=== PATIENT | female | born 1990 ===

== ENCOUNTER 2020-02-18 12:20 | Outpatient (REF) | payer MEDICAID, SELFPAY | END 2020-02-18 12:21 | disposition home or self-care (01) | LOC: HO.LAB 12:20 | PROVIDERS: Visit Provider Internal Medicine | DX: Z20.828 Contact with and (suspected) exposure to other viral communicable diseases (principal) | CPT/HCPCS: C9803; U0003 ==

== ENCOUNTER 2020-08-04 17:44 | Emergency (ER) | payer MEDICAID, SELFPAY ==
[2020-08-04 18:00] VITALS: BP 119/62; PULSE 88; RESP 18; TEMP 36; O2SAT 99; BMI 46.9
--- NOTE | 2020-08-04 19:52 | ED.SKABFB ---
HPI - Skin/Abscess/Foreign Bdy General Chief complaint: Skin/Abscess/Foreign Body Stated complaint: infection? rash Source: patient Mode of arrival: ambulatory Limitations: no limitations History of Present Illness HPI narrative: Patient presents to ED for erythematous rash around surgical wound that has been occurring for the past 2 days. Patient states she had laparoscopic cholecystectomy July 23 in [place] and the past 2 days the 3 holes of entry has surrounding erythema, but negative for discharge. Related Data Previous Rx's Medication Instructions Recorded cephalexin 500 mg PO QID #28 cap 08/04/20 doxycycline hyclate 100 mg PO BID #14 cap 08/04/20 naproxen 500 mg PO BID PRN #28 tab 08/04/20 Allergies Allergy/AdvReac Type Severity Reaction Status Date / Time No Known Allergies Allergy Verified 08/04/20 18:55 Pt states no food allergies Allergy Unknown Unknown Uncoded 08/04/20 18:55 Review of Systems Review of Systems: Yes all other systems are reviewed and are negative Constitutional: Constitutional: Reports as per HPI and Reports no additional constitutional complaints Eyes: Eyes: Reports as per HPI and Reports no additional eye complaints ENT: Reports system reviewed and no additional complaints, except as documented and Reports as per HPI Cardiovascular: Cardiovascular: Reports as per HPI and Reports no additional cardiovascular complaints Respiratory: Respiratory: Reports as per HPI and Reports no additional respiratory complaints Gastrointestinal: Gastrointestinal: Reports as per HPI and Reports no additional gastrointestinal complaints Genitourinary: Genitourinary: Reports no additional female genitourinary complaints and Reports as per HPI Musculoskeletal: Musculoskeletal: Reports no additional musculoskeletal complaints and Reports as per HPI Neurologic: Reports system reviewed and no additional complaints, except as documented and Reports as per HPI Psychiatric: Psychiatric: Reports no additional psychiatric complaints and Reports as per HPI PMFSH Past Medical History Surgical History (Updated 08/04/20 @ 18:07 by Samson Oliveira) Hx of section Hx of tonsillectomy S/P cholecystectomy Family History Family History (Updated 05/14/20 @ 13:48 by Leighann Velez MA) Father Hypertension Mother Diabetes Maternal Grandmother Diabetes Paternal Grandfather Diabetes Cancer Paternal Grandmother Diabetes Arthritis of knee Social History Social History Advance Directives: No Advance Directives Information Provided: Yes Physical Exam Vital Signs: Vital Signs: Last Vital Signs Temp 96.8 F 08/04/20 18:00 Pulse 88 08/04/20 18:00 Resp 18 08/04/20 18:00 BP 119/62 08/04/20 18:00 Pulse Ox 99 08/04/20 18:00 Body Mass Index 46.9 Const: General: cooperative, healthy appearing, comfortable, no acute distress, well developed, alert and awake Orientation/consciousness: patient oriented x3 HENMT: Head: Yes normal to inspection, Yes No palpable skull fracture present, Yes normocephalic and Yes atraumatic Eyes: General: appearance normal, both eyes and all related structures Neck: Neck: Yes normal visual inspection, Yes full ROM, Yes no lymphadenopathy, Yes trachea midline, Yes supple and No tender Chest: Chest palpation & inspection: normal inspection of the chest and normal palpation of entire chest wall Resp: Effort & Inspection: normal respiratory effort and able to speak in complete sentences Auscultation: clear to auscultation bilaterally Cardio: Jugular venous distension: no JVD Heart sounds: S1 normal heart sound present and S2 normal heart sound present GI: Other: Positive for warmth and erythema around wound above umbilicus, and laparoscopic holes in right upper quadrant. All wounds negative for any pus discharge. Negative for abdominal tenderness Inspection: Yes normal to inspection and No abdominal wall ecchymosis Palpation (GI): Soft to palpation, not firm, nontender, no guarding and not rigid : General: No CVA tenderness and Yes no CVA tenderness Back/Spine/Pelvis: Back: no CVA tenderness, No CVA tenderness and No back tenderness Skin: Other: cellulitis on surgical wounds on [facility] General skin exam: no rashes or lesions noted and elasticity normal Neuro: General: patient oriented x3, gait normal and CN's II-XI intact bilaterally Cranial nerves: Yes CN's II-XII intact bilaterally Extrem: General: Yes normal to inspection and Yes full ROM Psych: Appearance: grossly normal, well kempt and not disheveled Course Course Course Narrative: History physical exam indicate cellulitis Reevaluation(s) Reevaluation #1: No labs indicated and not suspecting any abdominal abscess. Will discharge with antibiotics. Patient informed to follow up without surgical team at [facility] MDM - Skin/Abscess/Foreign Bdy MDM Narrative Medical decision making narrative: Cellulitis Discharge Plan Discharge Clinical Impression: Cellulitis, Postoperative wound infection Patient Disposition: Home, Self-Care Instructions: Wound Infection (ED), Cellulitis (ED) Additional Instructions: Regrese al servicio de urgencias si tiene dolor abdominal, enrojecimiento que empeora, secreci?n de pus, mal olor, fiebre, escalofr?os o cualquier otro s?ntoma preocupante. Antonette un seguimiento con el cirujano al que lo hemos referido en [facility]. Prescriptions: New cephalexin 500 mg capsule 500 mg PO QID Qty: 28 RF: 0 doxycycline hyclate 100 mg capsule 100 mg PO BID Qty: 14 RF: 0 naproxen 500 mg tablet 500 mg PO BID PRN (Reason: pain) Qty: 28 RF: 0 Referrals: Zino Burgos MD [Physician] - 2 days (Status post cholecystectomy 07/23 in [place]. Now with wound infection/cellulitis) Stand Alone Forms: Work/School Release Interventions: ED Discharge Assessment Last Done: 08/04/20 20:18 Discharge Date/Time: 08/04/20 20:19 Print Language: Gabonese
== END 2020-08-04 20:19 | disposition home or self-care (01) ==
PROVIDERS: Emergency Provider Internal Medicine
DX: L03.311 Cellulitis of abdominal wall (principal); Z79.899 Other long term (current) drug therapy
CPT/HCPCS: 99283

== ENCOUNTER → 2020-09-06 08:05 | Outpatient (BNVA) | payer MEDICAID, SELFPAY | PROVIDERS: Visit Provider Internal Medicine ==

== ENCOUNTER 2020-10-24 22:04 | Emergency (ER) | payer MEDICAID, SELFPAY ==
[2020-10-24 22:07] VITALS: BP 120/59; PULSE 73; RESP 18; TEMP 36.9; O2SAT 98; BMI 45.1
--- NOTE | 2020-10-24 23:15 | PC.NURSE ---
at bedside for primary eval.
--- NOTE | 2020-10-24 23:17 | ED.HA ---
HPI - Headache General Chief Complaint: Headache Stated Complaint: Headache Time Seen by Provider: 10/24/20 22:26 Source: patient Mode of arrival: ambulatory Limitations: no limitations History of Present Illness MD elicited complaint: headache Onset (ago): hour(s) (several started upon waking today) Onset description: gradually Location: left and temporal Severity: moderate Quality & Timing: throbbing and progressively worsening Exacerbating factors: light and noise Relieving factors: nothing Context: occurred at rest Associated symptoms: none Treatments prior to arrival: acetaminophen Related Data Previous Rx's Medication Instructions Recorded cephalexin 500 mg capsule 500 mg PO QID #28 cap 08/04/20 doxycycline hyclate 100 mg capsule 100 mg PO BID #14 cap 08/04/20 rytcrehzyl-lajpdtvizrwii-vfjbpqsj 1 tab PO Q6H PRN #20 tab 10/24/20 50 mg-325 mg-40 mg tablet cyclobenzaprine 10 mg tablet 10 mg PO TID PRN #14 tab 10/24/20 ondansetron 4 mg disintegrating 4 mg PO Q8H PRN #20 tab 10/24/20 tablet Allergies Allergy/AdvReac Type Severity Reaction Status Date / Time No Known Allergies Allergy Verified 09/06/20 08:42 Pt states no food allergies Allergy Unknown Unknown Uncoded 09/06/20 08:42 Review of Systems Review of Systems: Constitutional : No Fever, No Chills, No Fatigue ENT/Mouth : No sore throat, No Rhinorrhea Eyes: No Eye Pain, No Swelling, No Redness Cardiovascular : No Chest Pain, No SOB, No Dyspnea on Exertion Respiratory : No Cough, No Sputum Gastrointestinal : No Nausea, No Vomiting, No Diarrhea, No abdominal Pain Genitourinary : No Dysuria, No Urinary Frequency, No Hematuria, Musculoskeletal : No joint pain, No Myalgias, No Joint Swelling Skin : No Skin Lesions, No rash Neuro : No Weakness, No Numbness, No Dizziness, positive Headache Psych : No Anxiety/Panic, No Depression Heme/Lymph: No Bruising, No Bleeding,No Lymphadenopathy Endocrine : No Polyuria, No Polydipsia All other systems reviewed and are negative [facility] Past Medical History Medical History PCOS (polycystic ovarian syndrome) Surgical History Hx of section Hx of tonsillectomy S/P cholecystectomy Family History Family History Father Hypertension Mother Diabetes Maternal Grandmother Diabetes Paternal Grandfather Diabetes Cancer Paternal Grandmother Diabetes Arthritis of knee Social History Social History Household Members: Children Patient Tobacco Use Status: Never used Tobacco Advance Directives: No Advance Directives Information Provided: Yes Patient : No Physical Exam Vital Signs: Vital Signs: Last Vital Signs Temp 98.5 F 10/24/20 22:07 Pulse 73 10/24/20 22:07 Resp 18 10/24/20 22:07 BP 120/59 L 10/24/20 22:07 Pulse Ox 98 10/24/20 22:07 Body Mass Index 45.1 Appearance: Alert. Oriented X3. No acute distress. Eyes: Pupils equal, round and reactive to light. ENT: Pharynx normal. Neck: Normal inspection. Neck supple. no meningeal signs CVS: Normal heart rate and rhythm. Pulses normal. Respiratory: No respiratory distress. Breath sounds normal. Abdomen: Soft and non-tender. Skin: Skin warm and dry. Normal skin color. Normal skin turgor. Extremities: No lower extremity edema. No calf ttp Neuro: Oriented X 3. No motor deficit. No sensory deficit. Course Course Course Narrative: feels better stable for DC MDM - Headache MDM Narrative Medical decision making narrative: 30 yo female no AC therapy here with gradual onset L sided throbbing pain - no fevers normal neuro exam no meningeal signs suspect migraine vs tension headache doubt [employer] infection/SAH - will provider supportive care IM toradol/fioricet/zofran. Dispo per results and findings. Lab Data Labs: Lab Results 10/24/20 10/24/20 10/24/20 Range/Units 23:24 23:24 23:24 Urine Color YELLOW Urine Appearance HAZY Urine pH 6.0 (5.0-8.0) Ur Specific [place] >= 1.030 H (1.005-1.025) Urine Protein NEG (NEG-TRACE) MG/DL Urine Glucose (UA) NEG (NEG) MG/DL Urine Ketones NEG (NEG) MG/DL Urine Blood NEG (NEG) Urine Nitrite NEG (NEG) Ur Leukocyte Esterase NEG (NEG) Urine Test NEGATIVE (NEGATIVE) COVID-19 (GEORGI) Negative (Negative) COVID-19 Clin Com See Note Discharge Plan Discharge Clinical Impression: Tension headache Instructions: Tension Headache (ED) Additional Instructions: return to ED for any worsening symptoms or concerns Prescriptions: New cyclobenzaprine 10 mg tablet 10 mg PO TID PRN (Reason: muscle spasm) Qty: 14 RF: 0 yhovzxgzms-epsqkphbveszw-ifcw 50-325-40 mg tablet 1 tab PO Q6H PRN (Reason: pain) Qty: 20 RF: 0 ondansetron 4 mg tablet,disintegrating 4 mg PO Q8H PRN (Reason: nausea and vomiting) Qty: 20 RF: 0 No Action cephalexin 500 mg capsule 500 mg PO QID Qty: 28 RF: 0 doxycycline hyclate 100 mg capsule 100 mg PO BID Qty: 14 RF: 0 [facility]: [facility] [Primary Care Provider[facility] - 2 days (as needed) Stand Alone Forms: Work/School Release
[2020-10-24] MEDS: Ketorolac Tromethamine 60 MG/2 ML VIAL IM (23:23)
[2020-10-24] MEDS: Ondansetron ODT 4 MG TAB.RAPDIS TRANSLINGU (23:23)
[2020-10-24] MEDS: Butalb/Acetamin/Caff 50/325/40 TABLET 1 TAB PO (23:23)
--- NOTE | 2020-10-24 23:28 | PC.NURSE ---
UA and Cindaid obtained and sent. Pt medicated per MAY.
[2020-10-24 23:33] LABS: Glucose Urine UA NEG (NEG); Leukocyte Esterase Urine NEG (NEG); Nitrite Urine NEG (NEG); Specific Gravity - Urine >= 1.030 (1.005-1.025); Urine Blood NEG (NEG); Urine Ketones NEG (NEG); Urine Protein NEG (NEG-TRACE)
[2020-10-24 23:41] LABS: Appearance Urine HAZY; Color Urine YELLOW; UPreg QC Valid YES; Urine Pregnancy NEGATIVE (NEGATIVE)
[2020-10-24 23:50] LABS: COVID-19 Test Negative (Negative)
== END 2020-10-25 00:05 | disposition home or self-care (01) ==
PROVIDERS: Student in an Organized Health Care Education/Training Program; Emergency Provider Emergency Medicine
DX: G44.209 Tension-type headache, unspecified, not intractable (principal); Z20.822 Contact with and (suspected) exposure to COVID-19; Z79.899 Other long term (current) drug therapy
CPT/HCPCS: 36415; 81003; 81025; 87635; 96372; 99283; 99284; J1885

== ENCOUNTER 2020-11-01 13:57 | Outpatient (REF) | payer MEDICAID, SELFPAY ==
[2020-11-02 04:57] LABS: CT PCR NOT DETECTED (Not Detect.); NG PCR NOT DETECTED (Not Detect.)
[2020-11-02 09:36] LABS: BV Int Neg Control Negative (Negative); BV Int Pos Control Positive (Positive)
[2020-11-04 15:12] LABS: HPV mRNA E6/E7 rflx Not Detected (Not Detected)
== END 2020-11-01 13:58 | disposition home or self-care (01) ==
LOC: HO.LAB 13:57
PROVIDERS: Visit Provider Obstetrics & Gynecology
DX: Z01.411 Encounter for gynecological examination (general) (routine) with abnormal findings (principal); Z11.3 Encounter for screening for infections with a predominantly sexual mode of transmission; Z11.51 Encounter for screening for human papillomavirus (HPV); R10.2 Pelvic and perineal pain; E28.2 Polycystic ovarian syndrome; N93.8 Other specified abnormal uterine and vaginal bleeding
CPT/HCPCS: 87480; 87491; 87510; 87591; 87624; 87660; 88142; 99212

== ENCOUNTER 2020-11-10 10:26 | Outpatient (REF) | payer MEDICAID, SELFPAY | END 2020-11-10 10:27 | disposition home or self-care (01) | LOC: HO.LAB 10:26 | PROVIDERS: Visit Provider Obstetrics & Gynecology | DX: N93.8 Other specified abnormal uterine and vaginal bleeding (principal) | CPT/HCPCS: 58100; 88305 ==

== ENCOUNTER → 2020-11-24 11:54 | Outpatient (BNVA) | payer MEDICAID, SELFPAY | PROVIDERS: Visit Provider Obstetrics & Gynecology ==

== ENCOUNTER 2020-12-23 13:35 | Outpatient (REF) | payer MEDICAID, SELFPAY ==
--- NOTE | ~2020-12-23 | US_ITS ---
EXAMINATION: US PELVIC AND TRANSVAGINAL CLINICAL INFORMATION: Perineal pain. LMP 12/07/2020. COMPARISON: Most recent pelvic ultrasound dated 04/09/2017. TECHNIQUE: Ultrasound of the pelvis is performed using both transabdominal and transvaginal transducers along with Doppler. Transvaginal imaging is performed due to inadequate visualization transabdominally. FINDINGS: Uterus: The uterus is retroflexed and measures 12.7 x 3.8 x 5.4 cm. The double wall endometrial thickness is 1.1 mm. The uterus is smooth in contour and has normal myometrial echogenicity. No visible fibroid. Adnexa: Both ovaries are visualized. There is normal color flow to the adnexa. There is no ovarian torsion. There is no pelvic ascites or fluid collection. Right ovary measures 2.5 x 2.4 x 2.1 cm. Right ovarian volume of 6.6 mL. Left ovary measures 2.1 x 1.4 x 1.5 cm. Left ovarian volume of 2.3 mL. US/US pelvic and transvaginal IMPRESSION: Unremarkable examination.
== END 2020-12-23 13:36 | disposition home or self-care (01) ==
LOC: HO.US 13:35
PROVIDERS: Visit Provider Obstetrics & Gynecology
DX: R10.2 Pelvic and perineal pain (principal)
CPT/HCPCS: 76830; 76856

== ENCOUNTER → 2021-01-06 13:37 | Outpatient (BNVA) | payer MEDICAID, SELFPAY | PROVIDERS: Visit Provider Obstetrics & Gynecology ==

== ENCOUNTER → 2021-03-16 08:56 | Outpatient (BNVA) | payer MEDICAID, SELFPAY | PROVIDERS: Visit Provider Internal Medicine ==

== ENCOUNTER → 2021-04-21 12:53 | Outpatient (BNVA) | payer MEDICAID, SELFPAY | PROVIDERS: Visit Provider Obstetrics & Gynecology | DX: N93.8 Other specified abnormal uterine and vaginal bleeding (principal) | CPT/HCPCS: 99212 ==

== ENCOUNTER 2021-11-02 07:00 | Outpatient (RCR) | payer MEDICAID, SELFPAY ==
[2021-10-26 07:08] VITALS: BP 123/61; PULSE 65; O2SAT 100
== END 2022-02-06 11:49 | disposition home or self-care (01) ==
LOC: HO.PT 07:00
PROVIDERS: PCP Nurse Practitioner Primary Care; Visit Provider Nurse Practitioner Primary Care
DX: M25.511 Pain in right shoulder (principal); M25.512 Pain in left shoulder; M54.9 Dorsalgia, unspecified
CPT/HCPCS: 97110; 97161

== ENCOUNTER 2021-11-17 10:56 | Outpatient (REF) | payer MEDICAID, SELFPAY | END 2021-11-17 10:57 | disposition home or self-care (01) | LOC: HO.LNP 10:56 | PROVIDERS: Visit Provider Obstetrics & Gynecology | DX: Z13.89 Encounter for screening for other disorder (principal) ==

== ENCOUNTER 2021-11-17 16:34 | Outpatient (REF) | payer MEDICAID, SELFPAY ==
[2021-11-18 03:06] LABS: CT PCR NOT DETECTED (Not Detect.); NG PCR NOT DETECTED (Not Detect.)
[2021-11-18 08:43] LABS: BV Int Neg Control Negative (Negative); BV Int Pos Control Positive (Positive)
== END 2021-11-17 16:35 | disposition home or self-care (01) ==
LOC: HO.LNP 16:34
PROVIDERS: Visit Provider Obstetrics & Gynecology
DX: Z01.419 Encounter for gynecological examination (general) (routine) without abnormal findings (principal)
CPT/HCPCS: 87480; 87491; 87510; 87591; 87660

== ENCOUNTER 2022-01-05 11:38 | Outpatient (REF) | payer MEDICAID, SELFPAY ==
--- NOTE | ~2022-01-05 | US_ITS ---
EXAMINATION: US PELVIS CLINICAL INFORMATION: Dysmenorrhea. LMP 12/05/2021 COMPARISON: Previous pelvic ultrasound December 2020 TECHNIQUE: Ultrasound of the pelvis is performed using both transabdominal and transvaginal transducers along with Doppler. Transvaginal imaging is performed due to inadequate visualization transabdominally. FINDINGS: The uterus is anteverted and retroflexed and measures 11 x 5 x 6 cm. No focal uterine lesion. Endometrial thickness is normal measuring 1.5 cm. The ovaries are normal. The right ovary measures 3 x 2 x 3 cm and the left ovary measures 2.3 x 2 x 1.4 cm. There is a small amount of fluid in the pelvis. US/US pelvic complete IMPRESSION: Unremarkable exam.
== END 2022-01-05 11:39 | disposition home or self-care (01) ==
LOC: HO.US 11:38
PROVIDERS: Visit Provider Obstetrics & Gynecology
DX: N94.6 Dysmenorrhea, unspecified (principal)
CPT/HCPCS: 76856

== ENCOUNTER 2022-01-13 15:56 | Outpatient (REF) | payer MEDICAID, SELFPAY ==
[2022-01-13 16:49] LABS: Alanine Aminotransferase 14 U/L (0-31); Albumin Level 4.3 g/dL (3.5-5.0); Alkaline Phosphatase 74 U/L (39-117); Anion Gap 16 (12-20); Aspartate Amino Transferase 16 U/L (5-31); Bilirubin Total 0.3 mg/dL (0.0-1.0); Blood Urea Nitrogen 15 mg/dL (9-16); Calcium 10.3 mg/dL (8.4-10.2); Carbon Dioxide 26 mmol/L (22-29); Chloride 104 mmol/L (96-108); Estimated Glomerular Filt Rate > 60; Glucose Random 86 mg/dL (60-115); Potassium 4.8 mmol/L (3.3-5.1); Sodium 141 mmol/L (135-145); Total Protein 7.5 g/dL (6.5-8.0)
[2022-01-13 16:56] LABS: HCG Quantitative < 2 mIU/mL
[2022-01-13 17:08] LABS: Syphilis Screen Nonreactive (Nonreactive)
[2022-01-15 02:00] LABS: Sex Hormone Binding Globulin 47 nmol/L (17-124)
[2022-01-16 04:58] LABS: HBsAGNum1 0.19 S/CO (0.00-0.99); HIV AB/AG Nonreactive (Nonreactive); HIV Num 1 0.08 S/CO (0.00-0.99); Hepatitis B Surface Antigen Negative (Negative); ~HepC Num1 0.09 S/CO (0.00-0.79); ~Hepatitis C Antibody Nonreactive (Nonreactive)
[2022-01-18 14:21] LABS: Testosterone, Total 23 ng/dL (2-45)
== END 2022-01-13 15:57 | disposition home or self-care (01) ==
LOC: HO.LAB 15:56
PROVIDERS: Absent Provider Obstetrics & Gynecology; Visit Provider Internal Medicine
DX: E28.2 Polycystic ovarian syndrome (principal); N76.0 Acute vaginitis; B96.89 Other specified bacterial agents as the cause of diseases classified elsewhere
CPT/HCPCS: 36415; 80053; 84270; 84402; 84403; 84702; 86780; 86803; 87340; 87389

== ENCOUNTER → 2022-01-19 09:02 | Outpatient (BNVA) | payer MEDICAID, SELFPAY | PROVIDERS: PCP Nurse Practitioner Primary Care; Visit Provider Obstetrics & Gynecology | DX: N94.6 Dysmenorrhea, unspecified (principal) | CPT/HCPCS: 99212 ==

== ENCOUNTER → 2022-01-26 13:42 | Outpatient (BNVA) | payer MEDICAID, SELFPAY | PROVIDERS: Visit Provider Internal Medicine | DX: E28.2 Polycystic ovarian syndrome (principal); E04.9 Nontoxic goiter, unspecified | CPT/HCPCS: 99212 ==

== ENCOUNTER 2022-02-04 20:19 | Emergency (ER) | payer MEDICAID, SELFPAY ==
[2022-02-04 21:17] VITALS: BP 128/69; PULSE 80; RESP 20; TEMP 36.6; O2SAT 100; BMI 38.9
[2022-02-04 21:30] LABS: MANUAL DIFF FLAG NO
[2022-02-04 21:31] LABS: Basophils Percent Auto 0.5 % (0-2); Eosinophils Absolute Auto 0.4 X10*3/uL (0.0-0.4); Eosinophils Percent Auto 4.4 % (0-4); Hematocrit 40.8 % (37.0-47.0); Hemoglobin 12.9 g/dl (12.0-16.0); Imm Gran Abs Auto 0.01 X10*3/uL (0.00-0.03); Imm Gran Pct Auto 0.1 % (0.0-0.4); Lymphocytes Absolute Auto 2.5 X10*3/uL (1.2-4.9); Lymphocytes Percent Auto 28.4 % (20-40); Mean Corpuscular HGB Conc 31.6 g/dl (31.0-35.0); Mean Corpuscular Hemoglobin 24.3 pg (27.0-33.0); Mean Corpuscular Volume 76.8 fL (80.0-98.0); Mean Platelet Volume 9.8 fL (9.4-12.3); Monocytes Absolute Auto 0.9 X10*3/uL (0.1-1.2); Monocytes Percent Auto 10.3 % (2-11); Neutrophils Percent Auto 56.3 % (45-73); Platelet Count 298 X10*3/uL (160-400); Red Blood Count 5.31 X10*6/uL (4.20-5.50); Red Cell Distribution Width 15.7 % (11.0-16.0); White Blood Count 8.9 X10*3/uL (4.8-10.8)
[2022-02-04 22:06] LABS: Appearance Urine Clear; Color Urine Yellow; Glucose Urine UA Negative (Negative); Leukocyte Esterase Urine Negative (Negative); Nitrite Urine Negative (Negative); Specific Gravity - Urine >= 1.030 (1.005-1.025); Urine Blood Negative (Negative); Urine Ketones Negative (Negative); Urine Protein Negative (Neg-Trace)
[2022-02-04 22:13] LABS: Anion Gap 14 (12-20); Blood Urea Nitrogen 22 mg/dL (9-16); Calcium 9.6 mg/dL (8.4-10.2); Carbon Dioxide 25 mmol/L (22-29); Chloride 107 mmol/L (96-108); Creatinine Clr Calc Pharmacy 116.2; Estimated Glomerular Filt Rate > 60; Glucose Random 79 mg/dL (60-115); Sodium 142 mmol/L (135-145)
--- NOTE | 2022-02-04 22:25 | ED.GENADULT ---
HPI - General Adult General Chief complaint: General Medical Stated complaint: constipated Time Seen by Provider: 02/04/22 22:25 Source: patient Mode of arrival: ambulatory Limitations: language barrier (Patient speaks some Kyrgyz, 1st language is Georgian, official court interpreter used) History of Present Illness HPI narrative: 31-year-old female who presents emergency department for evaluation of constipation and a bleeding hemorrhoid. Patient states she has been on iron for approximately 3 weeks for anemia and this is made her constipated. She states that over the last week she has only had small hard bowel movements. She states that yesterday while she was straining at the stool she noted blood and a painful hemorrhoid . She states she also felt very lightheaded and dizzy after she tried to move her bowels. She states this morning she had a very small hard stool. complaint: Constipation Onset (ago): week(s) (1) Location: buttocks (Painful him) Radiation: non-radiation Severity: moderate Quality: burning Pain Consistency: constant Relieving factors: none Exacerbating factors: other (Bowel moved) Associated symptoms: cough, fever/chills, loss of appetite and nausea/vomiting Treatments prior to arrival: none Related Data Home Medications Medication Instructions Recorded Confirmed cholecalciferol (vitamin D3) 25 25 mcg PO DAILY 01/19/22 01/26/22 mcg (1,000 unit) tablet ferrous gluconate 324 mg (38 mg mg PO DAILY 01/19/22 01/26/22 iron) tablet progesterone micronized 200 mg 200 mg PO BEDTIME 01/26/22 01/26/22 capsule (Prometrium) Previous Rx's Medication Instructions Recorded kefjbfauca-ztvquqfykkjeh-ojltmyun 1 tab PO Q6H PRN pain #20 tabs 10/24/20 50 mg-325 mg-40 mg tablet ondansetron 4 mg disintegrating 4 mg PO Q8H PRN nausea and 10/24/20 tablet vomiting #20 tabs Allergies Allergy/AdvReac Type Severity Reaction Status Date / Time No Known Allergies Allergy Verified 01/26/22 13:51 Review of Systems Review of Systems: Yes all other systems are reviewed and are negative [facility] Past [facility] History [facility] Narrative: Social history: She denies tobacco, alcohol and drug use. Medical History Anemia Goiter PCOS (polycystic ovarian syndrome) Surgical History Hx of section Hx of cholecystectomy Hx of tonsillectomy Family History Family History Father Hypertension Mother Diabetes Maternal Grandmother Diabetes Paternal Grandfather Diabetes Cancer Paternal Grandmother Diabetes Arthritis of knee Social History Social History Household Members: Children Housing: House Alcohol intake: never Patient Tobacco Use Status: Never used Tobacco Smoked in Last 30 Days: No Use of substances other than those prescribed or required for medical reasons: No Advance Directives: No Advance Directives Information Provided: No Patient : No Sexual orientation: Straight/Heterosexual Gender identity: Female Physical Exam ED Vital Signs: Vital Signs - 24 hr 02/04/22 21:17 Temperature 97.9 F Pulse Rate 80 Respiratory Rate 20 Blood Pressure 128/69 Pulse Oximetry 100 Oxygen Delivery Method Room Air BMI result Body Mass Index 38.9 Const General: cooperative and no acute distress Orientation/consciousness: oriented to person and oriented to place Limitations: no limitations HENMT Head: Yes normal to inspection, Yes normocephalic and Yes atraumatic Ears: external ears normal General nose exam: Normal external nose present Face and sinus: Yes normal facial exam Mouth: Normal oral and palatal mucosa present Throat: Yes posterior oropharynx normal Eyes General: appearance normal, both eyes and all related structures Pupils: Equal, round and reactive pupils present Neck Neck: Yes normal visual inspection, Yes no lymphadenopathy, Yes trachea midline and Yes supple Chest Chest palpation & inspection: normal inspection of the chest and normal palpation of entire chest wall Resp Effort & Inspection: normal respiratory effort and able to speak in complete sentences Auscultation: clear to auscultation bilaterally Cardio Rate: regular rate Rhythm: regular rhythm Heart sounds: S1 normal heart sound present, S2 normal heart sound present and no murmurs GI Inspection: Yes normal to inspection Palpation (GI): Soft to palpation, nontender and no guarding Auscultation: normal bowel sounds Rectal Exam - Female: deferred (Patient states that her hemorrhoid was too painful to do a digital exam) and External hemorrhoid(s) present (Small, soft, nonthrombosed) General: Yes no CVA tenderness Back/Spine/Pelvis Back: no CVA tenderness Skin General skin exam: no rashes or lesions noted Neuro General: oriented to person and oriented to place Cranial nerves: Yes CN's II-XII intact bilaterally and Yes Equal, round and reactive pupils present Cognition (Neuro): normal cognition Motor exam (neuro): 5/5 motor strength present throughout Extrem General: Yes normal to inspection Psych Appearance: grossly normal Speech and movement: Normal speech and movement present Affect: normal affect Attitude: cooperative Thought process: Normal thought process present Thought content: Normal thought content present 31-year-old female who presents emergency department for evaluation of constipation x1 week and a painful hemorrhoid. Patient's exam did reveal a tender hemorrhoid which was non thrombosed otherwise exam was unremarkable. The patient's laboratory evaluation revealed a normal H&H of 12 and 40.8. Advised to stop taking her iron since this is making her constipated. Patient does have a tender hemorrhoid which is nonthrombosed. The patient was given instructions on taking caqj-zcc-wyscbng medicines including Colace, Metamucil, Senokot, preparation H cream and suppositories. She was given printed and verbal instructions and discharged home. Medical Decision Making Lab Data Result diagrams: 02/04/22 21:25 02/04/22 21:25 Labs: Lab Results 02/04/22 02/04/22 02/04/22 Range/Units 21:25 21:25 21:57 WBC 8.9 (4.8-10.8) X10*3/uL RBC 5.31 (4.20-5.50) X10*6/uL Hgb 12.9 (12.0-16.0) g/dl Hct 40.8 (37.0-47.0) % MCV 76.8 L (80.0-98.0) fL MCH 24.3 L (27.0-33.0) pg MCHC 31.6 (31.0-35.0) g/dl RDW 15.7 (11.0-16.0) % Plt Count 298 (160-400) X10*3/uL MPV 9.8 (9.4-12.3) fL Immature Gran % (Auto) 0.1 (0.0-0.4) % Neut % (Auto) 56.3 (45-73) % Lymph % (Auto) 28.4 (20-40) % [place] % (Auto) 10.3 (2-11) % Eos % (Auto) 4.4 H (0-4) % Baso % (Auto) 0.5 (0-2) % Lymph # (Auto) 2.5 (1.2-4.9) X10*3/uL [place] # (Auto) 0.9 (0.1-1.2) X10*3/uL Eos # (Auto) 0.4 (0.0-0.4) X10*3/uL Baso # (Auto) 0.0 (0.0-0.2) X10*3/uL Abs Immat Gran (auto) 0.01 (0.00-0.03) X10*3/uL Absolute Neuts (auto) 5.0 (2.0-8.3) x10*3/uL Absolute Nucleated RBC 0.000 (0.0-0.012) X10*3/uL Nucleated RBC % (auto) 0.0 (0.0-0.2) /100WBC Sodium 142 (135-145) mmol/L Potassium 4.0 (3.3-5.1) mmol/L Chloride 107 (96-108) mmol/L Carbon Dioxide 25 (22-29) mmol/L Anion Gap 14 (12-20) BUN 22 H (9-16) mg/dL Creatinine 0.79 (0.5-1.4) mg/dL Estim Creat Clear Calc 116.2 Estimated GFR > 60 Random Glucose 79 (60-115) mg/dL Calcium 9.6 D (8.4-10.2) mg/dL Urine Color Yellow Urine Appearance Clear Urine pH 5.0 (5.0-9.0) Ur Specific [place] >= 1.030 H (1.005-1.025) Urine Protein Negative (Neg-Trace) mg/dL Urine Glucose (UA) Negative (Negative) mg/dL Urine Ketones Negative (Negative) mg/dL Urine Blood Negative (Negative) Urine Nitrite Negative (Negative) Ur Leukocyte Esterase Negative (Negative) Discharge Plan Discharge Clinical Impression: Acute hemorrhoid Constipation Qualifiers: Constipation type: drug induced constipation Qualified Code(s): K59.03 - Drug induced constipation Patient Disposition: Home, Self-Care Instructions: Constipation (ED) Additional Instructions: Your anemia improved and your hemoglobin and hematocrit are 12 and 40.8 which is normal. Stop taking your iron. Take Colace stool softeners, 1 pill twice a day for 2 weeks. Take Metamucil 1 tsp in 8 oz of water for 2 weeks, this will help you move your bowels. Take extra-strength Senokot 1 pill twice a day for 4 days. This is a laxative that will help you move your bowels. Use preparation H suppositories twice a day and after each bowel movement Use preparation H cream twice a day and after each bowel movement, try to tuck your hemorrhoid back and this will make it feel better. Follow-up with your doctor in 2 days. Please return to the emergency department if your symptoms get worse or if you develop any symptoms that are concerning to you. Prescriptions: No Action nrrmcyxqol-gnylcjbiacaaw-ygyb 50-325-40 mg tablet 1 tab PO Q6H PRN (Reason: pain) Qty: 20 0RF ondansetron 4 mg tablet,disintegrating 4 mg PO Q8H PRN (Reason: nausea and vomiting) Qty: 20 0RF ferrous gluconate 324 mg (38 mg iron) tablet PO DAILY cholecalciferol (vitamin D3) 25 mcg (1,000 unit) tablet 25 mcg PO DAILY progesterone micronized [Prometrium] 200 mg capsule 200 mg PO BEDTIME Rx Instructions: Take the pill 1 tablet a day cyclically every month from day 15-24 day 1 being the 1st day of next menstrual cycle
== END 2022-02-04 23:35 | disposition home or self-care (01) ==
PROVIDERS: Emergency Provider Emergency Medicine Emergency Medical Services
DX: K59.03 Drug induced constipation (principal); K64.4 Residual hemorrhoidal skin tags; D64.9 Anemia, unspecified
CPT/HCPCS: 36415; 80048; 81003; 85025; 99283; 99284

== ENCOUNTER 2022-02-07 18:09 | Emergency (ER) | payer OTHER, SELFPAY ==
[2022-02-07 19:39] VITALS: BP 117/75; PULSE 72; RESP 20; TEMP 36; O2SAT 100; BMI 38.9
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
[2022-02-07 21:19] VITALS: BP 119/65; PULSE 64; RESP 18; TEMP 36.6; O2SAT 100
[2022-02-07] MEDS: Lidocaine 4 % Patch ADH..PATCH 1 PATCH TRANSDERMA (21:26)
[2022-02-07] MEDS: Ketorolac Tromethamine 15 MG/ML VIAL IM (21:26)
[2022-02-07] MEDS: Acetaminophen 325 MG TABLET 975 MG PO (21:28)
--- NOTE | 2022-02-07 21:32 | PC.NURSE ---
pt retriaged, reporting 5/10 neck pain, medicated per provider order.
== END 2022-02-07 21:56 | disposition home or self-care (01) ==
PROVIDERS: Emergency Provider Emergency Medicine
DX: S13.4XXA Sprain of ligaments of cervical spine, initial encounter (principal); S13.9XXA Sprain of joints and ligaments of unspecified parts of neck, initial encounter; M54.2 Cervicalgia; R51.9 Headache, unspecified; V43.52XA Car driver injured in collision with other type car in traffic accident, initial encounter; Y93.9 Activity, unspecified; Y92.410 Unspecified street and highway as the place of occurrence of the external cause; Y99.9 Unspecified external cause status; Z79.899 Other long term (current) drug therapy
CPT/HCPCS: 96372; 99283; 99284; J1885

== ENCOUNTER 2022-02-10 07:57 | Outpatient (REF) | payer MEDICAID, SELFPAY ==
[2022-02-10 08:52] LABS: Cortisol Random 21.1 ug/dL
[2022-02-10 08:56] LABS: Alanine Aminotransferase 15 U/L (0-31); Albumin Level 4.1 g/dL (3.5-5.0); Alkaline Phosphatase 69 U/L (39-117); Anion Gap 10 (12-20); Aspartate Amino Transferase 12 U/L (5-31); Bilirubin Total 0.4 mg/dL (0.0-1.0); Blood Urea Nitrogen 11 mg/dL (9-16); Calcium 8.9 mg/dL (8.4-10.2); Carbon Dioxide 24 mmol/L (22-29); Chloride 105 mmol/L (96-108); Estimated Glomerular Filt Rate > 60; Free T4 (Free Thyroxine) 1.21 ng/dL (0.71-1.85); Glucose Random 96 mg/dL (60-115); Potassium 4.3 mmol/L (3.3-5.1); Sodium 135 mmol/L (135-145); Thyroid Stimulating Hormone 0.86 uIU/mL (0.32-4.0); Total Protein 7.2 g/dL (6.5-8.0)
[2022-02-10 11:39] LABS: Glucose Fasting 84 mg/dL (60-99)
[2022-02-10 13:27] LABS: Glucose 1 Hour 117 mg/dL
[2022-02-10 13:27] LABS: Glucose 2 Hour 87 mg/dL
[2022-02-11 17:13] LABS: Follicle Stimulating Hormone 6.2 mIU/mL; Lutenizing Hormone 3.2 mIU/mL; Prolactin 6.9 ng/mL; Sex Hormone Binding Globulin 41 nmol/L (17-124)
[2022-02-13 15:49] LABS: Adrenocorticotropic Hormone 17 pg/mL (6-50)
[2022-02-16 21:19] LABS: Testosterone, Free 1.6 pg/mL (0.1-6.4); Testosterone, Total 12 ng/dL (2-45)
[2022-02-19 03:59] LABS: Estradiol Free 0.33 pg/mL; Estradiol, Ultrasensitive 18 pg/mL
== END 2022-02-10 07:58 | disposition home or self-care (01) ==
LOC: HO.LAB 07:57
PROVIDERS: Visit Provider Internal Medicine
DX: E28.2 Polycystic ovarian syndrome (principal)
CPT/HCPCS: 36415; 80053; 82024; 82533; 82670; 82681; 83001; 83002; 84146; 84270; 84402; 84403; 84439; 84443

== ENCOUNTER 2022-02-17 14:06 | Outpatient (REF) | payer MEDICAID, SELFPAY ==
--- NOTE | ~2022-02-17 | US_ITS ---
EXAMINATION: US THYROID CLINICAL INFORMATION: Nontoxic goiter, unspecified. COMPARISON: None TECHNIQUE: Linear transducer grayscale and color Doppler examination with attention to the region of the thyroid. FINDINGS: SIZE: Measurements of the thyroid lobes and nodules are given in sagittal, anteroposterior and transverse dimensions respectively. Right Thyroid Lobe: 4.9 x 1.6 x 1.5 cm, volume 6.3 mL. Parenchyma: The gland echotexture is heterogeneous. Thyroid vascularity is normal. Left Thyroid Lobe: 4.8 x 1.7 x 1.6 cm, volume 6.8 mL. Parenchyma: The gland echotexture is heterogeneous. Thyroid vascularity is normal. Isthmus: 0.2 cm in maximum AP dimension. Estimated total number of nodules greater than or equal to 1 cm: 3. Eyeglass Lens Generator nodules are described as follows: 1. Location: Right mid pole. Size: 1.2 x 2.2 x 1.2 cm, volume 1.6 mL. Nodule characteristics: Composition: Solid/almost completely solid (2). Echogenicity: Hypoechoic (2). Shape: Not taller than wide (0). Margins: Lobulated (2). Echogenic Foci: None (0). ACR TI-RADS total points: 6 ACR TI-RADS category: 4 2. Location: Right lower pole. Size: 0.7 x 0.5 x 0.6 cm, volume 0.11 mL. Nodule characteristics: Composition: Solid/almost completely solid (2). Echogenicity: Hypoechoic (2). Shape: Not taller than wide (0). Margins: Smooth (0). Echogenic Foci: None (0). ACR TI-RADS total points: 4 ACR TI-RADS category: 4 3. Location: Left upper pole. Size: 0.9 x 0.5 x 0.7 cm, volume 0.16 mL. Nodule characteristics: Composition: Solid/almost completely solid (2). Echogenicity: Hypoechoic (2). Shape: Not taller than wide (0). Margins: Smooth (0). Echogenic Foci: None (0). ACR TI-RADS total points: 4 ACR TI-RADS category: 4 4. Location: Left mid pole. Size: 1.1 x 0.8 x 1.0 cm, volume 0.44 mL. Nodule characteristics: Composition: Mixed cystic and solid (1). Echogenicity: Hypoechoic (2). Shape: Not taller than wide (0). Margins: Smooth (0). Echogenic Foci: None (0). ACR TI-RADS total points: 3 ACR TI-RADS category: 3 5. Location: Left lower pole. Size: 1.7 x 0.8 x 0.7 cm, volume 0.50 mL. Nodule characteristics: Composition: Solid/almost completely solid (2). Echogenicity: Hypoechoic (2). Shape: Not taller than wide (0). Margins: Smooth (0). Echogenic Foci: Macrocalcifications (1). ACR TI-RADS total points: 5 ACR TI-RADS category: 4 NODES: No lymphadenopathy is seen in the tissue surrounding the thyroid gland. US/US thyroid IMPRESSION: Heterogeneous thyroid gland with bilateral thyroid nodules. Fine-needle aspiration of largest nodules in the right mid lobe and left lower lobe recommended. ACR TI-RADS RECOMMENDATION REFERENCE: Ultrasound-guided fine-needle aspiration, followup ultrasound, no further follow up. * TR1 (0 point) and TR 2 (2 points): No FNA or follow up. * TR3 (3 points): FNA if more than or equal to 2.5 cm in maximum dimension, followup ultrasound in 1, 3 and 5 years if 1.5 to 2.4 cm in maximum dimension. * TR4 (4-6 points): FNA if more than or equal to 1.5 cm in maximum dimension, followup ultrasound in 1, 2, 3 and 5 years if 1 to 1.4 cm in maximum dimension. * TR5 (more than or equal to 7 points): FNA if more than or equal to 1 cm in maximum dimension, followup ultrasound every year for 5 years if 0.5 to 0.9 cm in maximum dimension. * TR3, TR4 or TR5 nodules that are below the size threshold for followup receive no follow up.
== END 2022-02-17 14:07 | disposition home or self-care (01) ==
LOC: HO.HMGCX 14:06
PROVIDERS: Visit Provider Internal Medicine
DX: E04.9 Nontoxic goiter, unspecified (principal)
CPT/HCPCS: 76536

== ENCOUNTER 2022-05-04 09:07 | Outpatient (REF) | payer MEDICAID, SELFPAY ==
--- NOTE | 2022-05-04 09:43 | P.BOP_ITS ---
Brief Operative Note Date of Service: 05/04/22 Pre-op diagnosis: Multinodular Thyroid Procedure: This is doctor Mary Sewell. This is an ultrasound-guided fine-needle aspiration report. Date of Examination: 05/04/2022 Indication: Multinodular Thyroid Porcedure: Procedure was explained to the patient. Alternatives, the risk and benefits were discussed. Written consent was obtained. A time-out was also obtained. After sterile preparation, fine-needle aspiration of a left mid pole 2.3 cm thyroid nodule was performed using direct ultrasound guidance to confirm accurate needle placement. Four aspirations were made using 27 gauge needles. An additional 2 aspirations were made using 25 guage needles. Samples were submitted for cytology. One pass was dedicated for [employer] sequencing car worker helper testing. The patient tolerated the procedure well. Aftercare instructions were provided. Impression: Uncomplicated fine needle aspiration biopsy of a left mid pole 2.3 cm thyroid nodule under ultrasound guidance. Surgeon: Mary Sewell, DO Was an Real Estate Appraiser used for this Procedure?: No Estimated blood loss (mL): 0
[2022-05-04] MEDS: Lidocaine HCl 1 % MPF 5 ML VIAL SUBCUT (10:10)
== END 2022-05-04 09:08 | disposition home or self-care (01) ==
LOC: HO.US 09:07
PROVIDERS: Visit Provider Internal Medicine
DX: E04.2 Nontoxic multinodular goiter (principal)
CPT/HCPCS: 10005; 88172; 88173; 88177; 88305

== ENCOUNTER 2022-05-18 12:52 | Outpatient (REF) | payer MEDICAID, SELFPAY ==
[2022-05-18 16:48] LABS: Free T4 (Free Thyroxine) 0.82 ng/dL (0.71-1.85); Thyroid Stimulating Hormone 1.19 uIU/mL (0.32-4.0)
== END 2022-05-18 12:53 | disposition home or self-care (01) ==
LOC: HO.LAB 12:52
PROVIDERS: PCP Nurse Practitioner Primary Care; Visit Provider Internal Medicine
DX: E04.2 Nontoxic multinodular goiter (principal); E28.2 Polycystic ovarian syndrome; Z79.899 Other long term (current) drug therapy
CPT/HCPCS: 36415; 84439; 84443; 99212

== ENCOUNTER 2022-08-03 13:59 | Outpatient (REF) | payer MEDICAID, SELFPAY ==
[2022-08-03 15:56] LABS: Free T4 (Free Thyroxine) 0.84 ng/dL (0.71-1.85); Thyroid Stimulating Hormone 1.02 uIU/mL (0.32-4.0)
== END 2022-08-03 14:00 | disposition home or self-care (01) ==
LOC: HO.LAB 13:59
PROVIDERS: PCP Nurse Practitioner Primary Care; Visit Provider Internal Medicine
DX: E04.2 Nontoxic multinodular goiter (principal); E28.2 Polycystic ovarian syndrome; Z79.899 Other long term (current) drug therapy
CPT/HCPCS: 36415; 84439; 84443; 99212

== ENCOUNTER 2022-08-24 09:07 | Outpatient (REF) | payer MEDICAID, SELFPAY ==
[2022-08-25 01:17] LABS: CT PCR NOT DETECTED (Not Detect.); NG PCR NOT DETECTED (Not Detect.)
== END 2022-08-24 09:08 | disposition home or self-care (01) ==
LOC: HO.LNP 09:07
PROVIDERS: PCP Nurse Practitioner Primary Care; Visit Provider Obstetrics & Gynecology
DX: R10.2 Pelvic and perineal pain (principal)
CPT/HCPCS: 0353U; 81003; 99212

== ENCOUNTER 2022-09-05 16:10 | Outpatient (REF) | payer MEDICAID, SELFPAY ==
--- NOTE | ~2022-09-05 | US_ITS ---
EXAMINATION: US PELVIS CLINICAL INFORMATION: Pelvic and perineal pain. Currently menstruating. COMPARISON: 01/05/2022 TECHNIQUE: Ultrasound of the pelvis is performed using both transabdominal and transvaginal transducers along with Doppler. Transvaginal imaging is performed due to inadequate visualization transabdominally. FINDINGS: Uterus: The uterus is retroverted and measures 11.9 x 4.2 x 5.0 cm. The double wall endometrial thickness is 6 mm. The uterus is smooth in contour and has normal myometrial echogenicity. No visible fibroid. Adnexa: Both ovaries are visualized. There is normal color flow to the adnexa. There is no pelvic ascites or fluid collection. Right ovary measures 3.0 x 1.2 x 2.1 cm. Left ovary measures 2.7 x 2.3 x 1.8 cm. US/US pelvic and transvaginal IMPRESSION: Unremarkable pelvic ultrasound.
== END 2022-09-05 16:11 | disposition home or self-care (01) ==
LOC: HO.US 16:10
PROVIDERS: PCP Nurse Practitioner Primary Care; Visit Provider Obstetrics & Gynecology
DX: R10.2 Pelvic and perineal pain (principal)
CPT/HCPCS: 76830; 76856

== ENCOUNTER 2022-10-05 09:58 | Outpatient (AMB) | payer MEDICAID, SELFPAY ==
[2022-10-05 10:02] VITALS: BP 120/74; BMI 39.8
--- NOTE | 2022-10-05 10:02 | MHC.OFFVIS ---
Intake Vital Signs 10/05/22 10:02 Height 5 ft 3 in Weight 224 lb 13.944 oz BMI 39.8 BP 120/74 Intake Visit Reasons: US Follow up Health And Safety Director Required: Yes Health And Safety Director Language: Blow Molding Machine Operator Name: Nisreen BURK Information Interpreted: non-clinical & clinical Accompanied by: Self / Same As Patient Allergies No Known Allergies Allergy (Verified 10/05/22 10:03) Is last menstrual period known: Yes Last menstrual period: 10/05/22 HPI HPI Comments History of Present Illness Details Presenting for follow-up regarding pelvic pain workup. The workup included the following urine dip/urine test done in the office were negative. GC/chlamydia were negative. Pelvic ultrasound was done showed the following: Uterus: The uterus is retroverted and measures 11.9 x 4.2 x 5.0 cm. The double wall endometrial thickness is 6 mm.? The uterus is smooth in contour and has normal myometrial echogenicity. ? No visible fibroid. Adnexa: Both ovaries are visualized. There is normal color flow to the adnexa. There is no pelvic ascites or fluid collection. Right ovary measures 3.0 x 1.2 x 2.1 cm. Left ovary measures 2.7 x 2.3 x 1.8 cm. [facility] Medical History Anemia Goiter Multinodular thyroid PCOS (polycystic ovarian syndrome) Surgical History Hx of section Hx of cholecystectomy Hx of tonsillectomy Hx of ultrasound guided needle biopsy Family History Father Hypertension Mother Diabetes Maternal Grandmother Diabetes Paternal Grandfather Diabetes Cancer Paternal Grandmother Diabetes Arthritis of knee Social History Household Members: Children Housing: House Alcohol intake: never Patient Tobacco Use Status: Never used Tobacco Sexual orientation: Straight/Heterosexual Gender identity: Female Female Reproductive History Menstrual Age of Menarche: 11 Date of last menstrual period: 10/05/22 Review of Systems Const All systems reviewed & are unremarkable except as noted in HPI and below Reports as per HPI and Reports no additional complaints GI Reports no additional complaints Reports no additional complaints Physical Exam Vital Signs: Last Vital Signs BP 120/74 10/05/22 10:02 BMI result Body Mass Index 39.8 Assessment & Plan Assessment & Plan (1) Pelvic pain: Code(s): R10.2 - Pelvic and perineal pain Plan: Discussed with the patient the workup regarding her pelvic pain including GC/chlamydia, urine test and urinalysis and pelvic ultrasound all negative. Patient was reassured. Instructions given the patient to call her PCP regarding further workup for non gynecological causes of her pelvic pain and if the workup is negative and her pain persist to call back for further investigation. All questions answered, the patient verbalized understanding. Coding Level of Care Code Est Pt Level 3 (00237) Diagnoses Pelvic pain R10.2
== END 2022-10-05 11:28 | disposition home or self-care (01) ==
LOC: HO.HWS 09:58
PROVIDERS: PCP Nurse Practitioner Primary Care; Visit Provider Obstetrics & Gynecology
DX: R10.2 Pelvic and perineal pain (principal)
CPT/HCPCS: 99213

== ENCOUNTER → 2022-10-05 09:58 | Outpatient (BNVA) | payer MEDICAID, SELFPAY | PROVIDERS: PCP Nurse Practitioner Primary Care; Visit Provider Obstetrics & Gynecology | DX: R10.2 Pelvic and perineal pain (principal); E28.2 Polycystic ovarian syndrome | CPT/HCPCS: 99212 ==

== ENCOUNTER 2022-10-26 07:56 | Outpatient (REF) | payer MEDICAID, SELFPAY ==
--- NOTE | ~2022-10-26 | US_ITS ---
EXAMINATION: US ABDOMEN COMPLETE CLINICAL INFORMATION: Chronic abdominal pain. COMPARISON: Ultrasound abdomen complete 09/28/2015. TECHNIQUE: Real-time imaging of the abdominal viscera. FINDINGS: PANCREAS: Normal. ABDOMINAL AORTA: The proximal, mid, and distal segments are normal in caliber. INFERIOR VENA CAVA: Visualized portions are normal. LIVER: Normal. The liver is normal in size. The liver contour is normal. Parenchymal echogenicity is normal. No focal hepatic lesion. There is no intrahepatic biliary duct dilatation seen. GALLBLADDER: Surgically absent. COMMON BILE DUCT: Normal in caliber measuring 0.39 cm in diameter. RIGHT KIDNEY: Normal. No hydronephrosis. No renal calculi or focal parenchymal lesions. The kidney measures 10.9 cm in maximum dimension. LEFT KIDNEY: Normal. No hydronephrosis. No renal calculi or focal parenchymal lesions. The kidney measures 11.0 cm in maximum dimension. SPLEEN: Normal. The spleen measures 10.3 cm in maximum dimension. FREE FLUID: None. US/US abdomen complete IMPRESSION: Unremarkable abdominal ultrasound.
== END 2022-10-26 07:57 | disposition home or self-care (01) ==
LOC: HO.US 07:56
PROVIDERS: PCP Nurse Practitioner Primary Care; Visit Provider Nurse Practitioner Primary Care
DX: R10.9 Unspecified abdominal pain (principal)
CPT/HCPCS: 76700

== ENCOUNTER 2022-11-23 08:18 | Outpatient (REF) | payer MEDICAID, SELFPAY ==
[2022-11-24 11:38] LABS: BV Int Neg Control Negative (Negative); BV Int Pos Control Positive (Positive)
== END 2022-11-23 08:19 | disposition home or self-care (01) ==
LOC: HO.LNP 08:18
PROVIDERS: Visit Provider Obstetrics & Gynecology
DX: R10.2 Pelvic and perineal pain (principal); N76.0 Acute vaginitis; B96.89 Other specified bacterial agents as the cause of diseases classified elsewhere
CPT/HCPCS: 81002; 81025; 87480; 87510; 87660

== ENCOUNTER 2022-11-23 08:18 | Outpatient (AMB) | payer MEDICAID, SELFPAY ==
--- NOTE | 2022-11-23 08:27 | MHC.OFFVIS ---
Intake Vital Signs 11/23/22 08:29 Height 5 ft 3 in Weight 223 lb BMI 39.5 BP 118/72 Intake Visit Reasons: Annual Intake Note: c/o of vaginal odor Drill Press Hand Required: Yes Drill Press Hand Language: Circular Gang Saw Operator Name: Nisreen BURK Information Interpreted: non-clinical & clinical Mineral Resources Inspector: Mineral Resources Inspector Present (Nisreen BURK) Accompanied by: Self / Same As Patient Allergies No Known Allergies Allergy (Verified 11/23/22 08:30) Is last menstrual period known: Yes HPI HPI Comments History of Present Illness Details Presenting for annual exam. Complaining of bilateral lower pelvic pain started 2 months ago. It's intermittent in nature lasting few seconds and occurs few times a day. it is not associated with any constipation, no dysuria, no frequency or incontinence, no n/v, no feverishness. The patient is complaining of vaginal discharge associated with foul odor Last Pap/HPV was negative in 10/30 [facility] Medical History Multinodular thyroid Goiter Anemia PCOS (polycystic ovarian syndrome) Surgical History Hx of ultrasound guided needle biopsy Hx of cholecystectomy Hx of section Hx of tonsillectomy Family History Father Hypertension Mother Diabetes Maternal Grandmother Diabetes Paternal Grandfather Diabetes Cancer Paternal Grandmother Diabetes Arthritis of knee Social History Household Members: Children Housing: House Alcohol intake: never Patient Tobacco Use Status: Never used Tobacco Current occupational status: employed Current occupation: [employer] Sexual orientation: Straight/Heterosexual Gender identity: Female Female Reproductive History Menstrual Age of Menarche: 11 control method: condoms Total pregnancies: 1 Full term: 1 Number of Living Children: 1 Date of last pap smear: 11/02/20 Review of Systems Const All systems reviewed & are unremarkable except as noted in HPI and below Card Reports as per HPI Resp Reports as per HPI GI Reports as per HPI and Reports no additional complaints Reports as per HPI Physical Exam Vital Signs: BMI result Body Mass Index 39.5 Const General: cooperative, healthy appearing and comfortable Chest Chest palpation & inspection: normal inspection of the chest and normal palpation of entire chest wall Breast/axilla inspection: normal inspection of the breasts and normal inspection of the axillae Breast/axilla palpation: normal palpation of the breasts, normal palpation of the axillae and no axillary lymphadenopathy Resp Effort & Inspection: normal respiratory effort Auscultation: clear to auscultation bilaterally Percussion: percussion normal Cardio Palpation: normal PMI Rate: regular rate Rhythm: regular rhythm Heart sounds: no murmurs and no rubs Peripheral pulses: Peripheral pulses 2+ throughout GI Inspection: Yes normal to inspection Palpation (GI): Soft to palpation, nontender, no guarding, not rigid and No hepatosplenomegaly present Percussion: Yes normal to percussion Auscultation: normal bowel sounds Rectal Exam - Female: deferred General: Yes bladder normal to palpation External Female Exam: No lesion Speculum Exam - Vagina: normal appearance of the vagina, normal palpation, normal vaginal discharge and not erythematous Speculum Exam - Cervix: normal appearance of the cervix and normal palpation Bimanual exam- vagina & uterus: normal bimanual exam, normal palpation, uterine size normal, bladder normal to palpation, consistency normal and normal palpation Bimanual Exam- Adnexa, other: normal adnexae, no masses and no tenderness Assessment & Plan Assessment & Plan (1) Well woman exam: Code(s): Z01.419 - Encounter for gynecological examination (general) (routine) without abnormal findings Plan: Cotesting not indicated this year. Counseled the patient about the recommended dietary allowance of 1000 mg of Calcium & 600 IU of vitamin D. The patient was instructed to perform monthly self-breast exams and to schedule an annual exam in a year; All questions answered and the patient verbalized understanding. Instructed the patient to schedule annual exam in a year (2) Pelvic pain: Code(s): R10.2 - Pelvic and perineal pain Plan: Urine dip and test done in the office were both negative. GC and chlamydia taken and pelvic ultrasound ordered. Discussed with the patient the differential diagnosis of pelvic pain including but not limited to adnexal, uterine masses, pelvic infections (PID), GI the (Irritable bowel syndrome, diverticulitis, others), musculoskeletal, myofascial pain abdominal wall , adhesions, endometriosis, psychological and others causes. Will check results and treat accordingly. All questions answered, the patient verbalized understanding. Instructed the patient to schedule follow-up appointment in 2 weeks (3) Bacterial vaginosis: Code(s): N76.0 - Acute vaginitis; B96.89 - Other specified bacterial agents as the cause of diseases classified elsewhere Plan: GC and chlamydia cultures with BV panel taken. Per CDC recommendation, will screen for STI, HepBs Ag, HIV, RPR, Hep C Ab ordered. Will treat with Flagyl 500 mg p.o. b.i.d. x 7 days, Instructions given to the patient to refrain from sexual activity or to use condoms consistently and correctly during the BV treatment regimen, not to douch, it might increase the risk for relapse, and to call if symptoms persist or recur. Orders: Orders Hepatitis C Antibody Today Z20.2 - Contact with and (suspected) exposure to infections with a predominantly sexual mode of transmission Syphilis Screen Today Z20.2 - Contact with and (suspected) exposure to infections with a predominantly sexual mode of transmission Hepatitis B Surface Antigen Today Z20.2 - Contact with and (suspected) exposure to infections with a predominantly sexual mode of transmission HIV Ab/Ag Today Z20.2 - Contact with and (suspected) exposure to infections with a predominantly sexual mode of transmission US pelvic and transvaginal Today R10.2 - Pelvic and perineal pain Medications: New metronidazole 500 mg PO BID 14 tabs 0RF 7 days Coding Level of Care Code Est Pt Prev Care 18-39y(24529) Diagnoses Well woman exam Z01.419 Pelvic pain R10.2 Bacterial vaginosis N76.0; B96.89
[2022-11-23 08:29] VITALS: BP 118/72; BMI 39.5
== END 2022-11-23 08:56 | disposition home or self-care (01) ==
PROVIDERS: Visit Provider Obstetrics & Gynecology
DX: Z01.419 Encounter for gynecological examination (general) (routine) without abnormal findings (principal); R10.2 Pelvic and perineal pain; N76.0 Acute vaginitis; B96.89 Other specified bacterial agents as the cause of diseases classified elsewhere; Z32.02 Encounter for pregnancy test, result negative
CPT/HCPCS: 99395

== ENCOUNTER 2022-11-23 09:06 | Outpatient (REF) | payer MEDICAID, SELFPAY ==
[2022-11-23 10:46] LABS: HBsAGNum1 0.29 S/CO (0.00-0.99); HIV AB/AG Nonreactive (Nonreactive); HIV Num 1 0.05 S/CO (0.00-0.99); Hepatitis B Surface Antigen Negative (Negative); ~HepC Num1 0.08 S/CO (0.00-0.79); ~Hepatitis C Antibody Nonreactive (Nonreactive)
[2022-11-23 10:47] LABS: Syphilis Screen Nonreactive (Nonreactive)
[2022-11-24 09:53] LABS: CT PCR NOT DETECTED (Not Detect.); NG PCR NOT DETECTED (Not Detect.)
== END 2022-11-23 09:07 | disposition home or self-care (01) ==
LOC: HO.LAB 09:06
PROVIDERS: PCP Nurse Practitioner Primary Care; Visit Provider Obstetrics & Gynecology
DX: Z11.4 Encounter for screening for human immunodeficiency virus [HIV] (principal); Z20.2 Contact with and (suspected) exposure to infections with a predominantly sexual mode of transmission; N76.0 Acute vaginitis; B96.89 Other specified bacterial agents as the cause of diseases classified elsewhere
CPT/HCPCS: 0353U; 86780; 86803; 87340; 87389

== ENCOUNTER 2022-12-07 10:19 | Outpatient (AMB) | payer MEDICAID, SELFPAY ==
--- NOTE | 2022-12-07 10:20 | MHC.OFFVIS ---
Intake Vital Signs 12/07/22 10:22 Height 5 ft 3 in Weight 223 lb BMI 39.5 Intake Visit Reasons: SAP INTEGRATION ARCHITECT/HHC VV Intake Note: New pt here for VV bilateral but she says the ones on the right leg hurt more the the ones on the left. Also is concern about spider veins on both legs..She says she gets sweeling in legswhen she stands for a good amount of time Allergies No Known Allergies Allergy (Verified 12/07/22 10:23) HPI SAP INTEGRATION ARCHITECT/HHC VV HPI Details Very pleasant 32-year-old female patient presents for painful varicose veins. Complaints include pain over varicosities, swelling of lower extremities, cramping, fatigue, and heaviness of the lower extremities. It has been affecting there daily activities including walking and working as a supervisor dimension warehouse. It is noted more so in right leg. In particular notes significant spider telangiectasias throughout the leg in particular left calf Patient denies any previous venous surgery or injections. Patient denies any history of DVT/ PE. Patient denies any history of phlebitis. Trial of compression includes - [id number] They now present for vascular evaluation regarding their varicose veins. [facility] Medical History Multinodular thyroid Goiter Anemia PCOS (polycystic ovarian syndrome) Surgical History Hx of ultrasound guided needle biopsy Hx of cholecystectomy Hx of section Hx of tonsillectomy Family History Father Hypertension Mother Diabetes Maternal Grandmother Diabetes Paternal Grandfather Diabetes Cancer Paternal Grandmother Diabetes Arthritis of knee Social History Household Members: Children Housing: House Alcohol intake: never Patient Tobacco Use Status: Never used Tobacco Current occupational status: employed Current occupation: [employer] Sexual orientation: Straight/Heterosexual Gender identity: Female Female Reproductive History Menstrual Age of Menarche: 11 Review of Systems Const Reports as per HPI ENT Reports no additional complaints Card Denies chest pain, Denies chest pain at rest and Denies chest pain with activity Resp Denies chest congestion and Denies cough GI Reports no additional complaints Musc Details: pain over varicosities, aching of lower extremities, swelling, cramping, heaviness and tiredness, itching Denies abnormal gait Skin/Breast Reports pruritus and Denies wounds Neuro Reports no additional complaints and Denies abnormal gait Psych Denies no additional complaints Physical Exam Vital Signs: BMI result Body Mass Index 39.5 Const General: cooperative, healthy appearing and comfortable Orientation/consciousness: oriented to person, oriented to place and oriented to time Neck Carotids: no bruits Chest Chest palpation & inspection: normal inspection of the chest and normal palpation of entire chest wall Resp Effort & Inspection: normal respiratory effort and able to speak in complete sentences Cardio Rate: regular rate Heart sounds: S1 normal heart sound present and S2 normal heart sound present Peripheral pulses: Peripheral pulses 2+ throughout GI Inspection: Yes normal to inspection Skin Other: +2 edema, multiple spider telangiectasias General skin exam: dry skin Neuro General: oriented to person, oriented to place and oriented to time Extrem Right lower extremity: full ROM, normal capillary refill and edema Left lower extremity: full ROM, normal capillary refill and edema Psych Mental Status: mental status grossly normal Assessment & Plan Assessment & Plan (1) Varicose veins of right lower extremity with inflammation: Code(s): I83.11 - Varicose veins of right lower extremity with inflammation Plan: In short, the patient has evidence of venous insufficiency. I have discussed the pathophysiology with the patient. In addition I have provided informational material regarding venous disease to the patient. We have discussed conservative measures including compression, elevation, and exercise. I have also provided a handout regarding appropriate use of compression stockings and where to purchase good compression stockings as well. I have taken the liberty of ordering venous insufficiency testing with the patient. They will follow up with me after testing. The patient had an opportunity to ask questions regarding the treatment plan. All questions were answered. Imaging studies, laboratory studies and physical exam results were discussed and reviewed in detail. No major barriers to understanding were identified. The patient expressed understanding and agreement with the above treatment plan. The patient is aware they should contact our office by phone for worsening of the current condition or the appearance of new symptoms. Thank you for allowing me to participate in the vascular care of this patient. If you have any questions or concerns regarding the treatment for the above condition please do not hesitate to contact me. The office telephone contact is [phone]. This note is constructed using voice recognition software. While every effort has been made to ensure accuracy, immigration case manager errors may have been included. Thank you for allowing me to participate in the care of your patient. Yours sincerely, Dennis Lacey MD, FACS, R.P.V.I. Orders: Orders US venous duplex LE BI 1 Week I83.11 - Varicose veins of right lower extremity with inflammation Coding Level of Care Code New Pt Level 4 (18521) Diagnoses Varicose veins of right lower extremity with inflammation I83.11
[2022-12-07 10:22] VITALS: BMI 39.5
== END 2022-12-07 10:43 | disposition home or self-care (01) ==
PROVIDERS: PCP Nurse Practitioner Primary Care; Visit Provider Surgery Vascular Surgery
DX: I83.11 Varicose veins of right lower extremity with inflammation (principal)
CPT/HCPCS: 99203

== ENCOUNTER → 2022-12-07 10:19 | Outpatient (BNVA) | payer MEDICAID, SELFPAY | PROVIDERS: PCP Nurse Practitioner Primary Care; Visit Provider Surgery Vascular Surgery ==

== ENCOUNTER 2022-12-08 15:07 | Outpatient (REF) | payer MEDICAID, SELFPAY ==
[2022-12-08 17:25] LABS: MANUAL DIFF FLAG NO
[2022-12-08 17:41] LABS: Estimated Average Glucose 103 mg/dL; Hemoglobin A1c % 5.2 % (<6.0)
[2022-12-08 17:42] LABS: Alanine Aminotransferase 15 U/L (0-31); Albumin Level 4.1 g/dL (3.5-5.0); Alkaline Phosphatase 62 U/L (39-117); Anion Gap 13 (12-20); Aspartate Amino Transferase 18 U/L (5-31); Bilirubin Total 0.5 mg/dL (0.0-1.0); Blood Urea Nitrogen 12 mg/dL (9-16); Calcium 9.8 mg/dL (8.4-10.2); Carbon Dioxide 25 mmol/L (22-29); Chloride 105 mmol/L (96-108); Estimated Glomerular Filt Rate > 60; Glucose Random 81 mg/dL (60-115); Potassium 4.3 mmol/L (3.3-5.1); Sodium 139 mmol/L (135-145); Total Protein 7.3 g/dL (6.5-8.0)
[2022-12-08 17:50] LABS: Basophils Percent Auto 0.5 % (0-2); Eosinophils Absolute Auto 0.2 X10*3/uL (0.0-0.4); Eosinophils Percent Auto 1.8 % (0-4); Hematocrit 43.4 % (37.0-47.0); Hemoglobin 13.8 g/dl (12.0-16.0); Imm Gran Abs Auto 0.05 X10*3/uL (0.00-0.03); Imm Gran Pct Auto 0.6 % (0.0-0.4); Lymphocytes Absolute Auto 2.7 X10*3/uL (1.2-4.9); Lymphocytes Percent Auto 31.5 % (20-40); Mean Corpuscular HGB Conc 31.8 g/dl (31.0-35.0); Mean Corpuscular Hemoglobin 24.8 pg (27.0-33.0); Mean Corpuscular Volume 77.9 fL (80.0-98.0); Mean Platelet Volume 10.7 fL (9.4-12.3); Monocytes Absolute Auto 0.7 X10*3/uL (0.1-1.2); Neutrophils Absolute Auto 4.9 x10*3/uL (2.0-8.3); Neutrophils Percent Auto 57.6 % (45-73); Platelet Count 364 X10*3/uL (160-400); Red Blood Count 5.57 X10*6/uL (4.20-5.50); Red Cell Distribution Width 15.5 % (11.0-16.0); White Blood Count 8.5 X10*3/uL (4.8-10.8)
== END 2022-12-08 15:08 | disposition home or self-care (01) ==
LOC: HO.HHCL 15:07
PROVIDERS: Visit Provider Nurse Practitioner Primary Care
DX: R10.32 Left lower quadrant pain (principal); R42 Dizziness and giddiness
CPT/HCPCS: 36415; 80053; 83036; 85014; 85018; 85025

== ENCOUNTER 2022-12-22 13:00 | Outpatient (REF) | payer MEDICAID, SELFPAY ==
--- NOTE | ~2022-12-22 | US_ITS ---
EXAMINATION: US LOWER EXTREMITY VENOUS (REFLUX EXAM), BILATERAL CLINICAL INDICATION: Varicose veins of the right lower extremity COMPARISON: None. TECHNIQUE: Color flow triplex imaging and compression Doppler was performed to evaluate both the deep and the superficial systems bilaterally. To evaluate the superficial system, the examination was performed in the upright position. Color-flow Doppler ultrasound and compression ultrasound were utilized. In addition, maneuvers were utilized to demonstrate reflux. FINDINGS: RIGHT: 1. DEEP VENOUS ULTRASOUND OF THE RIGHT LOWER EXTREMITY: Common Femoral Vein: Compressible, normal respiratory variation and augmented flow. Popliteal Vein: Compressible, normal augmentation. Deep Venous Reflux: There is no evidence of reflux in the deep system in either the common femoral vein or the popliteal vein. There is no evidence of a Gamble's cyst. 2. SUPERFICIAL ULTRASOUND WITH DOPPLER OF RIGHT LOWER EXTREMITY: RIGHT GREAT SAPHENOUS VEIN: Saphenofemoral Junction: 2 mm. No reflux. Proximal Thigh: 2 mm. No reflux. Mid Thigh: 3 mm. No reflux. Above Knee: 2 mm. No reflux. Below Knee: 2 mm. No reflux. Mid Calf: 1 mm. No reflux. Ankle: 2 mm. No reflux. DUPLICATED GREAT SAPHENOUS VEIN: Yes, laterally. Saphenofemoral junction: 2 mm. No reflux Mid thigh: 2 mm. No reflux. RIGHT SMALL SAPHENOUS VEIN: Proximal: 2 mm. No reflux. Mid: 2 mm. 210 ms of reflux. Distal: 2 mm. No reflux. PERFORATORS: Present at the mid calf measuring 2 mm. LEFT: 1. DEEP VENOUS ULTRASOUND OF THE LEFT LOWER EXTREMITY: Common Femoral Vein: Compressible, normal respiratory variation and augmented flow. Popliteal Vein: Compressible, normal augmentation. Deep Venous Reflux: There is no evidence of reflux in the deep system in either the common femoral vein or the popliteal vein. There is no evidence of a Gamble's cyst. 2. SUPERFICIAL ULTRASOUND WITH DOPPLER OF LEFT LOWER EXTREMITY: LEFT GREAT SAPHENOUS VEIN: Saphenofemoral Junction: 4 mm. No reflux. Proximal Thigh: 3 mm. No reflux. Mid Thigh: 2 mm. No reflux. Above Knee: 2 mm. No reflux. Below Knee: 1 mm. No reflux. Mid Calf: 1 mm. No reflux. Ankle: 1 mm. No reflux. DUPLICATED GREAT SAPHENOUS VEIN: Yes, laterally. Saphenofemoral junction: 2 mm. No reflux LEFT SMALL SAPHENOUS VEIN: Proximal: 2 mm. No reflux. Distal: 1 mm. No reflux. PERFORATORS: Present at the mid calf measuring 2 mm. US/US venous duplex LE BI IMPRESSION: 1. Small short segment abnormal superficial venous reflux within the small saphenous vein at the level of the mid calf. 2. No evidence of DVT. Abnormal lower extremity venous reflux times: Superficial and deep calf veins: >500 ms Femoropopliteal veins: >1000 ms Perforating veins: >350 ms Lablin N, Issa J, Dev L, Rob AK, Armani SS, Sofie Barrera M, Mavis WH. Definition of venous reflux in lower-extremity veins.J Vasc Surg. 2003; [phone].
--- NOTE | ~2022-12-22 | US_ITS ---
EXAMINATION: US PELVIS CLINICAL INFORMATION: Pelvic and perineal pain. Last menstrual period 11/29/2022. COMPARISON: 09/05/2022. TECHNIQUE: Ultrasound of the pelvis is performed using both transabdominal and transvaginal transducers along with Doppler. Transvaginal imaging is performed due to inadequate visualization transabdominally. FINDINGS: The uterus is anteverted and measures 12.9 x 4.7 x 5.7 cm. No discrete fibroids identified. Endometrium is echogenic with thickness of 1.5 cm. Limited visualization of uterus, endometrium and bilateral ovaries due to bowel gas and uterine positioning. Right ovary measures 2.0 x 1.3 x 1.7 cm, volume 2.3 mL. Left ovary measures 1.6 x 2.1 x 2.4 cm, volume 4.2 mL. Bilateral ovaries are grossly unremarkable, allowing for limited visualization. US/US pelvic and transvaginal IMPRESSION: 1. No discrete fibroids. 2. Endometrial thickness is 1.5 cm. 3. Limited visualization due to bowel gas and uterine positioning.
== END 2022-12-22 13:01 | disposition home or self-care (01) ==
LOC: HO.US 13:00
PROVIDERS: PCP Nurse Practitioner Primary Care; Visit Provider Surgery Vascular Surgery
DX: R10.2 Pelvic and perineal pain (principal); I83.11 Varicose veins of right lower extremity with inflammation
CPT/HCPCS: 76830; 76856; 93970

== ENCOUNTER 2023-02-08 10:58 | Outpatient (AMB) | payer MEDICAID, SELFPAY ==
--- NOTE | 2023-02-08 11:06 | A.OFFVIS_ITS ---
Intake Intake Visit Reasons: FU US Intake Note: pthere for fu US on 12/22/22 pt states that her legs are doing ok she gets bruising once in a while but shes doing ok. she state states that she is using the compression stockings and they are helping Drum Barker Operator Required: Yes Drum Barker Operator Name: lety ibrahim Allergies No Known Allergies Allergy (Verified 02/08/23 11:07) HPI FU US HPI Details Very pleasant 32-year-old female presents for follow-up regarding venous insufficiency. She is concerned about some superficial varicosities mostly spider telangiectasias. She does have some bulging varicosities in the lateral aspect of her right thigh. Overall no other significant complaints. She now presents for follow-up with venous insufficiency testing. [facility] Medical History Multinodular thyroid Goiter Anemia PCOS (polycystic ovarian syndrome) Surgical History Hx of ultrasound guided needle biopsy Hx of cholecystectomy Hx of section Hx of tonsillectomy Family History Father Hypertension Mother Diabetes Maternal Grandmother Diabetes Paternal Grandfather Diabetes Cancer Paternal Grandmother Diabetes Arthritis of knee Social History Household Members: Children Housing: House Alcohol intake: never Patient Tobacco Use Status: Never used Tobacco Current occupational status: employed Current occupation: [employer] Sexual orientation: Straight/Heterosexual Gender identity: Female Female Reproductive History Menstrual Age of Menarche: 11 Review of Systems Const All systems reviewed & are unremarkable except as noted in HPI and below Reports no additional complaints ENT Reports Normal hearing present Card Denies chest pain, Denies chest pain at rest, Denies chest pain with activity and Denies pedal edema Resp Denies cough GI Denies abdominal pain Musc Denies abnormal gait, Denies muscle cramps and Denies radiating pain into limb Skin/Breast Denies skin ulcer and Denies wounds Neuro Reports Normal hearing present and Denies abnormal gait Psych Reports no additional complaints Physical Exam Const General: cooperative, healthy appearing and comfortable Orientation/consciousness: oriented to person, oriented to place and oriented to time HEENT Head: Yes normal to inspection Neck Neck: Yes normal visual inspection Carotids: no bruits Chest Chest palpation & inspection: normal inspection of the chest Resp Effort & Inspection: normal respiratory effort and able to speak in complete sentences Auscultation: clear to auscultation bilaterally, no crackles, no rales, no rhonchi and no wheezes Cardio Rate: regular rate Rhythm: regular rhythm Heart sounds: S1 normal heart sound present and S2 normal heart sound present Bruits: no carotid bruits Peripheral pulses: Peripheral pulses 2+ throughout GI Inspection: Yes normal to inspection Skin Wounds: no wounds Hair: normal Neuro General: oriented to person, oriented to place and oriented to time Cranial nerves: Yes CN's II-XII intact bilaterally and Yes Normal hearing present Cognition (Neuro): normal cognition Motor exam (neuro): 5/5 motor strength present throughout Extrem Other: venous exam: +1 edema, right lateral thigh varicosity multiple spider telangiectasias General: No clubbing, No cyanosis and No edema Psych Appearance: grossly normal Mental Status: mental status grossly normal Speech and movement: Normal speech and movement present Results Reviewed Results Reviewed: Brief summary of venous insufficiency testing is as follows: right great saphenous vein: negative right small saphenous vein: negative right accessory vein: none present left great saphenous vein: negative left small saphenous vein: negative left accessory vein: none present Please note there is no evidence of any venous aneurysms or significant tortuosity Assessment & Plan Assessment & Plan (1) Varicose veins of right lower extremity with inflammation: Code(s): I83.11 - Varicose veins of right lower extremity with inflammation Plan: In short patient is negative for any significant venous insufficiency. She does have some lateral thigh varicosities where we could do some microphlebectomy to assist with the discomfort. She has elected to manage this conservatively at the current time. We did discuss routine conservative measures including compression elevation and exercise. Should they become an issue in the future happy to see her back. Thank you for allowing us to assist in her care. If there are questions or concerns please do not hesitate to contact us. Coding Level of Care Code Est Pt Level 4 (60836) Diagnoses Varicose veins of right lower extremity with inflammation I83.11
== END 2023-02-08 11:32 | disposition home or self-care (01) ==
PROVIDERS: PCP Nurse Practitioner Primary Care; Visit Provider Surgery Vascular Surgery
DX: I83.11 Varicose veins of right lower extremity with inflammation (principal)
CPT/HCPCS: 99214

== ENCOUNTER → 2023-02-08 11:00 | Outpatient (BNVA) | payer MEDICAID, SELFPAY | PROVIDERS: PCP Nurse Practitioner Primary Care; Visit Provider Surgery Vascular Surgery | DX: R10.2 Pelvic and perineal pain (principal); I83.11 Varicose veins of right lower extremity with inflammation | CPT/HCPCS: 99212 ==

== ENCOUNTER 2023-02-08 11:45 | Outpatient (AMB) | payer MEDICAID, SELFPAY ==
[2023-02-08 12:14] VITALS: BP 122/72; BMI 39.4
--- NOTE | 2023-02-08 12:14 | MHC.OFFVIS ---
Intake Vital Signs 02/08/23 12:14 Height 5 ft 3 in Weight 222 lb 10.67 oz BMI 39.4 BP 122/72 Intake Visit Reasons: Ultrasound Follow up Chief Informatics Officer Required: Yes Chief Informatics Officer Language: Procedure Rn Name: Nisreen BURK Information Interpreted: non-clinical & clinical Accompanied by: Self / Same As Patient Allergies No Known Allergies Allergy (Verified 02/08/23 12:15) HPI HPI Comments History of Present Illness Details Presenting for follow-up regarding pelvic pain. Urine dip in test done in the office last visit were negative. GC/chlamydia were post negative. STD screen was negative Pelvic ultrasound showed the following: The uterus is anteverted and measures 12.9 x 4.7 x 5.7 cm. No discrete fibroids identified. Endometrium is echogenic with thickness of 1.5 cm. Limited visualization of uterus, endometrium and bilateral ovaries due to bowel gas and uterine positioning. Right ovary measures 2.0 x 1.3 x 1.7 cm, volume 2.3 mL. Left ovary measures 1.6 x 2.1 x 2.4 cm, volume 4.2 mL. Bilateral ovaries are grossly unremarkable, allowing for limited visualization Since then the patient pelvic pain has resolved completely with no additional concerns PFSH Medical History Multinodular thyroid Goiter Anemia PCOS (polycystic ovarian syndrome) Surgical History Hx of ultrasound guided needle biopsy Hx of cholecystectomy Hx of section Hx of tonsillectomy Family History Father Hypertension Mother Diabetes Maternal Grandmother Diabetes Paternal Grandfather Diabetes Cancer Paternal Grandmother Diabetes Arthritis of knee Social History Household Members: Children Housing: House Alcohol intake: never Patient Tobacco Use Status: Never used Tobacco Current occupational status: employed Current occupation: [employer] Sexual orientation: Straight/Heterosexual Gender identity: Female Female Reproductive History Menstrual Age of Menarche: 11 Review of Systems Const All systems reviewed & are unremarkable except as noted in HPI and below Reports as per HPI and Reports no additional complaints GI Reports no additional complaints Reports no additional complaints Physical Exam Vital Signs: Last Vital Signs BP 122/72 02/08/23 12:14 BMI result Body Mass Index 39.4 Assessment & Plan Assessment & Plan (1) Pelvic pain: Code(s): R10.2 - Pelvic and perineal pain Plan: Discussed with the patient the results the workup done for pelvic pain including GC/chlamydia, urine dip in test or negative. In addition, discussed with the patient the finding on pelvic ultrasound. Recommended to the patient in case her pain recurs to contact her PCP for further workup and if pelvic pain persists and the PCP workup is negative to call back our office for further management. All questions answered, the patient verbalized understanding Coding Level of Care Code Est Pt Level 3 (81085) Diagnoses Pelvic pain R10.2
== END 2023-02-08 12:34 | disposition home or self-care (01) ==
PROVIDERS: PCP Nurse Practitioner Primary Care; Visit Provider Obstetrics & Gynecology
DX: R10.2 Pelvic and perineal pain (principal)
CPT/HCPCS: 99213

== ENCOUNTER 2023-04-13 15:54 | Outpatient (REF) | payer MEDICAID, SELFPAY ==
--- NOTE | ~2023-04-13 | US_ITS ---
EXAMINATION: US THYROID CLINICAL INFORMATION: Nontoxic multinodular goiter. Previous history of previous left biopsy on 05/04/2022. COMPARISON: Thyroid ultrasound 02/17/2022. Ultrasound-guided thyroid biopsy 05/04/2022, images only. TECHNIQUE: Linear transducer grayscale and color Doppler examination with attention to the region of the thyroid. FINDINGS: SIZE: Measurements of the thyroid lobes and nodules are given in sagittal, anteroposterior and transverse dimensions respectively. Right Thyroid Lobe: 4.7 x 1.5 x 1.4 cm, volume 5.2 mL. Previously 4.9 x 1.6 x 1.5 cm, volume 6.3 mL. Parenchyma: The gland echotexture is heterogeneous. Thyroid vascularity is normal. Left Thyroid Lobe: 4.7 x 1.1 x 1.4 cm, volume 3.8 mL. Previously 4.8 x 1.7 x 1.6 cm, volume 6.8 mL. Parenchyma: The gland echotexture is heterogeneous. Thyroid vascularity is normal. Isthmus: 0.3 cm in maximum AP dimension. Previously 0.2 cm. Estimated total number of nodules greater than or equal to 1 cm: 4. Felt Hat Pouncing Operator Hand nodules are described as follows: 1. Location: Right mid pole. Size: 2.3 x 1.0 x 1.3 cm, volume 1.6 mL. Previously: 1.2 x 2.2 x 1.2 cm, volume 1.6 mL. Nodule characteristics: Composition: Solid/almost completely solid (2). Echogenicity: Hypoechoic (2). Shape: Not taller than wide (0). Margins: Ill-defined (0). Echogenic Foci: None (0). ACR TI-RADS total points: 4 Previous: 6 ACR TI-RADS category: 4 Previous: 4 Significant change in size (>/= 20% in 2 dimensions and minimal increase of 2 mm or 50% or greater increase in volume): No Change in features: No Change in ACR TI-RADS risk category: No 2. Location: Right lower pole. Size: 1.2 x 0.5 x 0.5 cm, volume 0.2 mL. Previously: 0.7 x 0.5 x 0.6 cm, volume 0.1 mL. Nodule characteristics: Composition: Solid (2). Echogenicity: Isoechoic (1). Shape: Not taller than wide (0). Margins: Ill-defined (0). Echogenic Foci: None (0). ACR TI-RADS total points: 3 Previous: 4 ACR TI-RADS category: 3 Previous: 4 Significant change in size (>/= 20% in 2 dimensions and minimal increase of 2 mm or 50% or greater increase in volume): No Change in features: No Change in ACR TI-RADS risk category: TI RADS 4 to TI RADS 3 3. Location: Left upper pole. Size: 1.1 x 0.6 x 0.6 cm, volume 0.2 mL. Previously: 0.9 x 0.5 x 0.7 cm, volume 0.2 mL. Nodule characteristics: Composition: Solid (2). Echogenicity: Isoechoic (1). Shape: Not taller than wide (0). Margins: Smooth (0). Echogenic Foci: None (0). ACR TI-RADS total points: 3 Previous: 4 ACR TI-RADS category: 3 Previous: 4 Significant change in size (>/= 20% in 2 dimensions and minimal increase of 2 mm or 50% or greater increase in volume): No Change in features: No Change in ACR TI-RADS risk category: TI RADS 4 to TI RADS 3 4. Location: Left mid pole. Size: 0.6 x 0.6 x 0.9 cm, volume 0.2 mL. Previously: 1.1 x 0.8 x 1.0 cm, volume 0.4 mL. Nodule characteristics: Composition: Solid (2). Echogenicity: Hypoechoic (2). Shape: Not taller than wide (0). Margins: Ill-defined (0). Echogenic Foci: None (0). ACR TI-RADS total points: 4 Previous: 3 ACR TI-RADS category: 4 Previous: 3 Significant change in size (>/= 20% in 2 dimensions and minimal increase of 2 mm or 50% or greater increase in volume): No Change in features: More solid appearing. Kidneys. Change in ACR TI-RADS risk category: BI-RADS 3 to TI RADS 4 5. Location: Left lower pole. Size: 1.5 x 0.5 x 1.7 cm, volume 0.7 mL. Previously: 1.7 x 0.8 x 0.7 cm, volume 0.5 mL. Nodule characteristics: Composition: Solid/almost completely solid (2). Echogenicity: Hypoechoic (2). Shape: Not taller than wide (0). Margins: Ill-defined (0). Echogenic Foci: Macrocalcifications (1). ACR TI-RADS total points: 5 Previous: 5 ACR TI-RADS category: 4 Previous: 4 Significant change in size (>/= 20% in 2 dimensions and minimal increase of 2 mm or 50% or greater increase in volume): No Change in features: No Change in ACR TI-RADS risk category: No NODES: No lymphadenopathy is seen in the tissue surrounding the thyroid gland. US/US thyroid IMPRESSION: Heterogeneous thyroid with multiple nodules including 2.3 cm right midpole TI RADS 4 nodule for which fine-needle aspiration recommended. No significant change 1.5 cm left lower pole TI RADS 4 nodule which underwent previous biopsy of February 2023. Pathology results have not been provided. ACR TI-RADS RECOMMENDATION REFERENCE: Ultrasound-guided fine-needle aspiration, follow up ultrasound, no further followup. * TR1 (0 point) and TR2 (2 points): No FNA or followup * TR3 (3 points): FNA if more than or equal to 2.5 cm in maximum dimension, follow up ultrasound in 1, 3 and 5 years if 1.5 to 2.4 cm in maximum dimension. * TR4 (4-6 points): FNA if more than or equal to 1.5 cm in maximum dimension, follow up ultrasound in 1, 2, 3 and 5 years if 1 to 1.4 cm in maximum dimension. * TR5 (more than or equal to 7 points): FNA if more than or equal to 1 cm in maximum dimension, follow up ultrasound every year for 5 years if 0.5 to 0.9 cm in maximum dimension. * TR3, TR4 or TR5 nodules that are below the size threshold for follow up receive no followup.
== END 2023-04-13 15:55 | disposition home or self-care (01) ==
LOC: HO.US 15:54
PROVIDERS: PCP Nurse Practitioner Primary Care; Visit Provider Internal Medicine Endocrinology, Diabetes & Metabolism
DX: E04.2 Nontoxic multinodular goiter (principal)
CPT/HCPCS: 76536

== ENCOUNTER 2023-06-01 11:42 | Outpatient (REF) | payer MEDICAID, SELFPAY ==
[2023-06-02 14:38] LABS: H Pylori Breath Test Negative (Negative)
== END 2023-06-01 11:43 | disposition home or self-care (01) ==
LOC: HO.LNP 11:42
PROVIDERS: PCP Nurse Practitioner Primary Care; Visit Provider Nurse Practitioner Family
DX: K21.9 Gastro-esophageal reflux disease without esophagitis (principal); R10.9 Unspecified abdominal pain; G89.29 Other chronic pain; R10.13 Epigastric pain; R14.0 Abdominal distension (gaseous); E55.9 Vitamin D deficiency, unspecified; I25.10 Atherosclerotic heart disease of native coronary artery without angina pectoris; K59.00 Constipation, unspecified; R74.01 Elevation of levels of liver transaminase levels; Z90.49 Acquired absence of other specified parts of digestive tract
CPT/HCPCS: 83013; 99212

== ENCOUNTER 2023-06-01 11:42 | Outpatient (AMB) | payer MEDICAID, SELFPAY ==
--- NOTE | 2023-06-01 11:47 | A.OFFVIS_ITS ---
Intake Vital Signs 06/01/23 11:49 Height 5 ft 3 in Weight 215 lb BMI 38.1 BP 114/55 L Blood Pressure Location Lt brachial Position Sitting Pulse 74 Intake Visit Reasons: Chronic abdominal pain Intake Note: Patient new consult for abdominal pain Patient cc: abdominal pain with bloating, acid reflex with burning sensation and pressure, and denies any other GI issues. Custom Ski Maker Required: Yes Custom Ski Maker Name: [facility] Interpeter Accompanied by: Self / Same As Patient Allergies No Known Allergies Allergy (Verified 06/01/23 11:46) HPI Chronic abdominal pain HPI Details 32-year-old female with past medical his tory of multinodular thyroid, goiter, dysmenorrhea, DUB, PCOS is here today for initial consultation. Patient was sent to us by her PCP. Patient was referred to us for abdominal pain that has been going on for almost a year. Patient reports worsening epigastric pain postprandially with postprandial abdominal bloating. Patient is not on any PPI. Denies any nausea or vomiting. Reports that almost anything that she eats is making her to feel that way. Patient reports dyspepsia without dysphagia or odynophagia. Patient admits to having constipation. Patient moves her bowels every few days. Patient is trying to eat vegetables and fruits. Tries to avoid fast food restaurants, greasy or fried. Symptoms worse when she eats fast food. Patient denies melena, hematochezia, unintentional weight loss or ribbon like stools. Patient is status post cholecystectomy. Sees Dr. Carranza for PCOS. Patient has multinodular thyroid and sees endocrinology. Her last TSH was normal in July of 2022. Patient is due to go for blood work, will add to labs today. [facility] Medical History Multinodular thyroid Goiter Anemia PCOS (polycystic ovarian syndrome) Surgical History Hx of ultrasound guided needle biopsy Hx of cholecystectomy Hx of section Hx of tonsillectomy Family History Father Hypertension Mother Diabetes Maternal Grandmother Diabetes Paternal Grandfather Diabetes Cancer Paternal Grandmother Diabetes Arthritis of knee Social History Household Members: Children Housing: House Alcohol intake: never Patient Tobacco Use Status: Never used Tobacco Current occupational status: employed Current occupation: [employer] Sexual orientation: Straight/Heterosexual Gender identity: Female Female Reproductive History Menstrual Age of Menarche: 11 Review of Systems Const Denies weight gain and Denies weight loss ENT Reports no additional complaints, Denies dysphagia and Denies odynophagia Card Reports no additional complaints Resp Reports no additional complaints GI Reports abdominal pain (Epigastric ), Denies belching, Denies melena, Reports bloating, Reports constipation, Denies dysphagia, Denies excessive flatus, Denies dyspepsia, Reports heartburn, Denies diarrhea, Denies loose stools, Denies nausea, Denies odynophagia and Denies vomiting Reports no additional complaints Musc Reports no additional complaints Neuro Reports no additional complaints Psych Reports no additional complaints Endo Reports no additional complaints Physical Exam Vital Signs: Last Vital Signs Pulse 74 06/01/23 11:49 BP 114/55 L 06/01/23 11:49 BMI result Body Mass Index 38.1 Const General: healthy appearing, no acute distress and well developed Orientation/consciousness: patient oriented x3 Resp Effort & Inspection: normal respiratory effort, able to speak in complete sentences, no tracheal deviation and symmetric chest movement Auscultation: clear to auscultation bilaterally Cardio Rate: regular rate GI Inspection: Yes normal to inspection, No distended and Yes obesity Palpation (GI): Soft to palpation, not firm, nontender and No hepatosplenomegaly present Auscultation: normal bowel sounds General: Yes no CVA tenderness Back/Spine/Pelvis Back: no CVA tenderness Skin General skin exam: elasticity normal, turgor normal and dry skin Neuro General: patient oriented x3 Psych Appearance: grossly normal Mental Status: mental status grossly normal Affect: normal affect Assessment & Plan Assessment & Plan (1) Postprandial epigastric pain: Code(s): R10.13 - Epigastric pain (2) History of cholecystectomy: Code(s): Z90.49 - Acquired absence of other specified parts of digestive tract (3) GERD (gastroesophageal reflux disease): Code(s): K21.9 - Gastro-esophageal reflux disease without esophagitis Qualifiers: Esophagitis presence: esophagitis presence not specified Qualified Code(s): K21.9 - Gastro-esophageal reflux disease without esophagitis (4) Postprandial abdominal bloating: Code(s): R14.0 - Abdominal distension (gaseous) Plan Patient will be started on small dose of omeprazole. Discussed with patient avoiding dietary triggers and late night snacking. Will check for H pylori and treat empirically if positive. Will rule out celiac, pancreatitis. Will check liver profile, lipid panel. Will check thyroid. Patient will also start taking Senokot to help her move her bowels better. She will call the office in couple weeks if her symptoms will continue. Discussed with patient also low FODMAP diet. Food recommended as well as food to avoid discussed with patient. List provided to patient. I will see her in 6 weeks, sooner on as needed basis. Patient is agreeable to this plan and verbalizes understanding of instructions. She was given the opportunity to ask questions and all questions answered. Thank you for allowing me to participate in her care Orders: Orders H Pylori Breath Test Today K21.9 - Gastro-esophageal reflux disease without esophagitis Transglutaminase Ab IgG Today R10.9 - Unspecified abdominal pain Vitamin D 25-OH (D2 and D3) Today E55.9 - Vitamin D deficiency, unspecified Lipid Panel Today I25.10 - Atherosclerotic heart disease of [place] coronary artery without angina pectoris Transglutaminase IgA Today R10.9 - Unspecified abdominal pain Lipase Today R10.9 - Unspecified abdominal pain TSH reflex Free T4 Today K59.00 - Constipation, unspecified Liver Panel Today R74.01 - Elevation of levels of liver transaminase levels Medications: New omeprazole 20 mg PO DAILY 30 caps 3RF K21.9 - Gastro-esophageal reflux disease without esophagitis sennosides (Natural Senna Laxative) 17.2 mg (2 x 8.6 mg) PO BEDTIME 60 tabs 1RF constipation K59.00 - Constipation, unspecified Discontinued cyclobenzaprine Avoid driving after taking this medication Discontinued Reason: Patient no longer taking 10 mg PO TID PRN 7 tabs 0RF muscle spasm metronidazole Discontinued Reason: Patient no longer taking 500 mg PO BID 7 days 14 tabs 0RF Coding Level of Care Code New Pt Level 4 (92128) Diagnoses Postprandial epigastric pain R10.13 History of cholecystectomy Z90.49 Gastroesophageal reflux disease, unspecified whether esophagitis present K21.9 Esophagitis presence: esophagitis presence not specified Postprandial abdominal bloating R14.0 Time Spent (min) 45 Comment 30 minutes spent with patient and additional 15 minutes spent reviewing her records
[2023-06-01 11:49] VITALS: BP 114/55; PULSE 74; BMI 38.1
== END 2023-06-01 12:48 | disposition home or self-care (01) ==
PROVIDERS: PCP Nurse Practitioner Primary Care; Visit Provider Nurse Practitioner Family
DX: R10.13 Epigastric pain (principal); Z90.49 Acquired absence of other specified parts of digestive tract; K21.9 Gastro-esophageal reflux disease without esophagitis; R14.0 Abdominal distension (gaseous)
CPT/HCPCS: 99204

== ENCOUNTER 2023-06-15 10:22 | Outpatient (REF) | payer MEDICAID, SELFPAY ==
[2023-06-15 13:08] LABS: Alanine Aminotransferase 10 U/L (0-31); Albumin Level 3.9 g/dL (3.5-5.0); Alkaline Phosphatase 68 U/L (39-117); Aspartate Amino Transferase 13 U/L (5-31); Bilirubin Direct 0.2 mg/dL (0.0-0.5); Bilirubin Total 0.4 mg/dL (0.0-1.0); Cholesterol 178 mg/dL (<200); HDL Cholesterol 73 mg/dL (>40); LDL Cholesterol Calculated 96 mg/dL (<100); Lipase 15 U/L (8-78); Total Protein 7.2 g/dL (6.5-8.0); Triglycerides 46 mg/dL (<150)
[2023-06-15 13:12] LABS: TSH reflex Free T4 1.55 uIU/mL (0.32-4.0)
[2023-06-19 12:04] LABS: Vitamin D 25-OH, D2 <4 ng/mL; Vitamin D 25-OH, D3 16 ng/mL; Vitamin D 25-OH, Total 16 ng/mL (30-100)
[2023-06-19 13:33] LABS: Transglutaminase Ab IgG <1.0 U/mL; Transglutaminase IgA <1.0 U/mL
== END 2023-06-15 10:23 | disposition home or self-care (01) ==
LOC: HO.LAB 10:22
PROVIDERS: PCP Nurse Practitioner Primary Care; Visit Provider Nurse Practitioner Family
DX: R10.9 Unspecified abdominal pain (principal); K59.00 Constipation, unspecified; E55.9 Vitamin D deficiency, unspecified; I25.10 Atherosclerotic heart disease of native coronary artery without angina pectoris; R74.01 Elevation of levels of liver transaminase levels
CPT/HCPCS: 36415; 80061; 80076; 82306; 83690; 84443; 86364

== ENCOUNTER 2023-06-21 16:15 | Outpatient (AMB) | payer MEDICAID, SELFPAY ==
--- NOTE | 2023-06-21 16:16 | A.OFFVIS_ITS ---
Intake Vital Signs 06/21/23 16:17 Height 5 ft 3 in Weight 229 lb 11.547 oz BMI 40.7 BP 110/74 Blood Pressure Location Lt brachial Position Sitting Pulse 85 Pulse Source Pulse Oximeter Intake Visit Reasons: F/U NTMNG,PCOS-confirmed Intake Note: Patient presents today for NTMNG and PCOS follow up visit. Mercury Cracking Tester Required: Yes Mercury Cracking Tester Language: Offset Second Press Operator Name: JOSSY Han Accompanied by: Son Allergies No Known Allergies Allergy (Verified 06/21/23 16:22) HPI HPI Comments History of Present Illness Details 32 YO Female with PMHx Asthma who is seen in F/U for PCOS/Oligomenorrhea and a NTMNG. The patient last saw Dr. Gregory on 08/03/2022 1) PCOS: Menarche was age 11. Menses were regular initially, but have become irregular for 6 years after having her son. She reports gaining approximately 50 lbs with her son, and has since had irregular menses. She skips some months, not having menses for up to 3 months at a time. Sometimes heavy, sometimes very light. She also reported some hirsutism and difficulty conceiving. At her initial visit we completed a full panel including assessing for hyperandrogenism from ovarian and adrenal source. Workup was completely WNL. She did have labs concerning for adrenal insufficiency but underwent cosyntropin stim testing which was WNL. She was started on Metformin 500 mg PO BID, and since that time has had regular monthly menses. She stopped the Metformin of her own accord, but reports menses remain regular. She was also referred to the bariatric weight management program, and only attended the orientation session. We reviewed using [employer] to track calories and limiting calories to 1500 per day. She has been doing this and has lost over 20 lbs. OCP use: Not using OCP currently. Metformin use: Was on this previously, but stopped this of her own accord. Hirsutism/hyperandrogenism: Thick coarse hairs on her chin, and acne. She has been following with SANDBLAST OPERATOR. She is using Prometrium to induce withdrawal bleeding monthly. 2) NTMNG: She had a thyroid US which revealed a multinodular thyroid. She underwent FNA biopsy of her left mid pole 2.3 cm thyroid nodule 05/04/2022 with benign (bethesda category II) cytology. Thyroid US: 02/17/2022 Right Thyroid Lobe: 4.9 x 1.6 x 1.5 cm, volume 6.3 mL. Parenchyma: The gland echotexture is heterogeneous. Thyroid vascularity is normal. Left Thyroid Lobe: 4.8 x 1.7 x 1.6 cm, volume 6.8 mL. Parenchyma: The gland echotexture is heterogeneous. Thyroid vascularity is normal. Isthmus: 0.2 cm in maximum AP dimension. Estimated total number of nodules greater than or equal to 1 cm: 3. Body Presser nodules are described as follows: 1. Location: Right mid pole. ?? ? Size: 1.2 x 2.2 x 1.2 cm, volume 1.6 mL. ?? ? Nodule characteristics: ?? ? Composition: Solid/almost completely solid (2). ?? ? Echogenicity: Hypoechoic (2). ?? ? Shape: Not taller than wide (0). ?? ? Margins: Lobulated (2). ?? ? Echogenic Foci: None (0). ?? ? ACR TI-RADS total points: 6 ?? ? ACR TI-RADS category: 4 2. Location: Right lower pole. ?? ? Size: 0.7 x 0.5 x 0.6 cm, volume 0.11 mL. ?? ? Nodule characteristics: ?? ? Composition: Solid/almost completely solid (2). ?? ? Echogenicity: Hypoechoic (2). ?? ? Shape: Not taller than wide (0). ?? ? Margins: Smooth (0). ?? ? Echogenic Foci: None (0). ?? ? ACR TI-RADS total points: 4 ?? ? ACR TI-RADS category: 4 3. Location: Left upper pole. ?? ? Size: 0.9 x 0.5 x 0.7 cm, volume 0.16 mL. ?? ? Nodule characteristics: ?? ? Composition: Solid/almost completely solid (2). ?? ? Echogenicity: Hypoechoic (2). ?? ? Shape: Not taller than wide (0). ?? ? Margins: Smooth (0). ?? ? Echogenic Foci: None (0). ?? ? ACR TI-RADS total points: 4 ?? ? ACR TI-RADS category: 4 4. Location: Left mid pole. ?? ? Size: 1.1 x 0.8 x 1.0 cm, volume 0.44 mL. ?? ? Nodule characteristics: ?? ? Composition: Mixed cystic and solid (1). ?? ? Echogenicity: Hypoechoic (2). ?? ? Shape: Not taller than wide (0). ?? ? Margins: Smooth (0). ?? ? Echogenic Foci: None (0). ?? ? ACR TI-RADS total points: 3 ?? ? ACR TI-RADS category: 3 5.? Location: Left lower pole. ?? ? Size: 1.7 x 0.8 x 0.7 cm, volume 0.50 mL. ?? ? Nodule characteristics: ?? ? Composition: Solid/almost completely solid (2). ?? ? Echogenicity: Hypoechoic (2). ?? ? Shape: Not taller than wide (0). ?? ? Margins: Smooth (0). ?? ? Echogenic Foci: Macrocalcifications (1). ?? ? ACR TI-RADS total points: 5 ?? ? ACR TI-RADS category: 4 NODES: No lymphadenopathy is seen in the tissue surrounding the thyroid gland. Pituitary MRI: 06/18/18 FINDINGS: The pituitary gland is normal in size and demonstrates normal homogeneous enhancement. The superior margin is concave. No differentially enhancing lesion is seen to suggest the presence of a microadenoma. The infundibulum inserts just left of midline. The hypothalamus appears normal. The cavernous sinuses demonstrate normal and symmetric enhancement. The optic apparatus appears normal. No pineal fossa region mass is seen. There is no acute infarction, mass, hemorrhage, or extra-axial collection. No abnormal or unexpected intracranial enhancement is seen. The ventricles, sulci, and basilar cisterns are normal in size and configuration. The flow voids of the major intracranial arteries appear intact. Atlantooccipital assimilation is incidentally noted. The extracranial structures otherwise appear within normal limits. IMPRESSION: - No hypothalamic pituitary axis abnormality is seen. Labs: Laboratory Tests 05/18/22 13:50 TSH 1.19 Free T4 0.82 Has nl menses . Has significant hair growth on face . Is planning pregancy. [facility] Medical History Multinodular thyroid Goiter Anemia PCOS (polycystic ovarian syndrome) Surgical History Hx of ultrasound guided needle biopsy Hx of cholecystectomy Hx of section Hx of tonsillectomy Family History Father Hypertension Mother Diabetes Maternal Grandmother Diabetes Paternal Grandfather Diabetes Cancer Paternal Grandmother Diabetes Arthritis of knee Social History Household Members: Children Housing: House Alcohol intake: never Patient Tobacco Use Status: Never used Tobacco Current occupational status: employed Current occupation: [employer] Sexual orientation: Straight/Heterosexual Gender identity: Female Female Reproductive History Menstrual Age of Menarche: 11 Physical Exam Vital Signs: BMI result Body Mass Index 40.7 Const Other: Thyroid gland is normal size weighs about 15 g. There are no palpable thyroid nodules Assessment & Plan Assessment & Plan (1) Multinodular thyroid: Code(s): E04.2 - Nontoxic multinodular goiter Plan: This is a 32-year-old female with a history of multinodular goiter status post FNA of left midpole nodule with benign cytology. She appears clinically and biochemically euthyroid. Recent thyroid ultrasound showed the presence of an additional right midpole nodule warranting biopsy Plan is to talk to the patient about potentially sending her for a biopsy of the right midpole nodule. (2) PCOS (polycystic ovarian syndrome): Code(s): E28.2 - Polycystic ovarian syndrome Plan: Currently not on medications and possibly planning . Will not start medication such as spironolactone until after Orders: Orders US guided fine needle asp Today E04.2 - Nontoxic multinodular goiter Coding Level of Care Code Est Pt Level 3 (94015) Diagnoses Multinodular thyroid E04.2 PCOS (polycystic ovarian syndrome) E28.2
[2023-06-21 16:17] VITALS: BP 110/74; PULSE 85; BMI 40.7
== END 2023-06-21 16:47 | disposition home or self-care (01) ==
PROVIDERS: PCP Nurse Practitioner Primary Care; Referring Provider Nurse Practitioner Primary Care; Visit Provider Internal Medicine Endocrinology, Diabetes & Metabolism
DX: E04.2 Nontoxic multinodular goiter (principal); E28.2 Polycystic ovarian syndrome
CPT/HCPCS: 99213

== ENCOUNTER → 2023-06-21 16:15 | Outpatient (BNVA) | payer MEDICAID, SELFPAY | PROVIDERS: PCP Nurse Practitioner Primary Care; Visit Provider Internal Medicine Endocrinology, Diabetes & Metabolism | DX: E04.2 Nontoxic multinodular goiter (principal); E28.2 Polycystic ovarian syndrome | CPT/HCPCS: 99212 ==

== ENCOUNTER 2023-07-19 13:23 | Outpatient (REF) | payer MEDICAID, SELFPAY ==
--- NOTE | ~2023-07-19 | US_ITS ---
Ultrasound-guided thyroid nodule fine needle aspiration Indication: Right lobe thyroid nodule Procedure: Informed consent was obtained from the patient prior to the procedure. During this process, the procedure and potential alternatives were explained, along with the intended outcome and benefits. The risks of the procedure, as well as the risks of not doing the procedure, were discussed. The patient was given the opportunity to ask questions regarding the procedure and appeared competent to make medical decisions. A signed consent form which documents this discussion was placed in the medical record. A timeout was performed in the room. The patient was placed in a supine position with the neck extended. The right side of the neck and chest was prepped and draped in routine sterile fashion. 1% lidocaine was used as anesthetic. Under real-time ultrasound guidance, a 25-gauge needle was placed into the nodule and aspiration was performed. A total of 3 aspirations were performed. The specimens were placed in CytoLyt and and the Affirma bottle. Postprocedure images showed no hematoma. A Band-Aid was applied to the access site. The patient tolerated the procedure well with no immediate complications. Permanent ultrasound images were archived to the procedure. US/US guided fine needle asp Impression: Right thyroid nodule fine-needle aspiration This procedure was performed by Rio Becker PA-C, and directly supervised by Dr. Jeffrey
[2023-07-19] MEDS: Lidocaine HCl 1 % MPF 5 ML VIAL SUBCUT (14:19)
== END 2023-07-19 13:24 | disposition home or self-care (01) ==
LOC: HO.US 13:23
PROVIDERS: PCP Nurse Practitioner Primary Care; Visit Provider Internal Medicine Endocrinology, Diabetes & Metabolism
DX: E04.2 Nontoxic multinodular goiter (principal)
CPT/HCPCS: 10005; 88173

== ENCOUNTER → 2023-07-19 13:26 | Outpatient (BNV) | payer MEDICAID, SELFPAY | PROVIDERS: PCP Nurse Practitioner Primary Care; Visit Provider Physician Assistant Surgical | DX: E04.2 Nontoxic multinodular goiter (principal) | CPT/HCPCS: 10005 ==

== ENCOUNTER 2023-07-20 09:04 | Outpatient (AMB) | payer MEDICAID, SELFPAY ==
[2023-07-20 09:08] VITALS: BP 127/64; PULSE 73; BMI 40.4
--- NOTE | 2023-07-20 09:08 | MHC.OFFVIS ---
Vital Signs 07/20/23 09:08 Height 5 ft 3 in Weight 227 lb 15.327 oz BMI 40.4 BP 127/64 Blood Pressure Location Lt brachial Position Sitting Pulse 73 Intake Visit Reasons: 6 week follow up Intake Note: Patient here for 6wk f/u GERD. Reports improvement with Omeprazole. Discuss recent H.pylori results. Patient c/o: Abd pain if does not take meds. Welcome Hostess Required: Yes Accompanied by: Self / Same As Patient Allergies No Known Allergies Allergy (Verified 07/20/23 09:13) HPI HPI 6 week follow up: Details: LAST VISIT Postprandial epigastric pain History of cholecystectomy GERD (gastroesophageal reflux disease) Postprandial abdominal bloating Plan Patient will be started on small dose of omeprazole. Discussed with patient avoiding dietary triggers and late night snacking. Will check for H pylori and treat empirically if positive. Will rule out celiac, pancreatitis. Will check liver profile, lipid panel. Will check thyroid. Patient will also start taking Senokot to help her move her bowels better. She will call the office in couple weeks if her symptoms will continue. Discussed with patient also low FODMAP diet. Food recommended as well as food to avoid discussed with patient. List provided to patient. I will see her in 6 weeks, sooner on as needed basis. Patient is agreeable to this plan and verbalizes understanding of instructions. She was given the opportunity to ask questions and all questions answered. ? Thank you for allowing me to participate in her care Orders Orders H Pylori Breath Test Today K21.9 Transglutaminase Ab IgG Today R10.9 Vitamin D 25-OH (D2 and D3) Today E55.9 Lipid Panel Today I25.10 Transglutaminase IgA Today R10.9 Lipase Today R10.9 TSH reflex Free T4 Today K59.00 Liver Panel Today R74.01 Medications New omeprazole 20 mg PO DAILY 30 caps 3RF K21.9 sennosides (Natural Senna Laxative) 17.2 mg (2 x 8.6 mg) PO BEDTIME 60 tabs 1RF constipation K59.00 Discontinued cyclobenzaprine Avoid driving after taking this medication Discontinued Reason: Patient no longer taking 10 mg PO TID PRN 7 tabs 0RF muscle spasm metronidazole Discontinued Reason: Patient no longer taking 500 mg PO BID 7 days 14 tabs 0RF TODAY'S VISIT: Patient is here today for follow-up and to discuss lab results. All of her lab work came back normal, except for low vitamin-D level. Patient started taking vitamin-D daily. No H pylori. Patient reports that she changed her diet. Avoiding spicy, fried or any fast food. Patient reports that she was taking omeprazole for 2 weeks and started to feel better. Now only takes it on as needed basis. Patient denies any dyspepsia, dysphagia or odynophagia. Denies any nausea or vomiting. Denies any abdominal pain or discomfort. Patient states that she is moving her bowels better. Only uses senna once or twice a week as needed PFSH Medical History Multinodular thyroid Goiter Anemia PCOS (polycystic ovarian syndrome) Surgical History Hx of ultrasound guided needle biopsy Hx of cholecystectomy Hx of section Hx of tonsillectomy Family History Father Hypertension Mother Diabetes Maternal Grandmother Diabetes Paternal Grandfather Diabetes Cancer Paternal Grandmother Diabetes Arthritis of knee Social History Household Members: Children Housing: House Alcohol intake: never Patient Tobacco Use Status: Never used Tobacco Current occupational status: employed Current occupation: [employer] Sexual orientation: Straight/Heterosexual Gender identity: Female Female Reproductive History Menstrual Age of Menarche: 11 Review of Systems Const Denies weight gain and Denies weight loss ENT Reports no additional complaints, Denies dysphagia and Denies odynophagia Card Reports no additional complaints Resp Reports no additional complaints GI Denies abdominal pain, Denies belching, Denies melena, Denies bloating, Denies change in bowel habits, Denies dysphagia, Denies excessive flatus, Denies dyspepsia, Reports heartburn (Occasional), Denies diarrhea, Denies loose stools, Denies nausea, Denies odynophagia and Denies vomiting Reports no additional complaints Musc Reports no additional complaints Neuro Reports no additional complaints Psych Reports no additional complaints Endo Reports no additional complaints Physical Exam Vital Signs: Last Vital Signs Pulse 73 07/20/23 09:08 BP 127/64 07/20/23 09:08 BMI result Body Mass Index 40.4 Const General: healthy appearing, no acute distress and well developed Orientation/consciousness: patient oriented x3 Resp Effort & Inspection: normal respiratory effort, able to speak in complete sentences, no tracheal deviation and symmetric chest movement Auscultation: clear to auscultation bilaterally Cardio Rate: regular rate GI Inspection: Yes normal to inspection, No distended and Yes obesity Palpation (GI): Soft to palpation, not firm, nontender and No hepatosplenomegaly present Auscultation: normal bowel sounds General: Yes no CVA tenderness Back/Spine/Pelvis Back: no CVA tenderness Skin General skin exam: elasticity normal, turgor normal and dry skin Neuro General: patient oriented x3 Psych Appearance: grossly normal Mental Status: mental status grossly normal Affect: normal affect Results Reviewed Results Reviewed: Laboratory Tests 06/01/23 06/15/23 12:47 10:40 Total Bilirubin 0.4 Direct Bilirubin 0.2 AST 13 ALT 10 Alkaline Phosphatase 68 Lipase 15 25-OH Vitamin D Total 16 L TSH 1.55 Tiss Transglutamin IgG <1.0 Tiss Transglutamin IgA <1.0 H. pylori Breath Test Negative ' Assessment & Plan Assessment & Plan (1) Postprandial epigastric pain: Code(s): R10.13 - Epigastric pain (2) History of cholecystectomy: Code(s): Z90.49 - Acquired absence of other specified parts of digestive tract (3) GERD (gastroesophageal reflux disease): Code(s): K21.9 - Gastro-esophageal reflux disease without esophagitis Qualifiers: Esophagitis presence: esophagitis presence not specified Qualified Code(s): K21.9 - Gastro-esophageal reflux disease without esophagitis (4) Postprandial abdominal bloating: Code(s): R14.0 - Abdominal distension (gaseous) Plan Continue avoiding dietary triggers and late night snacking. Staying upright for minimum 3 hours after meals discussed with patient. Patient will follow-up with us on as-needed basis. Continue omeprazole on as needed basis as well. She is agreeable to this plan and verbalizes understanding of instructions. She was given the opportunity to ask questions and all questions answered Coding Level of Care Code Est Pt Level 3 (76828) Diagnoses Postprandial epigastric pain R10.13 History of cholecystectomy Z90.49 Gastroesophageal reflux disease, unspecified whether esophagitis present K21.9 Esophagitis presence: esophagitis presence not specified Postprandial abdominal bloating R14.0 Time Spent (min) 30 Comment 20 minutes spent with patient and additional 10 minutes spent reviewing her records
== END 2023-07-20 09:38 | disposition home or self-care (01) ==
PROVIDERS: PCP Nurse Practitioner Primary Care; Visit Provider Nurse Practitioner Family
DX: R10.13 Epigastric pain (principal); Z90.49 Acquired absence of other specified parts of digestive tract; K21.9 Gastro-esophageal reflux disease without esophagitis; R14.0 Abdominal distension (gaseous)
CPT/HCPCS: 99213

== ENCOUNTER → 2023-07-20 09:04 | Outpatient (BNVA) | payer MEDICAID, SELFPAY | PROVIDERS: PCP Nurse Practitioner Primary Care; Visit Provider Nurse Practitioner Family | DX: R10.13 Epigastric pain (principal); K21.9 Gastro-esophageal reflux disease without esophagitis; R14.0 Abdominal distension (gaseous); Z90.49 Acquired absence of other specified parts of digestive tract | CPT/HCPCS: 99212 ==

== ENCOUNTER 2023-08-09 13:51 | Outpatient (AMB) | payer MEDICAID, SELFPAY ==
--- NOTE | 2023-08-09 13:54 | MHC.OFFVIS ---
Vital Signs 08/09/23 14:01 Height 5 ft 3 in Weight 227 lb 11.8 oz BMI 40.3 BP 106/80 Blood Pressure Location Lt brachial Position Sitting Pulse 74 Pulse Source Pulse Oximeter Intake Visit Reasons: f/u US results-confirmed Intake Note: Patient present today for NTMNG and PCOS follow up visit. Control Chemist Required: Yes Control Chemist Language: Cold Working Inspector Name: Bran Information Interpreted: non-clinical & clinical Accompanied by: Self / Same As Patient Allergies No Known Allergies Allergy (Verified 08/09/23 14:03) HPI Comments Details: 32 YO Female with PMHx Asthma who is seen in F/U for PCOS/Oligomenorrhea and a NTMNG. 1) PCOS: Menarche was age 11. Menses were regular initially, but have become irregular for 6 years after having her son. She reports gaining approximately 50 lbs with her son, and has since had irregular menses. She skips some months, not having menses for up to 3 months at a time. Sometimes heavy, sometimes very light. She also reported some hirsutism and difficulty conceiving. At her initial visit we completed a full panel including assessing for hyperandrogenism from ovarian and adrenal source. Workup was completely WNL. She did have labs concerning for adrenal insufficiency but underwent cosyntropin stim testing which was WNL. She was started on Metformin 500 mg PO BID, and since that time has had regular monthly menses. She stopped the Metformin of her own accord, but reports menses remain regular. She was also referred to the bariatric weight management program, and only attended the orientation session. We reviewed using [employer] to track calories and limiting calories to 1500 per day. She has been doing this and has lost over 20 lbs. OCP use: Not using OCP currently. Metformin use: Was on this previously, but stopped this of her own accord. Hirsutism/hyperandrogenism: Thick coarse hairs on her chin, and acne. She has been following with SENIOR ANIMATOR. She is using Prometrium to induce withdrawal bleeding monthly. 2) NTMNG: She had a thyroid US which revealed a multinodular thyroid. She underwent FNA biopsy of her left mid pole 2.3 cm thyroid nodule 05/04/2022 with benign (bethesda category II) cytology. Thyroid US: 02/17/2022 Right Thyroid Lobe: 4.9 x 1.6 x 1.5 cm, volume 6.3 mL. Parenchyma: The gland echotexture is heterogeneous. Thyroid vascularity is normal. Left Thyroid Lobe: 4.8 x 1.7 x 1.6 cm, volume 6.8 mL. Parenchyma: The gland echotexture is heterogeneous. Thyroid vascularity is normal. Isthmus: 0.2 cm in maximum AP dimension. Estimated total number of nodules greater than or equal to 1 cm: 3. Health Informatics Specialist nodules are described as follows: 1. Location: Right mid pole. ?? ? Size: 1.2 x 2.2 x 1.2 cm, volume 1.6 mL. ?? ? Nodule characteristics: ?? ? Composition: Solid/almost completely solid (2). ?? ? Echogenicity: Hypoechoic (2). ?? ? Shape: Not taller than wide (0). ?? ? Margins: Lobulated (2). ?? ? Echogenic Foci: None (0). ?? ? ACR TI-RADS total points: 6 ?? ? ACR TI-RADS category: 4 2. Location: Right lower pole. ?? ? Size: 0.7 x 0.5 x 0.6 cm, volume 0.11 mL. ?? ? Nodule characteristics: ?? ? Composition: Solid/almost completely solid (2). ?? ? Echogenicity: Hypoechoic (2). ?? ? Shape: Not taller than wide (0). ?? ? Margins: Smooth (0). ?? ? Echogenic Foci: None (0). ?? ? ACR TI-RADS total points: 4 ?? ? ACR TI-RADS category: 4 3. Location: Left upper pole. ?? ? Size: 0.9 x 0.5 x 0.7 cm, volume 0.16 mL. ?? ? Nodule characteristics: ?? ? Composition: Solid/almost completely solid (2). ?? ? Echogenicity: Hypoechoic (2). ?? ? Shape: Not taller than wide (0). ?? ? Margins: Smooth (0). ?? ? Echogenic Foci: None (0). ?? ? ACR TI-RADS total points: 4 ?? ? ACR TI-RADS category: 4 4. Location: Left mid pole. ?? ? Size: 1.1 x 0.8 x 1.0 cm, volume 0.44 mL. ?? ? Nodule characteristics: ?? ? Composition: Mixed cystic and solid (1). ?? ? Echogenicity: Hypoechoic (2). ?? ? Shape: Not taller than wide (0). ?? ? Margins: Smooth (0). ?? ? Echogenic Foci: None (0). ?? ? ACR TI-RADS total points: 3 ?? ? ACR TI-RADS category: 3 5.? Location: Left lower pole. ?? ? Size: 1.7 x 0.8 x 0.7 cm, volume 0.50 mL. ?? ? Nodule characteristics: ?? ? Composition: Solid/almost completely solid (2). ?? ? Echogenicity: Hypoechoic (2). ?? ? Shape: Not taller than wide (0). ?? ? Margins: Smooth (0). ?? ? Echogenic Foci: Macrocalcifications (1). ?? ? ACR TI-RADS total points: 5 ?? ? ACR TI-RADS category: 4 NODES: No lymphadenopathy is seen in the tissue surrounding the thyroid gland. Pituitary MRI: 06/18/18 FINDINGS: The pituitary gland is normal in size and demonstrates normal homogeneous enhancement. The superior margin is concave. No differentially enhancing lesion is seen to suggest the presence of a microadenoma. The infundibulum inserts just left of midline. The hypothalamus appears normal. The cavernous sinuses demonstrate normal and symmetric enhancement. The optic apparatus appears normal. No pineal fossa region mass is seen. There is no acute infarction, mass, hemorrhage, or extra-axial collection. No abnormal or unexpected intracranial enhancement is seen. The ventricles, sulci, and basilar cisterns are normal in size and configuration. The flow voids of the major intracranial arteries appear intact. Atlantooccipital assimilation is incidentally noted. The extracranial structures otherwise appear within normal limits. IMPRESSION: - No hypothalamic pituitary axis abnormality is seen. Labs: Laboratory Tests 05/18/22 13:50 TSH 1.19 Free T4 0.82 Has nl menses . Has significant hair growth on face . Is planning pregancy. Status post FNA [facility] Medical History Multinodular thyroid Goiter Anemia PCOS (polycystic ovarian syndrome) Surgical History Hx of ultrasound guided needle biopsy Hx of cholecystectomy Hx of section Hx of tonsillectomy Family History Father Hypertension Mother Diabetes Maternal Grandmother Diabetes Paternal Grandfather Diabetes Cancer Paternal Grandmother Diabetes Arthritis of knee Social History Household Members: Children Housing: House Alcohol intake: never Patient Tobacco Use Status: Never used Tobacco Current occupational status: employed Current occupation: [employer] Sexual orientation: Straight/Heterosexual Gender identity: Female Female Reproductive History Menstrual Age of Menarche: 11 Physical Exam Const Other: Thyroid gland is normal size weighs about 15 g. There are no palpable thyroid nodules Assessment & Plan Assessment & Plan (1) Multinodular thyroid: Code(s): E04.2 - Nontoxic multinodular goiter Category: Medical Plan: This is a 32-year-old female with a history of multinodular goiter status post FNA of left midpole nodule with benign cytology. She appears clinically and biochemically euthyroid. Recent thyroid ultrasound showed the presence of an additional right midpole nodule warranting biopsy. She is status post FNA of the right midpole nodule with benign cytology. She is clinically biochemically euthyroid Plan is to follow the multinodular goiter with serial ultrasounds. (2) PCOS (polycystic ovarian syndrome): Code(s): E28.2 - Polycystic ovarian syndrome Category: Medical Plan: Currently not on medications and possibly planning . Will not start medication such as spironolactone until after Coding Level of Care Code Est Pt Level 3 (91881) Diagnoses Multinodular thyroid E04.2 PCOS (polycystic ovarian syndrome) E28.2
[2023-08-09 14:01] VITALS: BP 106/80; PULSE 74; BMI 40.3
== END 2023-08-09 14:25 | disposition home or self-care (01) ==
PROVIDERS: PCP Nurse Practitioner Primary Care; Referring Provider Nurse Practitioner Primary Care; Visit Provider Internal Medicine Endocrinology, Diabetes & Metabolism
DX: E04.2 Nontoxic multinodular goiter (principal); E28.2 Polycystic ovarian syndrome
CPT/HCPCS: 99213

== ENCOUNTER → 2023-08-09 13:51 | Outpatient (BNVA) | payer MEDICAID, SELFPAY | PROVIDERS: Visit Provider Internal Medicine Endocrinology, Diabetes & Metabolism | DX: E04.2 Nontoxic multinodular goiter (principal); E28.2 Polycystic ovarian syndrome | CPT/HCPCS: 99212 ==

== ENCOUNTER 2024-01-17 09:28 | Outpatient (AMB) | payer MEDICAID, SELFPAY ==
--- NOTE | 2024-01-17 09:39 | MHC.OFFVIS ---
Vital Signs 01/17/24 09:40 Height 5 ft 3 in Weight 244 lb BMI 43.2 BP 118/74 Intake Visit Reasons: PLASTIC SURGERY NURSE annual exam/DO NOT [employer] Enforcement Agent Required: No Information Interpreted: non-clinical & clinical Insights Strategist: Insights Strategist Present (Nisreen BURK) Accompanied by: Self / Same As Patient Allergies No Known Allergies Allergy (Verified 01/17/24 09:45) Is last menstrual period known: Yes Last menstrual period: 12/26/23 HPI Comments Details: Presenting for annual exam. Complaining of pelvic pressure around her menstrual cycles over the last few months associated with passage of blood clots and no other symptoms, no vaginal discharge. Last Pap/HPV was negative in 10/30 [facility] Medical History Multinodular thyroid Goiter Anemia PCOS (polycystic ovarian syndrome) Surgical History Hx of ultrasound guided needle biopsy Hx of cholecystectomy Hx of section Hx of tonsillectomy Family History Father Hypertension Mother Diabetes Maternal Grandmother Diabetes Paternal Grandfather Diabetes Cancer Paternal Grandmother Diabetes Arthritis of knee Social History Household Members: Children Housing: House Alcohol intake: never Patient Tobacco Use Status: Never used Tobacco Current occupational status: employed Current occupation: [employer] Sexual orientation: Straight/Heterosexual Gender identity: Female Female Reproductive History Menstrual Age of Menarche: 11 Date of last menstrual period: 12/26/23 control method: none Total pregnancies: 1 Full term: 1 Number of Living Children: 1 Date of last pap smear: 11/02/20 Review of Systems Const All systems reviewed & are unremarkable except as noted in HPI and below Card Reports as per HPI Resp Reports as per HPI GI Reports as per HPI and Reports no additional complaints Reports as per HPI Physical Exam Vital Signs: Last Vital Signs BP 118/74 01/17/24 09:40 BMI result Body Mass Index 43.2 Const General: cooperative, healthy appearing and comfortable Chest Chest palpation & inspection: normal inspection of the chest and normal palpation of entire chest wall Breast/axilla inspection: normal inspection of the breasts and normal inspection of the axillae Breast/axilla palpation: normal palpation of the breasts, normal palpation of the axillae and no axillary lymphadenopathy Resp Effort & Inspection: normal respiratory effort Auscultation: clear to auscultation bilaterally Percussion: percussion normal Cardio Palpation: normal PMI Rate: regular rate Rhythm: regular rhythm Heart sounds: no murmurs and no rubs Peripheral pulses: Peripheral pulses 2+ throughout GI Inspection: Yes normal to inspection Palpation (GI): Soft to palpation, nontender, no guarding, not rigid and No hepatosplenomegaly present Percussion: Yes normal to percussion Auscultation: normal bowel sounds Rectal Exam - Female: deferred General: Yes bladder normal to palpation External Female Exam: No lesion Speculum Exam - Vagina: normal appearance of the vagina, normal palpation, normal vaginal discharge and not erythematous Speculum Exam - Cervix: normal appearance of the cervix and normal palpation Bimanual exam- vagina & uterus: normal bimanual exam, normal palpation, uterine size normal, bladder normal to palpation, consistency normal and normal palpation Bimanual Exam- Adnexa, other: normal adnexae, no masses and no tenderness Assessment & Plan Assessment & Plan (1) Well woman exam: Code(s): Z01.419 - Encounter for gynecological examination (general) (routine) without abnormal findings Category: Medical Plan: Cotesting done. Counseled the patient about the recommended dietary allowance of 1000 mg of Calcium & 600 IU of vitamin D. The patient was instructed to perform monthly self-breast exams and to schedule an annual exam in a year; All questions answered and the patient verbalized understanding. Instructed the patient to schedule annual exam in a year (2) Pelvic pain: Code(s): R10.2 - Pelvic and perineal pain Category: Medical Plan: Urine dip and test done in the office were both negative. GC and chlamydia taken and pelvic ultrasound ordered. Discussed with the patient the differential diagnosis of pelvic pain including but not limited to adnexal, uterine masses, pelvic infections (PID), GI the (Irritable bowel syndrome, diverticulitis, others), musculoskeletal, myofascial pain abdominal wall , adhesions, endometriosis, psychological and others causes. Will check results and treat accordingly. All questions answered, the patient verbalized understanding. Instructed the patient to schedule follow-up appointment in 2 weeks Orders: Orders US pelvic and transvaginal Today R10.2 - Pelvic and perineal pain Coding Level of Care Code Est Pt Level 3 (85808) Est Pt Prev Care 18-39y(63531) Diagnoses Well woman exam Z01.419 Pelvic pain R10.2
[2024-01-17 09:40] VITALS: BP 118/74; BMI 43.2
== END 2024-01-17 10:18 | disposition home or self-care (01) ==
LOC: HO.HWS 09:29
PROVIDERS: PCP Nurse Practitioner Primary Care; Visit Provider Obstetrics & Gynecology
DX: Z01.419 Encounter for gynecological examination (general) (routine) without abnormal findings (principal); R10.2 Pelvic and perineal pain
CPT/HCPCS: 99213; 99395

== ENCOUNTER 2024-01-17 09:28 | Outpatient (REF) | payer MEDICAID, SELFPAY ==
[2024-01-17 17:19] LABS: CT PCR NOT DETECTED (Not Detect.); NG PCR NOT DETECTED (Not Detect.)
== END 2024-01-17 09:29 | disposition home or self-care (01) ==
LOC: HO.LNP 09:28
PROVIDERS: PCP Nurse Practitioner Primary Care; Visit Provider Obstetrics & Gynecology
DX: Z01.419 Encounter for gynecological examination (general) (routine) without abnormal findings (principal); R10.2 Pelvic and perineal pain; Z11.3 Encounter for screening for infections with a predominantly sexual mode of transmission
CPT/HCPCS: 87491; 87591; 99212; 99395

== ENCOUNTER 2024-01-25 11:34 | Outpatient (REF) | payer MEDICAID, SELFPAY | END 2024-01-25 11:35 | disposition home or self-care (01) | LOC: HO.US 11:34 | PROVIDERS: PCP Nurse Practitioner Primary Care; Visit Provider Obstetrics & Gynecology | DX: R10.2 Pelvic and perineal pain (principal) | CPT/HCPCS: 76830; 76856 ==

== ENCOUNTER 2024-03-18 13:11 | Outpatient (AMB) | payer MEDICAID, SELFPAY ==
--- NOTE | 2024-03-18 13:11 | MHC.OFFVIS ---
Intake Visit Reasons: ultrasound results Allergies No Known Allergies Allergy (Verified 01/17/24 09:45) HPI Comments Details: The patient is scheduled tele health visit for follow-up regarding her pelvic pain. The patient is doing well. The following workup was done so far: GC/CT negative. Last visit urine test was negative. Last visit urine dip. Pelvic ultrasound done on 01/25/24, read 03/17/2024 showed the following: IMPRESSION: 1. Right ovarian 2.7 x 1.8 x 2.6 cm cyst is mildly complex with possible thin septation and was not identified on the prior study. Correlation with clinical exam recommended to determine further management for this patient with pelvic and perineal pain. 2. Endometrial thickness is 16 mm. 3. Visualization limited on transvaginal ultrasound images due to uterine positioning. 4. Small amount of fluid identified within the lower uterine segment and within the cervical canal. 5. Small amount of free fluid in the cul-de-sac. [facility] Medical History Multinodular thyroid Goiter Anemia PCOS (polycystic ovarian syndrome) Surgical History Hx of ultrasound guided needle biopsy Hx of cholecystectomy Hx of section Hx of tonsillectomy Family History Father Hypertension Mother Diabetes Maternal Grandmother Diabetes Paternal Grandfather Diabetes Cancer Paternal Grandmother Diabetes Arthritis of knee Social History Household Members: Children Housing: House Alcohol intake: never Patient Tobacco Use Status: Never used Tobacco Current occupational status: employed Current occupation: [employer] Sexual orientation: Straight/Heterosexual Gender identity: Female Female Reproductive History Menstrual Age of Menarche: 11 Telehealth Telehealth Telehealth Platform: Telephone Location of provider rendering services: practice address Location of patient: address on file Patient Identification confirmed using: Name, : Yes Telehealth method: video Patient verbally consented to treatment: Yes Patient verbally consented to billing insurance company: Yes Patient informed of any privacy concerns related to visit: Yes Assessment & Plan Assessment & Plan (1) Complex ovarian cyst: Code(s): N83.299 - Other ovarian cyst, unspecified side Category: Medical Plan: Discussed with the patient the complex ovarian cyst by ultrasound. Discussed with the patient the Ultrasound findings, the main limitation of transvaginal ultrasonography alone as a diagnostic tool to distinguish benign from malignant masses relates to its lack of specificity and low positive predictive value for cancer. The differential diagnosis discussed with the patient includes the following but not limited to: benign and malignant gynecological and non-gynecological causes. Discussed with the patient options of treatment including laparoscopy ovarian cystectomy/oophorectomy vs. repeating pelvic US in 6 weeks from previous US. Since last ultrasound was done on 01/24, will repeat ultrasound If the ovarian complex cyst is persistent larger and / or more complex looking will refer to gynecologic Oncology. All pros, cons, risks and benefits of each approach were discussed with the patient including but not limited to a delay in the diagnosis and treatment of ovarian cancer affecting the prognosis; The patient decided to go ahead with expectant management. Instructions given the patient to schedule a pelvic ultrasound and a 2 week follow-up ultrasound appointment. All questions were answered & the patient verbalized understanding and agreed with the plan. I spent a total of 20 minutes reviewing the chart, talking to the patient via video and documenting in the medical record. Orders: Orders US pelvic and transvaginal Today N83.299 - Other ovarian cyst, unspecified side Coding Level of Care Code Tele Est Pt Level 3 (84202) Diagnoses Complex ovarian cyst N83.299
== END 2024-03-18 14:04 | disposition home or self-care (01) ==
LOC: HO.HWS 13:11
PROVIDERS: PCP Nurse Practitioner Primary Care; Visit Provider Obstetrics & Gynecology
DX: N83.299 Other ovarian cyst, unspecified side (principal)
CPT/HCPCS: 99213

== ENCOUNTER → 2024-03-28 12:11 | Outpatient (BNV) | payer MEDICAID, SELFPAY | PROVIDERS: Visit Provider Radiology Diagnostic Radiology | DX: M25.552 Pain in left hip (principal); M54.50 Low back pain, unspecified; R10.2 Pelvic and perineal pain | CPT/HCPCS: 72110; 73502; 76830; 76856 ==

== ENCOUNTER 2024-03-28 13:44 | Outpatient (REF) | payer MEDICAID, SELFPAY ==
--- NOTE | ~2024-03-28 | US_ITS ---
EXAMINATION: US PELVIS CLINICAL INFORMATION: Ovarian cyst COMPARISON: Ultrasound pelvis 01/25/2024 TECHNIQUE: Ultrasound of the pelvis is performed using both transabdominal and transvaginal transducers along with Doppler. Transvaginal imaging is performed due to inadequate visualization transabdominally. FINDINGS: Uterus: The uterus is anteverted , anteflexed and measures 13.5 x 4.6 x 5.1 cm. The double wall endometrial thickness is 1.7 cm. The uterus is smooth in contour and has normal myometrial echogenicity. No visible fibroid. Adnexa: Both ovaries are visualized on transabdominal ultrasound only. There is normal color flow to the adnexa. There is no ovarian torsion. There is no pelvic ascites or fluid collection. Right ovary measures 3.1 x 1.7 x 2.1 cm. Volume 5.8 mL. Previously measured 4.3 x 2.7 x 3.5 cm Left ovary measures 2.8 x 1.2 x 1.2 cm. Volume 1.4 mL . Previously measured 2.5 x 1.4 2.3 cm US/US pelvic and transvaginal IMPRESSION: Unremarkable uterus and ovaries. Electronically signed by: Santiago Schofield MD 03/28/2024 03:18 PM [facility]
== END 2024-03-28 13:45 | disposition home or self-care (01) ==
LOC: HO.US 13:44
PROVIDERS: PCP Nurse Practitioner Primary Care; Visit Provider Obstetrics & Gynecology
DX: N83.299 Other ovarian cyst, unspecified side (principal)
CPT/HCPCS: 76830; 76856

== ENCOUNTER 2024-04-03 11:14 | Outpatient (REF) | payer MEDICAID, SELFPAY ==
[2024-04-03 12:34] LABS: HCG Quantitative 2287 mIU/mL
== END 2024-04-03 11:15 | disposition home or self-care (01) ==
LOC: HO.LAB 11:14
PROVIDERS: PCP Nurse Practitioner Primary Care; Visit Provider Nurse Practitioner Primary Care
DX: Z30.09 Encounter for other general counseling and advice on contraception (principal)
CPT/HCPCS: 36415; 84702

== ENCOUNTER 2024-04-18 13:59 | Outpatient (AMB) | payer MEDICAID, SELFPAY ==
--- NOTE | 2024-04-18 14:00 | MHC.OFFVIS ---
Vital Signs 04/18/24 14:01 Height 5 ft 3 in Weight 244 lb BMI 43.2 Intake Visit Reasons: ultrasound results Battery Starter Required: Yes Battery Starter Language: [employer] Services: Battery Starter Present (in person) Battery Starter Name: Nisreen BURK Information Interpreted: non-clinical & clinical Accompanied by: Self / Same As Patient Allergies No Known Allergies Allergy (Verified 04/18/24 14:07) HPI Comments Details: Presenting for ultrasound follow-up regarding previously identified complex ovarian cyst on ultrasound done in 01/25/24. Follow-up repeat Pelvic ultrasound done recently showed the following: 'IMPRESSION: Unremarkable uterus and ovaries. The patient had a positive test at home LMP 02/25 making her by today at 7 weeks and 4 days of gestation complaining of mild nausea no vomiting unable to keep food and fluid down no pelvic cramping and or bleeding. COUNTS INCLUDE 234 BEDS AT THE [facility] Medical History Multinodular thyroid Goiter Anemia PCOS (polycystic ovarian syndrome) Surgical History Hx of ultrasound guided needle biopsy Hx of cholecystectomy Hx of section Hx of tonsillectomy Family History Father Hypertension Mother Diabetes Maternal Grandmother Diabetes Paternal Grandfather Diabetes Cancer Paternal Grandmother Diabetes Arthritis of knee Social History Household Members: Children Housing: House Alcohol intake: never Patient Tobacco Use Status: Never used Tobacco Current occupational status: employed Current occupation: [employer] Sexual orientation: Straight/Heterosexual Gender identity: Female Female Reproductive History Menstrual Age of Menarche: 11 Review of Systems Const All systems reviewed & are unremarkable except as noted in HPI and below Reports as per HPI and Reports no additional complaints GI Reports no additional complaints Reports no additional complaints Physical Exam Vital Signs: BMI result Body Mass Index 43.2 Assessment & Plan Assessment & Plan (1) Complex ovarian cyst: Code(s): N83.299 - Other ovarian cyst, unspecified side Category: Medical Plan: Discussed with the patient ultrasound findings showing the previously identified complex cyst has resolved. The patient was instructed to call if symptoms recur. All questions were answered the patient verbalized understanding. (2) : Code(s): Z34.90 - Encounter for supervision of normal , unspecified, unspecified trimester Category: Medical Plan: Urine test done in the office was positive. Ultrasoundordered to confirm IUP and viable , vitamin tablet p.o. q.d.. Vitamin B6 25 mg p.o. t.i.d. p.r.n. nausea and vomiting. Instructions given the patient to call or go to emergency room in case of intractable nausea and vomiting, vaginal bleeding and or cramping and to schedule an ultrasound and a follow-up appointment within few days. Offered the patient an appointment for care, the patient stated that she is in the process of scheduling her appointment at [facility]. All questions answered, the patient verbalized understanding Orders: Orders US OB <= 14 weeks fetus Today Z34.90 - Encounter for supervision of normal , unspecified, unspecified trimester Medications: New pyridoxine (vitamin B6) (Vitamin B-6) may take every 6 - 8 hours for nausea 25 mg PO tid 30 days PRN 90 tabs 3RF nausea Coding Level of Care Code Est Pt Level 3 (40072) Diagnoses Complex ovarian cyst N83.299 Z34.90
== END 2024-04-18 14:59 | disposition home or self-care (01) ==
PROVIDERS: PCP Nurse Practitioner Primary Care; Visit Provider Obstetrics & Gynecology
DX: N83.299 Other ovarian cyst, unspecified side (principal); Z34.90 Encounter for supervision of normal pregnancy, unspecified, unspecified trimester
CPT/HCPCS: 99213

== ENCOUNTER → 2024-04-18 13:59 | Outpatient (BNVA) | payer MEDICAID, SELFPAY | PROVIDERS: PCP Nurse Practitioner Primary Care; Visit Provider Obstetrics & Gynecology | DX: O34.81 Maternal care for other abnormalities of pelvic organs, first trimester (principal); N83.209 Unspecified ovarian cyst, unspecified side; Z3A.01 Less than 8 weeks gestation of pregnancy | CPT/HCPCS: 99212 ==

== ENCOUNTER 2024-04-21 10:50 | Outpatient (REF) | payer MEDICAID, SELFPAY ==
--- NOTE | ~2024-04-21 | US_ITS ---
CLINICAL HISTORY: Z34.90 - Encounter for supervision of normal , unspecified, uns... US OB 1st trimester transabdominal Comparison: None Findings: Single intrauterine . CRL: 1.1 cm. EGA: 7 weeks and 2 days. ZOILA: 12/06/2024. Previously established gestational age: N/A. Normal yolk sac . Cardiac activity: 130 bpm. No subchorionic bleed. Ovaries and adnexa are within normal limits. IMPRESSION: Single intrauterine estimated 7 weeks and 2 days gestational age by today's ultrasound criteria. This document has been electronically signed by: Naeem Mcmullen MD on 04/22/2024 11:45:10
--- OUTSIDE RECORDS SUMMARY | 2024-04-21 11:53 | XMS_ITS | Encounter Summary ---
Author Organization [employer] Address [address] [place] [address] Care Team Providers Care Hl7 Interface Developer Name Role Phone Cara Mcknight RICHARD Primary Care Provider [phone] Encounter Details Date Type Department Care Team (Late st Contact Info) Description 03/28/2024 Orders Only [facility] External Provider, [facility] Social History Tobacco Use Types Packs/Day Years Used Date Smoking Tobacco: Never Passive Smoke Exposure: Never Smokeless Tobacco: Never Alcohol Use Standard Drinks/Week Comments Never 0 (1 standard drink = 0.6 oz pur e alcohol) Depression Answer Date Recorded Patient Health Questionnaire-9 Score 5 10/05/2023 Patient Health Questionnaire-9 Score 5 10/05/2023 Last PHQ-9: Questionnaire Data Not on file 0 10/05/2023 Housing Stability Answer Date Recorded What is your housing situation today? I have joy valdez 12/25/[address] you li ve. Do you have problems with any of the following? None of the above 12/25/2022 Food Insecurity Answer Date Recorded Within the past 12 months, y ou worried that your food would run out before you got money to buy more: Sometimes True 2023 Within the past 12 months,th e food you bought just didn't last and you didn't have enough money to get more: Sometimes True 06/05/2023 Transportation Answer Date Recorded In the past 12 months, has l ack of transportation kept you from medical appts, meetings, work or from getting things needed for daily living? No 01/05/2023 Utilities Answer Date Recorded In the past 12 months, has t he electric, gas, oil or water company threatened to shut off services in your home? No 12/25/2022 Depression Answer Date Recorded Patient Health Questionnaire-2 Score 0 10/05/2023 Internet Access Answer Date Recorded Internet Access Q1 Yes 03/19/2024 Internet Access Q2 Not on file 03/19/2024 Comments Unknown Sex and Gender Information Value Date Recorded Sex Assigned at Female 01/09/2022 10:17 AM EDT Legal Sex Female 10:17 AM EDT Gender Identity Female 01/09/2022 10:17 AM EDT Sexual Orientation Straight 01/09/2022 10 :17 AM EDT documented as of this encounter Plan of Treatment Upcoming Encounters Date Type Department Care Team (Late st Contact Info) Description 05/23/2024 9:45 AM EDT Office Visit [facility] MED[facility]INE [address] [place] [address] Cara Mcknight ANP [address] [place] [address] documented as of this encounter Procedures Procedure Name Priority Date/Time Associated Diagnosis Comments US PELVIS TRANSVAGINAL Routine 03/28/2024 2:12 PM EST documented in this encounter Results * US Pelvis Transvaginal (03/28/2024 2:12 PM EST) Anatomical Region Laterality Modality Pelvis Ultrasound 03/28/2024 2:12 PM EST Narrative 03/28/2024 3:21 PM EST ? [facility] ?[address] ?[place] [address] ? Ultrasound Report ? Signed ? Patient: Beatriz Martinez ?M ?? R#: [id number] ? : 1990 ?Acct:[id number] ? Age/Sex: 33 / F ?ADM Date: 01/17/25 ? Loc: HO.US ? Attending Dr: Tien Carranza MD ? Ordering Physician: Tien Carranza MD ?? Date of Service: 03/28/24 ?? Procedure(s): US pelvic and transvaginal ?? Accession Number(s): [id number] ? cc: CARA MCKNIGHT NP; Tien Carranza MD ? EXAMINATION: ? US PELVIS ? CLINICAL INFORMATION: ? Ovarian cyst ? COMPARISON: ?? Ultrasound pelvis 01/25/2024 ? TECHNIQUE: ?? Ultrasound of the pelvis is performed using both transabdominal and ?? transvaginal transducers along with Doppler. Transvaginal imaging is ?? performed due to inadequate visualization transabdominally. ? FINDINGS: ?? Uterus: ?? The uterus is anteverted , anteflexed and measures 13.5 x 4.6 x 5.1 cm. ? The double wall endometrial thickness is 1.7 cm. ? The uterus is smooth in contour and has normal myometrial echogenicity. ?No visible fibroid. ? Adnexa: ?? Both ovaries are visualized on transabdominal ultrasound only. There is ?? normal color flow to the adnexa. There is no ovarian torsion. ??There is ?? no pelvic ascites or fluid collection. ? Right ovary measures 3.1 x 1.7 x 2.1 cm. Volume 5.8 mL. Previously ?? measured 4.3 x 2.7 x 3.5 cm ? Left ovary measures 2.8 x 1.2 x 1.2 cm. Volume 1.4 mL . Previously ?? measured 2.5 x 1.4 2.3 cm ? US/US pelvic and transvaginal ?? IMPRESSION: ?? Unremarkable uterus and ovaries. ? Electronically signed by: ??Santiago Schofield MD ??03/28/2024 03:18 PM EST RP ? Dictated By: ?Kanwal,Santiago S MD ? Signed By: ?<Electronically signed by Santiago S Kanwal, MD in OV> ?03/28/24 1518 ? DD/ 1412 ? TD/TT: 03/28/24 1428 ? [employer]: MSM ? Procedure Note Cinthia Ibarra - 03/28/[address] [address] Ultrasound Report Signed Patient: Beatriz Martinez AM R#: [id number] : 1990Acct:[id number] Age/Sex: 33 / FADM Date: 03/28/24 Loc: HO.US Attending Dr: Tien Carranza MD Ordering Physician: Tien Carranza MD Date of Service: 03/28/24 Procedure(s): US pelvic and transvaginal Accession Number(s): [id number] cc: CARA MCKNIGHT RETAIL STORE ASSOCIATE; Tien Carranza MD EXAMINATION: US PELVIS CLINICAL INFORMATION: Ovarian cyst COMPARISON: Ultrasound pelvis 01/25/2024 TECHNIQUE: Ultrasound of the pelvis is performed using both transabdominal and transvaginal transducers along with Doppler. Transvaginal imaging is performed due to inadequate visualization transabdominally. FINDINGS: Uterus: The uterus is anteverted , anteflexed and measures 13.5 x 4.6 x 5.1 cm. The double wall endometrial thickness is 1.7 cm. The uterus is smooth in contour and has normal myometrial echogenicity. No visible fibroid. Adnexa: Both ovaries are visualized on transabdominal ultrasound only. There is normal color flow to the adnexa. There is no ovarian torsion. There is no pelvic ascites or fluid collection. Right ovary measures 3.1 x 1.7 x 2.1 cm. Volume 5.8 mL. Previously measured 4.3 x 2.7 x 3.5 cm Left ovary measures 2.8 x 1.2 x 1.2 cm. Volume 1.4 mL . Previously measured 2.5 x 1.4 2.3 cm US/US pelvic and transvaginal IMPRESSION: Unremarkable uterus and ovaries. Electronically signed by: Santiago Schofield MD 03/28/2024 03:18 PM [facility] Dictated By: Santiago Schofield MD Signed By: <Electronically signed by Santiago Schofield MD in OV> 03/28/24 1518 DD/ 1412 TD/TT: 03/28/24 1428 [employer]: [facility] External Provider IMG US PROCEDURES Edited Result - Final documented in this encounter Visit Diagnoses Not on filedocumented in this encounter Additional Health Concerns Assessment Noted Time PHQ-9 Depression Total Score: 5 10/05/19 24 9:09 AM EDT documented as of this encounter Care Teams Hl7 Interface Developer Relationship Specialty Start Date End Date Cara Mcknight ANP [address] [place] [address] PCP - General Family Medicine 02/27/20 documented as of this encounter
--- OUTSIDE RECORDS SUMMARY | 2024-04-21 11:53 | XMS_ITS | Encounter Summary ---
Author Organization [employer] Address [address] [place] [address] Care Team Providers Care Film Laboratory Technician Name Role Phone Golden Ria RAMOS Primary Care Provider [phone] Encounter Details Date Type Department Care Team (Late st Contact Info) Description 12/15/2022 Abstract [facility] MEDICINE [address] [place] [address] Tamika Barnett Social History Tobacco Use Types Packs/Day Years Used Date Smoking Tobacco: Never Passive Smoke Exposure: Never Smokeless Tobacco: Never Alcohol Use Standard Drinks/Week Comments Never 0 (1 standard drink = 0.6 oz pur e alcohol) Housing Stability Answer Date Recorded What is your housing situation today? I have joy valdez 12/18/[address] you li ve. Do you have problems with any of the following? None of the above 12/18/2022 Food Insecurity Answer Date Recorded Within the past 12 months, y ou worried that your food would run out before you got money to buy more: Never True 12/18/2022 Within the past 12 months,th e food you bought just didn't last and you didn't have enough money to get more: Never True 11/2022 Transportation Answer Date Recorded In the past 12 months, has l ack of transportation kept you from medical appts, meetings, work or from getting things needed for daily living? Yes, it has kept me from medical appointments or getting medications. 12/18/2022 Utilities Answer Date Recorded In the past 12 months, has t he electric, gas, oil or water [employer] threatened to shut off services in your home? No 12/18/2022 Depression Answer Date Recorded Patient Health Questionnaire-2 Score 0 08/03/2022 Comments Unknown Sex and Gender Information Value [...] Description 05/23/2024 9:45 AM EDT Office Visit [facility] [address] [place], [place] [phone] Ria Franks ANP [address] [place], [place] [phone] documented as of this encounter Procedures Procedure Name Priority Date/Time Associated Diagnosis Comments PAP/HPV Routine 11/01/2020 documented in this encounter Results * Pap Smear (11/01/2020) Pap Negative for intraephithelial lesion or malignancy Negative for intraephithelial lesion or malignancy, Other HPV Undetected Historical Provider HEALTH MAINTENANCE Final Result documented in this encounter Visit Diagnoses Not on filedocumented in this encounter Care Teams Film Laboratory Technician Relationship Specialty Start Date End Date Ria Franks ANP [address] [place] [address] [phone] PCP - General Family Medicine 02/27/20 documented as of this encounter
--- OUTSIDE RECORDS SUMMARY | 2024-04-21 11:53 | XMS_ITS | Encounter Summary ---
Author Organization [employer] Address [address] [place] [address] [address] [place] [address] Care Team Providers Care Design Printing Machine Set Up Operator Name Role Phone Cara Mcknight Primary Care Provider [phone] Reason for Referral * Consultation (Urgent) - Closed Specialty Diagnoses / Procedures Referred By Ruby medley Referred To Contact Obstetrics and Gynecology Diagnoses Early stage of Cara Mcknight ANP [address] [place] [address] Phone: tel: fax: [facility] Robert VELASQUEZ [address] [place] [address] Phone: tel: Referral ID Status Reason Start Date Expiration Date V isits Requested Visits Authorized [id number] Closed Specialty Services Required 04/04/2024 04/04/2025 30 30 Reason for Visit * Reason Onset Date Comments Lab Orders 04/01/2024 Encounter Details Date Type Department Care Team (Late st Contact Info) Description 04/01/2024 Telephone [facility] [address] [place] [address] Cara Mcknight ANP [address] [place] [address] Lab Orders Social History Tobacco Use Types Packs/Day Years [...] AM EDT documented as of this encounter Miscellaneous Notes * Addendum Note - RICHARD Whitley - 04/03/2024 1:04 PM ESTAddended by: CARA MCKNIGHT on: 04/03/2024 01:04 PM Modules accepted: Orders * Result Encounter Note - RICHARD Whitley - 04/03/2024 1:04 PM EST Called pt to discuss lab result for +hcg. LMP 02/27/24. Would like to cont pregnency. Taking prenatals. Would like referral to [facility]'s. Have placed. [employer] utilized for Armenian interpretation. * Telephone Encounter - Mary Alice Driscoll RN - 04/01/2024 1:39 PM EST Telephone call to pt using [facility] sewing machine operator #[id number]. Pt reports having some symptoms including breast tenderness. She states she took a home test and it was positive and is asking forblood work to confirm , states last menstrual period was 02/27/24. She states she no longer has any vitamins and said I would need more requesting some. When asked if she would like OB referral to particular place, pt states she wanted to know results of recent pelvic ultrasound,advised her 03/28/24 pelvic US ordered by Dr Carranza and she should contact their office to discuss results. Reviewed hours of operation for pharmacy with pt at [facility]. Spoke to PCP in office, per request will pend bloodwork and call pharmacy to request refill on prenatals. Called [facility] to request refill, was advised by pharmacist that the Rx on file for gummies is not covered by insurance because it is over the counter med but if the Rx is written for tablets with 1mg folic acid , it should be covered by insurance. Will send as FYI to PCP. * Telephone Encounter - Gregg Cassidy - 04/01/2024 12:46 PM EST Tc from pt stating that she took a test from home and test came out positive. Pt is requesting a lab order for a blood test test. Pt does speak pakistani. documented in this encounter Plan of Treatment Upcoming Encounters Date Type Department Care Team (Late st Contact Info) Description 05/23/2024 9:45 AM EDT Office Visit [facility]IC[facility] [address] [place] [address] Cara Mcknight ANP [address] [place] [address] Scheduled Referrals Name Type Priority Associated Diagnoses Order Schedule Referral to Obstetrics / Gynecology Outpatient Referral Urgent Early stage of Expected: 04/03/2024 (Approximate), Expires: 04/03/2025 documented as of this encounter Procedures Procedure Name Priority Date/Time Associated Diagnosis Comments HCG, TOTAL, QN Routine 04/03/2024 11:24 AM EST Family planning documented in this encounter Results * hCG, Total, Quantitative (04/03/2024 11:24 AM EST) HCG Quantitative 2,287 mIU/mL [facility] Comment:Weeks post LMP Appro ximate hCG(Last Menstrual Period) Range (mIU/ml)3 - 4 weeks 9 - 1304 - 5 weeks 75 - 2,6005 - 6 weeks 850 - 20,8006 - 7 weeks 4000 - 100,2007 - 12 weeks 11,500 - 289,45364 - 16 weeks 18,300 - 137,19791 - 29 weeks (2nd trimester) 1,400 - 53,23400 - 41 weeks (3rd trimester) 940 - 60,000The Cole B- hCG assay is used for the early detection ofpregnancy; it cannot be used to diagnose any conditionunrelated to . If a B-hCG level is not supportedby the clinical evidence, results should be confirmed by analternative method (qualitative urine hCG, for example). Blood Venous blood specimen / Unknown 04/03/2024 11:24 AM EST 04/03/2024 11:24 AM EST Cara Mcknight ANP LAB BLOOD ORDERABLES Final Resul t [facility] [address] [place] [address] [phone] documented in this encounter Visit Diagnoses Diagnosis Early stage of - Primary state, incidental Family planning Other general counseling and advice for contraceptive management documented in this encounter Additional Health Concerns Assessment Noted Time PHQ-9 Depression Total Score: 5 10/05/19 24 9:09 AM EDT documented as of this encounter Care Teams Design Printing Machine Set Up Operator Relationship Specialty Start Date End Date Cara Mcknight ANP [address] [place] [address] PCP - General Family Medicine 02/27/20 documented as of this encounter
--- OUTSIDE RECORDS SUMMARY | 2024-04-21 11:53 | XMS_ITS | Encounter Summary ---
Author Organization [employer] Address [address] [place] [address] Care Team Providers Care Jacquard Fixer Name Role Phone Golden Ria RAMOS Primary Care Provider [phone] Encounter Details Date Type Department Care Team (Late st Contact Info) Description 04/02/2024 Telephone [facility] [address] [place] [address] Ira Hawthorne CNP [address] [place] [address] Social History Tobacco Use Types Packs/Day Years [...] as of this encounter Miscellaneous Notes * Telephone Encounter - Ira Hawthorne CNP - 04/02/2024 10:17 AM EST Called pt to review lab results, emphasized importance of vitamin supplementation d/t . PCP sent it over yesterday. Pt agreeable and all questions and concerns addressed. Used Coating Mixer Supervisor [id number] from [employer] documented in this encounter Plan of Treatment Upcoming Encounters Date Type Department Care Team (Late st Contact Info) Description 05/23/2024 9:45 AM EDT Office Visit [facility] MEDICINE [address] [place] [address] Ria Franks ANP [address] [place] [address] documented as of this encounter Visit Diagnoses Not on filedocumented in this encounter Additional Health Concerns Assessment Noted Time PHQ-9 Depression Total Score: 5 10/05/19 24 9:09 AM EDT documented as of this encounter Care Teams Jacquard Fixer Relationship Specialty Start Date End Date Ria Franks ANP [address] [place] [id number] PCP - General Family Medicine 02/27/20 documented as of this encounter
--- OUTSIDE RECORDS SUMMARY | 2024-04-21 11:53 | XMS_ITS | Encounter Summary ---
Author Organization [employer] Address [address] [place] [address] Care Team Providers Care Event Security Officer Name Role Phone Ria Franks Primary Care Provider Reason for Visit * Reason Comments Med Refill Encounter Details Date Type Department Care Team (Late st Contact Info) Description 10/03/2022 Refill [facility] [address] [place] [phone] Carmine Roy, MEDICAL ASSISTING PROGRAM DIRECTOR Heartburn Social History Tobacco Use Types Packs/Day Years Used Date Smoking Tobacco: Never Passive Smoke Exposure: Never Smokeless Tobacco: Never Alcohol Use Standard Drinks/Week Comments Never 0 (1 standard drink = 0.6 oz pur e alcohol) Depression Answer Date Recorded Patient Health Questionnaire-2 [...] Description 05/23/2024 9:45 AM EDT Office Visit [facility] [address] [place] [phone] Ria Franks ANP [address] [place] [address] documented as of this encounter Visit Diagnoses Diagnosis Heartburn documented in this encounter Care Teams Event Security Officer Relationship Specialty Start Date End Date Ria Franks ANP [address] [place] [address] PCP - General Family Medicine 02/27/20 documented as of this encounter
--- OUTSIDE RECORDS SUMMARY | 2024-04-21 11:53 | XMS_ITS | Clinical Summary ---
Author Organization [facility] Address [address] [place] [address] Care Team Providers Care Shellfish Farming Supervisor Name Role Phone Unknown Primary Care Provider [phone] Allergies No known active allergies Medications No known medications Social History Tobacco Use Types Packs/Day Years Used Date Smoking Tobacco: Never Assessed Sex and Gender Information Value Date Recorded Sex Assigned at Not on file Gender Identity Not on file Sexual Orientation Not on file Last Filed Vital Signs Vital Sign Reading Time Taken Comments Blood Pressure 144/88 10/14/2018 1:16 PM EDT Pulse 67 10/14/2018 1:16 PM EDT Temperature 36 ??C (96.8 ??F) 10/14/2018 1:16 PM EDT Respiratory Rate 18 10/14/2018 1:16 PM EDT Oxygen Saturation 100% 10/14/2018 1:16 PM EDT Inhaled Oxygen Concentration - - Weight - - Height - - Body Mass Index - - Plan of Treatment Health Maintenance Due Date Last Done Comments Hepatitis C Virus Screening 1990 HIV Screening 07/20/2003 DTaP/Tdap/Td Vaccines (1 - Tdap) 2009 Hepatitis B Vaccines (1 of 3 - 19+ 3-dose series) 2009 Pap Smear (Ages 21-65) 07/20/2011 Influenza Vaccine 10/11/2023 COVID-19 Vaccine ( - 2023-2 5 season) 2023 HPV Vaccines Aged Out No longer eligi ble based on patient's age to complete this topic Pneumococcal Vaccine: Pediat brayan (0-5 Years) and At-Risk Patients (6 to 49 Years) Aged Out No longer eligible b ased on patient's age to complete this topic Care Teams Shellfish Farming Supervisor Relationship Specialty Start Date End Date Unknown Unknow Provider Address PCP - General 10/14/18
--- OUTSIDE RECORDS SUMMARY | 2024-04-21 11:53 | XMS_ITS | Clinical Summary ---
Author Organization [employer] Address [address] [place] [address] [address] [place] [address] Care Team Providers Care Cardiovascular Technician Name Role Phone Cara Mcknight RICHARD Primary Care Provider [phone] Allergies No known active allergies Medications Vitamin D-[address] 25 MCG (1000 UT) tabletIndication s:Vitamin D deficiency TAKE 1 TABLET (25 MCG) BY MOUTH IN THE MORNING 90 tablet 1 023 Active albuterol 108 (90 Base) MCG/ACT inhaler Inhale 2 puffs every 6 (six) hours if needed. Active senna-docusate sodium (Senokot-S) 8.6-50 MG tabletIndication s:Constipation, unspecified constipation type Take 1-2 tablets once daily for constipation 90 tablet 3 023 Active polyethylene glycol, PEG, 3350 (MiraLax) 17 GM/SCOOP powderIndication s:Constipation, unspecified constipation type 17G in water or juice as directed on package 1-2 times daily as needed for constipation 578 g 2 023 Active omeprazole (PriLOSEC) [address] capsule Take 1 capsule by mouth Once per day. 024 Active acetaminophen (Tylenol) 325 MG tablet Take 650 mg by mouth every 6 (six) hours if needed. 021 Active Calcium Polycarbophil (fiber) 625 MG tablet start with 1 tablet twice daily, slowly increase to 2 tablets twice daily, may take up to 3 times daily if necessary; take with full glass of water Active Vit-Fe Fumarate-FA ( Vitamins) 28-0.8 MG tabletIndication s:Family Planning Take 1 tablet by mouth Once per day. 90 tablet 3 025 2025 Active MV & Min w/FA-DHA ([facility] Gummy) 0.4-25 MG chewable tabletIndication s:Family planning CHEW 1 GUMMY DIRECTED ON CONTAINER DAILY OTC NOT COVERED 90 tablet 3 024 2024 Discontinued(D uplicate order (will not trigger notification to Pharmacy)) naproxen (Naprosyn) 500 MG tabletIndication s:Low back pain radiating to both legs TAKE 1 TAB TWICE DAILY WITH FOOD FOR 1 WEEK, MAY REPEAT NEEDED FOR BACK PAIN FLARE 60 tablet 024 2024 Discontinued(I neffective) ibuprofen 600 MG tabletIndication s:Low back pain radiating to both legs Take 1 tablet (600 mg) by mouth 3 times daily for 14 days. 42 tablet 025 2024 acetaminophen (Tylenol Extra Strength) 500 MG tabletIndication s:Low back pain radiating to both legs Take 1 tablet (500 mg) by mouth every 6 (six) hours if needed for mild pain for up to 10 days. 30 tablet 025 2024 Active Problems Problem Noted Date Diagnosed Date Non-toxic multinodular goiter 10/05/2023 Overview (10/05/2023): Follows [facility] Endocrinology FNA 07/19/23 Thyroid, right nodule, fine needle aspiration: Benign (Noxen category II) Status post cholecystectomy 10/05/2023 Gastroesophageal reflux disease 10/05/2023 Overview (10/05/2023): Follows [facility] GI, now PRN. H. pylori testing negative via their office. Omeprazole and trigger avoidance helps. Folliculitis due to Dermodex 08/17/2017 Rosacea 08/17/2017 Infertility due to oligo-ovulation 07/03/2016 Mild intermittent asthma 07/03/2016 PCOS (polycystic ovarian syndrome) 07/03/2016 Overview (10/05/2023): Menses regulated s/p metformin for short time via endo Resolved Problems Problem Noted Date Diagnosed Date Resolved Date Acute cystitis 08/02/2022 10/05/2023 Acute cholecystitis 07/23/2020 10/05/19 24 Encounters Date Type Department Care Team Description 04/02/[address] [address] Ira Hawthorne CNP 04/01/[address] [address] Cara Mcknight ANP Lab Orders 03/28/2024 10:30 AM EST Office Visit [address] [address] Ira Hawthorne CNP Healthcare maintenance (Primary Dx); Low back pain radiating to both legs; Chronic fatigue; Left hip pain 03/28/2024 Orders Only [facility] External Provider, [facility] 03/19/2024 Patient Outreach [address] [address] Cara Mcknight ANP Pre-visit Planning (SDOH screening was completed on 06/05/2023) 02/29/2024 Telephone [facility] [address] [place] [phone] Cara Mcknight ANP Labs 02/28/[address] [address] Cara Mcknight ANP Chart Prep 02/28/[address] [address] Cara Mcknight ANP Nurse Triage 01/25/2024 Orders Only [facility] External Provider, [facility] from Last 3 Months Immunizations Name Administration Dates Next Due DTaP 02/24/2012, 5,07/10/1994,03/13,02/10/1991,1990 Hep B, adult 11/11/1996,09/08/1996,06/25/1996 Hib (HbOC) 07/10/1992, 2,02/10/1991,09/09 IPV 01/24/1995, 5,03/13/1991,09/09 Influenza injectable quadriv alent preservative free 12/08/2022,06/25/2015 Influenza, IIV3, injectable 03/02/2011 MMR 01/24/1995,07/25/1991 Pneumococcal Polysaccharide PPSV23 03/02/2011 Pneumococcal, Unspecified 03/02/2011 TD (adult), 2 Lf tetanus tox oid, preservative free, adsorbed 08/25/2021,10/22/2003 Tdap 03/02/2011 Social History Tobacco Use Types Packs/Day Years Used Date Smoking Tobacco: Never Passive Smoke Exposure: Never Smokeless Tobacco: Never Tobacco Cessation:Counseling Given: Not Answered Alcohol Use Standard Drinks/Week Comments Never 0 [...] Orientation Straight 01/09/2022 10 :17 AM EDT Last Filed Vital Signs Vital Sign Reading Time Taken Comments Blood Pressure 116/72 03/28/2024 10:42 AM EST Pulse 72 03/28/2024 10:42 AM EST Temperature 37.1 ??C (98.7 ??F) 03/28/2024 10:[address] Respiratory Rate 16 03/28/2024 10:42 AM EST Oxygen Saturation 98% 03/28/2024 10:42 AM EST Inhaled Oxygen Concentration - - Weight 109 kg (239 lb 6.4 oz) 03/28/2024 10:42 A M EST Height 165.1 cm (5' 5 ) 06/15/2023 11:14 AM EDT Body Mass Index 39.84 06/15/2023 11:14 AM EDT Plan of Treatment Upcoming Encounters Date Type Department Care Team (Late st Contact Info) Description 05/23/2024 9:45 AM EDT Office Visit [facility] [address], [place] [phone] Cara Mcknight, ANP [address], [place] [phone] Health Maintenance Due Date Last Done Comments Alcohol/Substance Use Screening 2002 Family Planning (PISQ) 2005 Pneumococcal Vaccine: Pediatrics (0 to 5 Years) and At-Risk Patients (6 to 49) Years) (2 of 2 - PCV) 03/02/2012 03/02/2011, 03/02/2011 COVID-19 Vaccine ( season) 2023 12/10/2020, 11/11/2020 Influenza Vaccine (#1) 2023 , 06/25/2015, 03/02/2011 SDOH Screening 06/04/2024 06/05/2023 Depression Screening 10/04/2024 10/05/2023, 10/05/19 24 Tobacco Screening 10/04/2024 10/05/2023 Cervical Cancer Screening 11/01/2025 HPV/Cotest 11/01/2025 11/01/2020, 08/2 05/2020, 11/01/2020 Pap Smear 11/01/2025 11/01/2020 Lipid Panel 06/14/2028 06/15/2023, 07/08/2021 DTaP/Tdap/Td Vaccines (9 - Td or Tdap) 08/26/2031 08/25/2021, 02/24/2012, 03/02/2011, Additional history exists Zoster Vaccines (1 of 2) 2040 RSV Patients and Patients Aged 60 years or older (1 - 1-dose 75+ series) 2065 HIB Vaccines Completed 07/10/1992, 04/1991, 02/10/1991, Additional history exists IPV Vaccines Completed 01/24/1995, 03/1994, 03/13/1991, Additional history exists Hepatitis B Vaccines Completed 11/11/1996, 09/08/1996, 06/25/1996 HIV Screening Completed 11/23/2022, 06/2021, 01/13/2022, Additional history exists Hepatitis C Screening Completed 11/23/2022 , 01/13/2022, 01/13/2022, Additional history exists HPV Vaccines Aged Out No longer eligi ble based on patient's age to complete this topic Hepatitis A Vaccines Aged Out No long er eligible based on patient's age to complete this topic Meningococcal Vaccine Aged Out No geovany kenney eligible based on patient's age to complete this topic RSV under 20 months Aged Out No longe r eligible based on patient's age to complete this topic Rotavirus Vaccines Aged Out No longer eligible based on patient's age to complete this topic Procedures Procedure Name Priority Date/Time Associated Diagnosis Comments HCG, TOTAL, QN Routine 04/03/2024 11:24 AM EST Family planning US PELVIS TRANSVAGINAL Routine 03/28/2024 2:12 PM EST XR LUMBAR SPINE COMPLETE 4+ VIEWS Routine 03/28/2024 12:11 PM EST Low back pain radiating to both legs XR HIP 2 OR 3 VIEWS LEFT Routine 03/28/2024 12:11 PM EST Left hip pain VITAMIN B12/FOLATE, SERUM PANEL Routine 03/28/2024 11:45 AM EST Chronic fatigue TSH W/REFLEX TO FT4 Routine 03/28/2024 1 1:45 AM EST Chronic fatigue IRON AND TOTAL IRON BINDING CAPACITY Routine 03/28/2024 11:45 AM EST Chronic fatigue VITAMIN D,25-OH,TOTAL,IA Routine 03/28/2024 11:45 AM EST Healthcare maintenance CBC WITH AUTO DIFFERENTIAL Routine 03/28/2024 11:45 AM EST Healthcare maintenance US PELVIS TRANSVAGINAL Routine 01/25/2024 11:48 AM EST LIPID PANEL, STANDARD Routine 06/15/2023 10:40 AM EDT HEPATITIS C ANTIBODY Routine 11/23/2022 9:25 AM EDT HIV ANTIBODY/ANTIGEN ([place] DPH) Routine 11/23/2022 9:25 AM EDT HM PAP/HPV Routine 11/01/2020 from Last 3 Months or Most Recently Relevant to Health Maintenance Results * hCG, Total, Quantitative (04/03/2024 11:24 AM EST) HCG Quantitative 2,287 mIU/mL [facility] Comment:Weeks post LMP Appro ximate hCG(Last Menstrual Period) Range (mIU/ml)3 - 4 weeks 9 - 1304 - 5 weeks 75 - 2,6005 - 6 weeks 850 - 20,8006 - 7 weeks 4000 - 100,2007 - 12 weeks 11,500 - 289,80311 - 16 weeks 18,300 - 137,23743 - 29 weeks (2nd trimester) 1,400 - 53,68736 - 41 weeks (3rd trimester) 940 - [...] 11:24 AM EST 04/03/2024 11:24 AM EST us Cara Mcknight [facility] LAB BLOOD ORDERABLES Final Resul t [facility] [address] [place] [address] [phone] * US Pelvis Transvaginal (03/28/2024 2:12 PM EST) Only the most recent of2 resultswithin the time period is included. Anatomical Region Laterality Modality Pelvis Ultrasound 03/28/2024 2:12 PM EST Narrative 03/28/2024 3:21 PM EST ? [facility] ?[address] ?[place] [address] ? Ultrasound Report ? Signed ? Patient: Beatriz Martinez ?M ?? R#: [id number] ? : 1990 ?Acct:[id number] ? Age/Sex: 33 / F ?ADM Date: 03/28/24 ? Loc: HO.US ? Attending Dr: Tien Carranza MD ? Ordering Physician: Tien Carranza MD ?? Date of Service: 03/28/24 ?? Procedure(s): US pelvic and transvaginal ?? Accession Number(s): [id number] ? cc: CARA MCKNIGHT NP; Tien Carranza [...] 03:18 PM EST RP ? Dictated By: ?Santiago Schofield MD ? Signed By: ?<Electronically signed by Santiago Schofield MD in OV> ?03/28/24 1518 ? DD/ 1412 ? TD/TT: 03/28/24 1428 ? Chief Inspector: MSM ? Procedure Note Stacey, Cinthia - 03/28/2024 [place] [address] Ultrasound Report Signed Patient: Beatriz Martinez AM R#: [id number] : 1990Acct:[id number] Age/Sex: 33 / FADM Date: 03/28/24 Loc: HO.US Attending Dr: Tien Carranza MD Ordering Physician: Tien Carranza MD Date of Service: 03/28/24 Procedure(s): US pelvic and transvaginal Accession Number(s): [id number] cc: CARA MCKNIGHT NP; Tien Carranza MD EXAMINATION: US PELVIS CLINICAL [...] by: Santiago Schofield MD 03/28/2024 03:18 PM EST Dictated By: Santiago Schofield MD Signed By: <Electronically signed by Santiago Schofield MD in OV> 03/28/24 1518 DD/ 1412 TD/TT: 03/28/24 1428 Chief Inspector: NASREEN us [facility] External Provider IMG US PROCEDURES Edited Result - Final * XR Hip 2 or 3 Views Left (03/28/2024 12:11 PM EST) Anatomical Region Laterality Modality Lower Extremities, Hip Left Radiograp hic Imaging 03/28/2024 12:1 1 PM EST Narrative 03/28/2024 12:48 PM EST ? [facility] ?[address] ?[place] [address] ?XRay Report ? Signed ? Patient: Holder Shah,Beatriz A ?M ?? R#: [id number] ? : 1990 ?Acct:[id number] ? Age/Sex: 33 / F ?ADM Date: 01/17/25 ? Loc: HO.HHCL ? Attending Dr: Ira Hawthorne PANTS BUSHELER ? Ordering Physician: Ira Hawthorne ?? Date of Service: 03/28/24 ?? Procedure(s): XR hip LT min 2V ?? Accession Number(s): [id number] ? cc: Ira Hawthorne ? EXAMINATION: ?? XR HIP, LEFT ? CLINICAL INFORMATION: ?? Pt has chronic L hip pain, positive FABIR and FADER ? COMPARISON: ?? None available. ? TECHNIQUE: ?? Two views of the left hip. ? FINDINGS: ?? No fracture. Alignment is anatomic. Hip joint space is maintained. ?? Normal acetabular coverage. No plain film evidence of femoral ?? acetabular impingement. ?? Soft tissues are unremarkable. ? XR/XR hip LT min 2V ?? IMPRESSION: ?? Normal left hip. ? Electronically signed by: ??Cosmo Medina MD ??03/28/2024 12:45 PM EST RP ? Dictated By: ?Cosmo Medina MD ? Signed By: ?<Electronically signed by Cosmo Medina MD in OV> ?03/28/24 1245 ? DD/ 1211 ? TD/TT: 03/28/24 1237 ? Chief Inspector: ? Procedure Note Stacey, Image - 03/28/[address] [address] XRay Report Signed Patient: Beatriz Martinez AM R#: [id number] : 1990Acct:[id number] Age/Sex: 33 / FADM Date: 03/28/24 Loc: HO.HHCL Attending Dr: Ira Hawthorne PANTS [employer]HELER Ordering Physician: Ira Hawthorne Date of Service: 03/28/24 Procedure(s): XR hip LT min 2V Accession Number(s): [id number] cc: Ira Hawthorne EXAMINATION: XR HIP, LEFT CLINICAL INFORMATION: Pt has chronic L hip pain, positive FABIR and FADER COMPARISON: None available. TECHNIQUE: Two views of the left hip. FINDINGS: No fracture. Alignment is anatomic. Hip joint space is maintained. Normal acetabular coverage. No plain film evidence of femoral acetabular impingement. Soft tissues are unremarkable. XR/XR hip LT min 2V IMPRESSION: Normal left hip. Electronically signed by: Cosmo Medina MD 03/28/2024 12:45 PM EST Dictated By: Cosmo Medina MD Signed By: <Electronically signed by Cosmo Medina MD in OV> 03/28/24 1245 DD/ 1211 TD/TT: 03/28/24 1237 Chief Inspector: Danielfrandy Hawthorne [facility] IM[facility] XR PROCEDURES Edited Result - Final * XR Lumbar Spine Complete 4+ Views (03/28/2024 12:11 PM EST) Anatomical Region Laterality Modality Spine, L-spine Radiographic Stacy ging 03/28/2024 12:1 1 PM EST Narrative 03/28/2024 12:52 PM EST ? [facility] ?[address] ?[place] [address] ?XRay Report ? Signed ? Patient: Beatriz Martinez ?M ?? R#: [id number] ? : 1990 ?Acct:[id number] ? Age/Sex: 33 / F ?ADM Date: 03/28/24 ? Loc: HO.HHCL ? Attending Dr: Ira Hawthorne P[employer]HELER ? Ordering Physician: Ira Hawthorne ?? Date of Service: 03/28/24 ?? Procedure(s): XR lumbar spine 4V min ?? Accession Number(s): [id number] ? cc: Ira Hawthorne ? EXAMINATION: ?? XR LUMBOSACRAL SPINE ? CLINICAL INFORMATION: ?? having L hip pain would like to evaluate LBP as well. ? COMPARISON: ?? None available. ? TECHNIQUE: ?? AP, lateral, cone-down lateral, and both oblique views of the ?? lumbosacral spine. ? FINDINGS: ?? Transitional lumbosacral anatomy noted with 6 nonrib-bearing vertebral ?? bodies. The last fully formed vertebral body will be considered L5. If ?? intervention is considered, confirmation of level counting is ?? recommended. ? No scoliosis. Normal lordosis. Normal mineralization. No compression ?? deformities, fractures, or suspicious bone lesions. ?? No subluxations. ? Disc spaces appear normal. Facets are normally aligned. No pars defects. ?? The imaged sacrum and SI joints appear normal. ? There is no soft tissue abnormality. Cholecystectomy clips noted. ? XR/XR lumbar spine 4V min ?? IMPRESSION: ?? 1. Transitional lumbosacral anatomy as discussed. Otherwise normal exam. ? Electronically signed by: ??Cosmo Medina MD ??03/28/2024 12:49 PM EST RP ?? Workstation: [id number] ? Dictated By: ?Cosmo Medina MD ? Signed By: ?<Electronically signed by Cosmo Medina MD in OV> ?03/28/24 1249 ? DD/ 1211 ? TD/TT: 03/28/24 1237 ? Chief Inspector: ? Procedure Note Donserjiointerpreter, Image - 03/28/2024 [place] [address] XRay Report Signed Patient: Beatriz Martinez AM R#: [id number] : 1990Acct:[id number] Age/Sex: 33 / FADM Date: 03/28/24 Loc: HO.HHCL Attending Dr: Ira Hawthorne P[employer]ER Ordering Physician: Ira Hawthorne Date of Service: 03/28/24 Procedure(s): XR lumbar spine 4V min Accession Number(s): [id number] cc: Ira Hawthorne EXAMINATION: XR LUMBOSACRAL SPINE CLINICAL INFORMATION: having L hip pain would like to evaluate LBP as well. COMPARISON: None available. TECHNIQUE: AP, lateral, cone-down lateral, and both oblique views of the lumbosacral spine. FINDINGS: Transitional lumbosacral anatomy noted with 6 nonrib-bearing vertebral bodies. The last fully formed vertebral body will be considered L5. If intervention is considered, confirmation of level counting is recommended. No scoliosis. Normal lordosis. Normal mineralization. No compression deformities, fractures, or suspicious bone lesions. No subluxations. Disc spaces appear normal. Facets are normally aligned. No pars defects. The imaged sacrum and SI joints appear normal. There is no soft tissue abnormality. Cholecystectomy clips noted. XR/XR lumbar spine 4V min IMPRESSION: 1. Transitional lumbosacral anatomy as discussed. Otherwise normal exam. Electronically signed by: Cosmo Medina MD 03/28/2024 12:49 PM EST Dictated By: Cosmo Medina MD Signed By: <Electronically signed by Cosmo Medina MD in OV> 03/28/24 1249 DD/ 1211 TD/TT: 03/28/24 1237 Chief Inspector: [facility] XR PROCEDURES Edited Result - Final * (ABNORMAL) Vitamin D, 25-Hydroxy, Total, Immunoassay (03/28/2024 11:45 AM EST) Vitamin D 25-OH Total 17.6(L) >30 ng/mL [facility] Comment:Health Based Referen ce Values*< 20 ng/mL Omtjptxpo85-72 ng/mL Insufficient> 30 ng/mL Sufficient*Kenyatta RODRIGUEZ. N Engl J Med. 2007;357:266-280Care must be taken in interpreting Vitamin D results fromdifferent laboratories and methodologies. Published datademonstrated that results from patients undergoinghemodialysis may show a negative bias when tested withvarious automated 25-OH vitamin D assays when compared toLC-MS/MS.When testing samples from patients whose predominant form ofVitamin D is Vitamin D2, such as patients receiving VitaminD2 supplementation, results that are subtherapeutic shouldbe confirmed with another method such as LC-MS/MS. Blood Venous blood specimen / Unknown 03/28/2024 11:45 AM EST 03/28/2024 1:06 PM EST [facility] LAB BLOOD ORDERABLES Felicitas l Result [facility] [address] [place] [phone] * Vitamin B12/Folate, Serum Panel (03/28/2024 11:45 AM EST) Vitamin B12 427 200 - 900 pg/mL [facility] Comment:NORMAL 200-900 PG/M L INDETERMINATE 160-199 PG/ML DEFICIENT < 160 PG/ML Folate 15.8 > or = 4.0 ng/mL [facility] Comment:Reference Values:> o r = 4.0 ng/mL< 4.0 ng/mL suggests folate deficiency Methotrexate, aminopterin and folinic acid(leucovorin) are chemotherapeutic agents whose molecularstructures are similar to folate; therefore, the Architectfolate assay cannot be used for patients using these drugs. Blood Venous blood specimen / Unknown 03/28/2024 11:45 AM EST 03/28/2024 1:06 PM EST [facility] LAB BLOOD ORDERABLES Felicitas l Result Performing Organization Address City/[facility]/ZIP Co de Phone Number [facility] [address] [place] [phone] * TSH W/Reflex to FT4 (03/28/2024 11:45 AM EST) TSH reflex Free T4 1.81 0.32 - 4.0 uIU/mL [facility] Blood Venous blood specimen / Unknown 03/28/2024 11:45 AM EST 03/28/2024 1:06 PM EST [facility] LAB BLOOD ORDERABLES Felicitas l Result Performing Organization Address [facility]/ZIP Co de Phone Number [facility] [address] [place] [phone] * (ABNORMAL) CBC auto differential (03/28/2024 11:45 AM EST) White Blood Count 8.2 4.8 - 10.8 X10*3/uL [facility] Red Blood Count 5.38 4.20 - 5.50 X10*6/uL [facility] Hemoglobin 12.9 12.0 - 16.0 g/dl [facility] Hematocrit 40.6 37.0 - 47.0 % [facility] Mean Corpuscular Volume 75.5(L) 80.0 - 98.0 fL [facility] Mean Corpuscular Hemoglobin 24.0(L) 27.0 - 33.0 pg [facility] Mean Corpuscular HGB Conc 31.8 31.0 - 35.0 g/dl [facility] Red Cell Distribution Width 16.7(H) 11.0 - 16.0 % [facility] Platelet Count 319 160 - 400 X10*3/uL [facility] Mean Platelet Volume 10.9 9.4 - 12.3 fL [facility] Neutrophils Percent Auto 67.7 45 - 73 % [facility] Imm Gran Pct Auto 0.4 0.0 - 0.4 % [facility] Lymphocytes Percent Auto 22.6 20 - 40 % [facility] Monocytes Percent Auto 7.6 2 - 11 % [facility] Eosinophils Percent Auto 1.2 0 - 4 % [facility] Basophils Percent Auto 0.5 0 - 2 % [facility] NRBC Pct Auto 0.0 0.0 - 0.2 /100WBC [facility] Neutrophils Absolute Auto 5.5 2.0 - 8.3 x10*3/uL [facility] Imm Gran Abs Auto 0.03 0.00 - 0.03 X10*3/uL [facility] Lymphocytes Absolute Auto 1.8 1.2 - 4.9 X10*3/uL [facility] Monocytes Absolute Auto 0.6 0.1 - 1.2 X10*3/uL [facility] Eosinophils Absolute Auto 0.1 0.0 - 0.4 X10*3/uL [facility] Basophils Absolute Auto 0.0 0.0 - 0.2 X10*3/uL [facility] NRBC Abs Auto 0.000 0.0 - 0.012 X10*3/uL [facility] Blood Venous blood specimen / Unknown 03/28/2024 11:45 AM EST 03/28/2024 1:06 PM EST us Ira Hawthorne [facility] LAB BLOOD ORDERABLES Felicitas l Result [facility] [address] [place] [phone] * Iron And Total Iron Binding Capacity (03/28/2024 11:45 AM EST) Iron 67 30 - 160 mcg/dL [facility] Total Iron Binding Capacity 293 228 - 428 mcg/dL [facility] Percent Iron Saturation 23 15 - 50 % [facility] Unsaturated Iron Binding 226 ug/dL [facility] Blood Venous blood specimen / Unknown 03/28/2024 11:45 AM EST 03/28/2024 1:06 PM EST [facility] BLOOD ORDERABLES Felicitas l Result [facility] [address] [place] [address] [phone] * Lipid Panel, Standard (06/15/2023 10:40 AM EDT) Triglycerides 46 <150 mg/dL [facility] Comment:Desirable Triglyceri de: less than 150 mg/dLBorderline High Triglyceride 150-199 mg/dLHigh Triglyceride: 200-499 mg/dLVery High Triglyceride: greater than or equal to 5OO mg/dL Cholesterol 178 <200 mg/dL [facility] Comment:Desirable Cholestero l: less than 200 mg/dLBorderline High Cholesterol: 200-239 mg/dLHigh Cholesterol: greater than 239 mg/dL LDL Cholesterol Calculated 96 <100 mg/dL [facility] Comment:Desirable LDL: less than 100 mg/dLNear Optimal/Above Optimal LDL: 110- 129 mg/dLBorderline High LDL: 130-159 mg/dLHigh LDL: 160-189 mg/dLVery High LDL: greater than or equal to 190 mg/dL HDL Cholesterol 73 >40 mg/dL [facility] Comment:Desirable HDL: great er than 40 mg/dL Note: This HDL assay may give artificially low results in patients with liver disease. 06/15/2023 10:4 0 AM EDT 06/15/2023 10:40 AM EDT Generic External Data Provider LAB BLOOD ORDERAB LES Final Result Performing Organization Address [facility]/ZIP Co de Phone Number [facility] [address] [place] [phone] * Hepatitis C Ab (11/23/2022 9:25 AM EDT) Hepatitis C Antibody Nonreactive Nonreactive [facility] Comment:Antibodies to HCV no t detected; does not exclude early acuteHCV infection. 11/23/2022 9:25 AM EDT 11/23/2022 9:25 AM EDT [facility] External Provider LAB BLO OD ORDERABLES Final Result Performing Organization Address [facility] Co de Phone Number [facility] [address] [place] [phone] * HIV Ab/Ag ([facility]) (11/23/2022 9:25 AM EDT) HIV AB/AG Nonreactive Nonreactive [facility] Comment:HIV-1 p24 Ag and/or HIV-1/HIV-2 Ab not detected.A test result that is nonreactive does not exclude thepossibility of exposure to or infection with HIV-1 and/orHIV-2. Nonreactive results in this assay for individualswith prior exposure to HIV-1 and/or HIV-2 may be due toantigen and antibody levels that are below the limit ofdetection of this assay.The [employer] HIV Ag/Ab Combo assay result andsupplemental assay results should be interpreted inconjunction with the patient's clinical presentation,history and other laboratory results. If the results areinconsistent with clinical evidence, additional testing issuggested to confirm the result. 11/23/2022 9:25 AM EDT 11/23/2022 9:25 AM EDT us Generic External Data Provider LAB BLOOD ORDERAB LES Final Result [facility] [address] [place] [address] [phone] * Hm Pap Smear (11/01/2020) Pap Negative for intraephithelial lesion or malignancy Negative for intraephithelial lesion or malignancy, Other HPV Undetected us Historical Provider HEALTH MAINTENANCE Final Result from Last 3 Months or Most Recently Relevant to Health Maintenance Insurance [employer] Care Teams Cardiovascular Technician Relationship Specialty Start Date End Date Cara Mcknight ANP [address] [place] [phone] PCP - General Family Medicine 02/27/20
--- OUTSIDE RECORDS SUMMARY | 2024-04-21 11:53 | XMS_ITS | Encounter Summary ---
Author Organization [employer] Address [address] [place] [address] [address] [place] [address] Care Team Providers Care Artificial Limb Fitter Name Role Phone Ria Franks Primary Care Provider [phone] Reason for Referral * Consultation (Routine) - Closed Specialty Diagnoses / Procedures Referred By Ruby medley Referred To Contact Physical Therapy Diagnoses Low back pain radiating to both legs Ira Hawthorne CNP [address] [place] [address] Phone: tel: fax: [facility] Physical Therapy [address] [place] [address] Phone: tel: fax: Referral ID Status Reason Start Date Expiration Date V isits Requested Visits Authorized [id number] Closed Specialty Services Required 03/28/2024 03/28/2025 20 20 Reason for Visit * Reason Comments Annual Exam Encounter Details Date Type Department Care Team (Late st Contact Info) Description 03/28/2024 10:30 AM EST Office Visit [facility] [address] [place] [address] Ira Hawthorne CNP [address] [place] [address] Healthcare maintenance (Primary Dx); Low back pain radiating to both legs; Chronic fatigue; Left hip pain Social History Tobacco Use Types Packs/Day Years [...] AM EDT documented as of this encounter Last Filed Vital Signs Vital Sign Reading [...] oz) 03/28/2024 10:42 A M EST Height - - Body Mass Index 39.84 06/15/2023 11:14 AM EDT documented in this encounter Progress Notes * Ira Hawthorne SEWAGE PLANT SUPERVISOR - 03/28/2024 10:30 AM EST Subjective Patient ID: Beatriz Shah is a 33 y.o. female who presents for an extended f/u on chronic fatigue and weakness. HPI Pt presents today describing that she feels pain and weakness in her whole body . Pt says she finds it hard to do daily activities such as washing dishes and working, she works in package distribution. She says that the pain is worse at night and when I asked her about where the pain is localized she pointed to her left hip that radiates down the left leg. She says that she takes naproxen but she finds it ineffective. She is also complaining of fatigue. She reports that she has a hx of anemia and Vitamin D deficiency. Interim history: Pt had appointment on 03/18/2024 [place] [facility] for plevic pain work up. Per provider note: ultrasound done on 01/25/24, read 03/17/2024 showed the following: IMPRESSION: 1. Right ovarian 2.7 x 1.8 x 2.6 cm cyst is mildly complex with possible thin septation and was not identified on the prior study. Correlation with clinical exam recommended to determine further management for this patient with pelvic and perineal pain. 2. Endometrial thickness 16mm 3. Small amount of fluid in lower uterine segment and within cervical canal as well as cul de sac. Plan: Pt was educated on treatment options including laparoscopy, ovarian cystectomy, oophorectemy vs. Repeating pelvic ultrasound in 2 weeks and following up with [facility] to discuss results.. At this time if cyst is larger and more complex plan is to refer to ASSIGNMENT OFFICER oncology. Review of Systems Constitutional: Positive for fatigue. Negative for activity change, appetite change, chills, diaphoresis, fever and unexpected weight change. HENT: Negative. Eyes: Negative. Respiratory: Negative for choking, shortness of breath and wheezing. Cardiovascular: Negative for chest pain, palpitations and leg swelling. Gastrointestinal: Negative. Genitourinary: Negative. Musculoskeletal: Positive for arthralgias. Negative for back pain, gait problem, joint swelling, myalgias, neck pain and neck stiffness. Skin: Negative. Neurological: Negative. Hematological: Negative. Psychiatric/Behavioral: Negative. Objective Vitals: 03/28/24 1042 BP: 116/72 Pulse: 72 Resp: 16 Temp: 98.7 ??F (37.1 ??C) SpO2: 98% Physical Exam Vitals reviewed. Constitutional: General: She is not in acute distress. Appearance: Normal appearance. She is not ill-appearing or toxic-appearing. HENT: Head: Normocephalic and atraumatic. Eyes: General: No scleral icterus. Right eye: No discharge. Left eye: No discharge. Extraocular Movements: Extraocular movements intact. Pupils: Pupils are equal, round, and reactive to light. Cardiovascular: Rate and Rhythm: Normal rate and regular rhythm. Pulses: Normal pulses. Heart sounds: Normal heart sounds. No murmur heard. No friction rub. No gallop. Pulmonary: Effort: Pulmonary effort is normal. No respiratory distress. Breath sounds: Normal breath sounds. No stridor. No wheezing, rhonchi or rales. Musculoskeletal: Cervical back: Normal. Thoracic back: Normal. Right hip: Normal. Left hip: Tenderness present. No deformity, lacerations, bony tenderness or crepitus. Decreased range of motion. Normal strength. Right knee: Normal. Left knee: Normal. Comments: Positive MRALY and FADIR Skin: General: Skin is warm and dry. Capillary Refill: Capillary refill takes less than 2 seconds. Neurological: General: No focal deficit present. Mental Status: She is alert and oriented to person, place, and time. Mental status is at baseline. Cranial Nerves: No cranial nerve deficit. Sensory: No sensory deficit. Motor: No weakness. Gait: Gait normal. Deep Tendon Reflexes: Reflexes normal. Assessment/Plan Diagnoses and all orders for this visit: Healthcare maintenance - CBC auto differential; Future - Vitamin D, 25-Hydroxy, Total, Immunoassay; Future Pt plans to complete above labwork to r/o anemia and vitamin D deficiency. Low back pain radiating to both legs - ibuprofen 600 MG tablet; Take 1 tablet (600 mg) by mouth 3 times daily for 14 days. - acetaminophen (Tylenol Extra Strength) 500 MG tablet; Take 1 tablet (500 mg) by mouth every 6 (six) hours if needed for mild pain for up to 10 days. - Referral to Physical Therapy; Future - XR Lumbar Spine Complete 4+ Views; Future No back pain red flags. Pain is localized to hip and appears to be osteoarthritic in nature. Will order x ray of lumbar spine as well as left hip Referral sent to Physical Therapy Ibuprofen 600mg TID sent for pain control, may alternate with tylenol prn. Pt will stop naproxen. Chronic fatigue - Iron And Total Iron Binding Capacity; Future - TSH W/Reflex to FT4; Future - Vitamin B12/Folate, Serum Panel; Future Ordered above labs to r/o thyroid disorder and vitamin b12/folate deficiency. Left hip pain - XR Hip 2 or 3 Views Left; Future [facility] PRESCHOOL EDUCATION DIRECTOR Attestation PRESCHOOL EDUCATION DIRECTOR Resident Attestation: Patient was seen and evaluated by Iar Hawthorne CNP, in collaboration with Joyce Burciaga MD who has reviewed my assessment and plan. I, Joyce Burciaga MD, have reviewed the resident's note and agree with the assessment & plan of care as documented above. documented in this encounter Plan of Treatment Upcoming Encounters Date Type Department Care Team (Late st Contact Info) Description 05/23/2024 9:45 AM EDT Office Visit [facility] [address] [place] [address] Ria Franks ANP [address] [place] [address] Scheduled Referrals Name Type Priority Associated Diagnoses Orde r Schedule Referral to Physical Therapy Outpatient Referral Routine Low back pain radiating to both legs Expected: 03/28/2024 (Approximate), Expires: 03/28/2025 documented as of this encounter Procedures Procedure Name Priority Date/Time Associated Diagnosis Comments XR HIP 2 OR 3 VIEWS LEFT Routine 03/28/2024 12:11 PM EST Left hip pain XR LUMBAR SPINE COMPLETE 4+ VIEWS Routine 03/28/2024 12:11 PM EST Low back pain radiating to both legs VITAMIN D,25-OH,TOTAL,IA Routine 03/28/2024 11:45 AM EST Healthcare maintenance VITAMIN B12/FOLATE, SERUM PANEL Routine 03/28/2024 11:45 AM EST Chronic fatigue TSH W/REFLEX TO FT4 Routine 03/28/2024 1 1:45 AM EST Chronic fatigue CBC WITH AUTO DIFFERENTIAL Routine 03/28/2024 11:45 AM EST Healthcare maintenance IRON AND TOTAL IRON BINDING CAPACITY Routine 03/28/2024 11:45 AM EST Chronic fatigue documented in this encounter Results * XR Lumbar Spine Complete 4+ Views (03/28/2024 12:11 PM EST) Anatomical Region Laterality Modality Spine, L-spine Radiographic Stacy ging 03/28/2024 12:1 1 PM EST Narrative 03/28/2024 12:52 PM EST ? [facility] ?[address] ?[place] [address] ?XRay Report ? Signed ? Patient: Beatriz Martinez ?M ?? R#: [id number] ? : 1990 ?Acct:[id number] ? Age/Sex: 33 / F ?ADM Date: 03/28/24 ? Loc: HO.HHCL ? Attending Dr: Ira Hawthorne PRESCHOOL EDUCATION DIRECTOR ? Ordering Physician: Ira Hawthorne ?? Date of Service: 03/28/24 ?? Procedure(s): XR lumbar spine 4V min ?? Accession Number(s): [id number] ? cc: Ira Hawthorne ? EXAMINATION: ?? [...] Medina MD ??03/28/2024 12:49 PM EST RP ? Dictated By: ?Cosmo Medina MD ? Signed By: ?<Electronically signed by Cosmo Medina MD in OV> ?03/28/24 1249 ? DD/ 1211 ? TD/TT: 03/28/24 1237 ? Paper Deliverer: ? Procedure Note Stacey, Cinthia - 03/28/[address] [address] XRay Report Signed Patient: Beatriz Martinez AM R#: [id number] : 1990Acct:[id number] Age/Sex: 33 / FADM Date: 03/28/24 Loc: HO.HHCL Attending Dr: Ira Hawthorne PRESCHOOL EDUCATION DIRECTOR Ordering Physician: Ira Hawthorne Date of Service: 03/28/24 Procedure(s): XR lumbar spine 4V min Accession Number(s): [id number] cc: Ira Hawthorne EXAMINATION: XR LUMBOSACRAL SPINE [...] Medina MD Signed By: <Electronically signed by Csomo Medina MD in OV> 03/28/24 1249 DD/ 1211 TD/TT: 03/28/24 1237 Paper Deliverer: Ira Hawthorne SEWAGE PLANT SUPERVISOR IMG XR PROCEDURES Edited Result - Final * XR Hip 2 or 3 Views Left (03/28/2024 12:11 PM EST) Anatomical Region Laterality Modality Lower Extremities, Hip Left Radiograp hic Imaging 03/28/2024 12:1 1 PM EST Narrative 03/28/2024 12:48 PM EST ? [facility] ?[address] ?[place] [address] ?XRay Report ? Signed ? Patient: Beatriz Martinez ?M ?? R#: [id number] ? : 1990 ?Acct:[id number] ? Age/Sex: 33 / F ?ADM Date: 03/28/24 ? Loc: HO.HHCL ? Attending Dr: Ira Hawthorne PRESCHOOL EDUCATION DIRECTOR ? Ordering Physician: Ira Hawthorne ?? Date of Service: 03/28/24 ?? Procedure(s): XR hip LT min 2V ?? Accession Number(s): [id number] ? cc: Ira Hawthorne ? EXAMINATION: ?? [...] DD/ 1211 ? TD/TT: 03/28/24 1237 ? Paper Deliverer: ? Procedure Note Stacey, Image - 03/28/[address] [address] XRay Report Signed Patient: Beatriz Martinez AM R#: [id number] : 1990Acct:[id number] Age/Sex: 33 / FADM Date: 03/28/24 Loc: HO.[facility] Attending Dr: Ira Hawthorne PRESCHOOL EDUCATION DIRECTOR Ordering Physician: Ira Hawthorne Date of Service: 03/28/24 Procedure(s): XR hip LT min 2V Accession Number(s): [id number] cc: Ira Hawthorne EXAMINATION: XR HIP, LEFT [...] 03/28/24 1245 DD/ 1211 TD/TT: 03/28/24 1237 Paper Deliverer: Ira Hawthorne SEWAGE PLANT SUPERVISOR IMG XR PROCEDURES Edited Result - Final * Vitamin B12/Folate, Serum Panel (03/28/2024 11:45 AM EST) Vitamin B12 427 200 - 900 pg/mL [facility] Comment:NORMAL 200-900 PG/ML INDETERMINATE 160-199 PG/ML DEFICIENT < 160 PG/ML Folate 15.8 > or = 4.0 ng/mL [facility] Comment:Reference Values:> o r = 4.0 ng/mL< 4.0 ng/mL suggests folate deficiency Methotrexate, aminopterin and folinic acid(leucovorin) are chemotherapeutic agents whose molecularstructures are similar to folate; therefore, the Architectfolate assay cannot be used for patients using these drugs. Blood Venous blood specimen / Unknown 03/28/2024 11:45 AM EST 03/28/2024 1:06 PM EST [facility] LAB BLOOD ORDERABLES Felicitas l Result Performing Organization Address City/[facility] Co de Phone Number [facility] [address] [place] [phone] * TSH W/Reflex to FT4 (03/28/2024 11:45 AM EST) TSH reflex Free T4 1.81 0.32 - 4.0 uIU/mL [facility] Blood Venous blood specimen / Unknown 03/28/2024 11:45 AM EST 03/28/2024 1:06 PM EST [facility] BLOOD ORDERABLES Felicitas l Result Performing Organization Address City/[facility]/ZIP Co de Phone Number [facility] [address] [place] [phone] * Iron And Total Iron Binding Capacity (03/28/2024 11:45 AM EST) Iron 67 30 - 160 mcg/dL [facility] Total Iron Binding Capacity 293 228 - 428 mcg/dL [facility] Percent Iron Saturation 23 15 - 50 % [facility] Unsaturated Iron Binding 226 ug/dL [facility] Blood Venous blood specimen / Unknown 03/28/2024 11:45 AM EST 03/28/2024 1:06 PM EST [facility] BLOOD ORDERABLES Felicitas l Result Performing Organization Address [facility] Co de Phone Number [facility] [address] [place] [phone] * (ABNORMAL) Vitamin D, 25-Hydroxy, Total, Immunoassay (03/28/2024 11:45 AM EST) Pathologist [facility] Vitamin D 25-OH Total 17.6(L) >30 ng/mL [facility] Comment:Health Based Referen ce Values*< 20 ng/mL Rzllcneus57-36 ng/mL Insufficient> 30 ng/mL Sufficient*Kenyatta RODRIGUEZ. N [...] AM EST 03/28/2024 1:06 PM EST [facility] BLOOD ORDERABLES Felicitas l Result Performing Organization Address [facility] Co de Phone Number [facility] [address] [place] [phone] * (ABNORMAL) CBC auto differential (03/28/2024 11:45 AM EST) Pathologist [facility] White Blood Count 8.2 4.8 - 10.8 X10*3/uL [facility] Red Blood Count 5.38 4.20 - 5.50 X10*6/uL [facility] Hemoglobin 12.9 12.0 - 16.0 g/dl [facility] Hematocrit 40.6 37.0 - 47.0 % [facility] Mean Corpuscular Volume 75.5(L) 80.0 - 98.0 fL [facility] Mean Corpuscular Hemoglobin 24.0(L) 27.0 - 33.0 pg [facility] Mean Corpuscular HGB Conc 31.8 31.0 - 35.0 g/dl [facility] Red Cell Distribution Width 16.7(H) 11.0 - 16.0 % [facility] Platelet Count 319 160 - 400 X10*3/uL [facility] Mean Platelet Volume 10.9 9.4 - 12.3 fL [facility] Neutrophils Percent Auto 67.7 45 - 73 % [facility] Imm Gran Pct Auto 0.4 0.0 - 0.4 % [facility] Lymphocytes Percent Auto 22.6 20 - 40 % [facility] Monocytes Percent Auto 7.6 2 - 11 % [facility] Eosinophils Percent Auto 1.2 0 - 4 % [facility] Basophils Percent Auto 0.5 0 - 2 % [facility] NRBC Pct Auto 0.0 0.0 - 0.2 /100WBC [facility] Neutrophils Absolute Auto 5.5 2.0 - 8.3 x10*3/uL [facility] Imm Gran Abs Auto 0.03 0.00 - 0.03 X10*3/uL [facility] Lymphocytes Absolute Auto 1.8 1.2 - 4.9 X10*3/uL [facility] Monocytes Absolute Auto 0.6 0.1 - 1.2 X10*3/uL [facility] Eosinophils Absolute Auto 0.1 0.0 - 0.4 X10*3/uL [facility] Basophils Absolute Auto 0.0 0.0 - 0.2 X10*3/uL [facility] NRBC Abs Auto 0.000 0.0 - 0.012 X10*3/uL [facility] Blood Venous blood specimen / Unknown 03/28/2024 11:45 AM EST 03/28/2024 1:06 PM EST us Ira Hawthorne SEWAGE PLANT SUPERVISOR LAB BLOOD ORDERABLES Felicitas l Result [facility] [address] [place] [phone] documented in this encounter Visit Diagnoses Diagnosis Healthcare maintenance- Primary Low back pain radiating to both legs Lumbago Chronic fatigue Other malaise and fatigue Left hip pain Pain in joint, pelvic region and thigh documented in this encounter Additional Health Concerns Assessment Noted Time PHQ-9 Depression Total Score: 5 10/05/19 24 9:09 AM EDT documented as of this encounter Care Teams Artificial Limb Fitter Relationship Specialty Start Date End Date Ria Franks ANP [address] [place] [phone] PCP - General Family Medicine 02/27/20 documented as of this encounter
== END 2024-04-21 10:51 | disposition home or self-care (01) ==
LOC: HO.US 10:50
PROVIDERS: PCP Nurse Practitioner Primary Care; Visit Provider Obstetrics & Gynecology
DX: Z34.91 Encounter for supervision of normal pregnancy, unspecified, first trimester (principal); Z3A.01 Less than 8 weeks gestation of pregnancy
CPT/HCPCS: 76801; 76817; 99212

== ENCOUNTER 2024-05-02 12:50 | Outpatient (RCR) | payer MEDICAID, SELFPAY | END 2024-05-15 17:57 | disposition home or self-care (01) | LOC: HO.PT 12:50 | PROVIDERS: PCP Nurse Practitioner Primary Care | DX: M54.50 Low back pain, unspecified (principal); M79.604 Pain in right leg; M79.605 Pain in left leg | CPT/HCPCS: 97110; 97161 ==

== ENCOUNTER 2024-08-14 14:04 | Outpatient (AMB) | payer MEDICAID, SELFPAY ==
--- NOTE | 2024-08-14 14:08 | MHC.OFFVIS ---
Vital Signs 08/14/24 14:09 Height 5 ft 3 in Weight 258 lb 9.636 oz BMI 45.8 BP 116/70 Blood Pressure Location Rt brachial Position Sitting Pulse 105 H Pulse Source Pulse Oximeter Pulse Oximetry (%) 98 Oxygen Delivery Method Room Air Intake Visit Reasons: f/u MNG/ PCOS Intake Note: Patient present today for MNG and PCOS follow up. Copra Processor Required: Yes Copra Processor Language: Dining Car Waiter/Waitress Services: Copra Processor Present Copra Processor Name: [facility] Information Interpreted: non-clinical & clinical Accompanied by: Self / Same As Patient Allergies No Known Allergies Allergy (Verified 08/14/24 14:11) Medication List - Last Reconciled 08/14/24 by Garcia Ellison MD cholecalciferol (vitamin D3) 50 mcg PO DAILY omeprazole 20 mg PO DAILY pyridoxine (vitamin B6) (Vitamin B-6) 25 mg PO tid PRN 30 days sennosides (Natural Senna Laxative) 17.2 mg (2 x 8.6 mg) PO BEDTIME HPI Comments Details: 34 YO Female with PMHx Asthma who is seen in F/U for PCOS/Oligomenorrhea and a NTMNG. 1) PCOS: Menarche was age 11. Menses were regular initially, but have become irregular for 6 years after having her son. She reports gaining approximately 50 lbs with her son, and has since had irregular menses. She skips some months, not having menses for up to 3 months at a time. Sometimes heavy, sometimes very light. She also reported some hirsutism and difficulty conceiving. At her initial visit we completed a full panel including assessing for hyperandrogenism from ovarian and adrenal source. Workup was completely WNL. She did have labs concerning for adrenal insufficiency but underwent cosyntropin stim testing which was WNL. She had taken Metformin 500 mg PO BID, and since that time has had regular monthly menses. She stopped the Metformin of her own accord, but reports menses remain regular. She was also referred to the bariatric weight management program, and only attended the orientation session. OCP use: Not using OCP currently. Metformin use: Was on this previously, but stopped this of her own accord. Hirsutism/hyperandrogenism: Thick coarse hairs on her chin, and acne. She has been following with [facility]. Currently 6 mos 2) NTMNG: She had a thyroid US which revealed a multinodular thyroid. She underwent FNA biopsy of her left mid pole 2.3 cm thyroid nodule 05/04/2022 with benign (bethesda category II) cytology. Thyroid US: 02/17/2022 Right Thyroid Lobe: 4.9 x 1.6 x 1.5 cm, volume 6.3 mL. Parenchyma: The gland echotexture is heterogeneous. Thyroid vascularity is normal. Left Thyroid Lobe: 4.8 x 1.7 x 1.6 cm, volume 6.8 mL. Parenchyma: The gland echotexture is heterogeneous. Thyroid vascularity is normal. Isthmus: 0.2 cm in maximum AP dimension. Estimated total number of nodules greater than or equal to 1 cm: 3. Manager Property nodules are described as follows: 1. Location: Right mid pole. ?? ? Size: 1.2 x 2.2 x 1.2 cm, volume 1.6 mL. ?? ? Nodule characteristics: ?? ? Composition: Solid/almost completely solid (2). ?? ? Echogenicity: Hypoechoic (2). ?? ? Shape: Not taller than wide (0). ?? ? Margins: Lobulated (2). ?? ? Echogenic Foci: None (0). ?? ? ACR TI-RADS total points: 6 ?? ? ACR TI-RADS category: 4 2. Location: Right lower pole. ?? ? Size: 0.7 x 0.5 x 0.6 cm, volume 0.11 mL. ?? ? Nodule characteristics: ?? ? Composition: Solid/almost completely solid (2). ?? ? Echogenicity: Hypoechoic (2). ?? ? Shape: Not taller than wide (0). ?? ? Margins: Smooth (0). ?? ? Echogenic Foci: None (0). ?? ? ACR TI-RADS total points: 4 ?? ? ACR TI-RADS category: 4 3. Location: Left upper pole. ?? ? Size: 0.9 x 0.5 x 0.7 cm, volume 0.16 mL. ?? ? Nodule characteristics: ?? ? Composition: Solid/almost completely solid (2). ?? ? Echogenicity: Hypoechoic (2). ?? ? Shape: Not taller than wide (0). ?? ? Margins: Smooth (0). ?? ? Echogenic Foci: None (0). ?? ? ACR TI-RADS total points: 4 ?? ? ACR TI-RADS category: 4 4. Location: Left mid pole. ?? ? Size: 1.1 x 0.8 x 1.0 cm, volume 0.44 mL. ?? ? Nodule characteristics: ?? ? Composition: Mixed cystic and solid (1). ?? ? Echogenicity: Hypoechoic (2). ?? ? Shape: Not taller than wide (0). ?? ? Margins: Smooth (0). ?? ? Echogenic Foci: None (0). ?? ? ACR TI-RADS total points: 3 ?? ? ACR TI-RADS category: 3 5.? Location: Left lower pole. ?? ? Size: 1.7 x 0.8 x 0.7 cm, volume 0.50 mL. ?? ? Nodule characteristics: ?? ? Composition: Solid/almost completely solid (2). ?? ? Echogenicity: Hypoechoic (2). ?? ? Shape: Not taller than wide (0). ?? ? Margins: Smooth (0). ?? ? Echogenic Foci: Macrocalcifications (1). ?? ? ACR TI-RADS total points: 5 ?? ? ACR TI-RADS category: 4 NODES: No lymphadenopathy is seen in the tissue surrounding the thyroid gland. Pituitary MRI: 06/18/18 FINDINGS: The pituitary gland is normal in size and demonstrates normal homogeneous enhancement. The superior margin is concave. No differentially enhancing lesion is seen to suggest the presence of a microadenoma. The infundibulum inserts just left of midline. The hypothalamus appears normal. The cavernous sinuses demonstrate normal and symmetric enhancement. The optic apparatus appears normal. No pineal fossa region mass is seen. There is no acute infarction, mass, hemorrhage, or extra-axial collection. No abnormal or unexpected intracranial enhancement is seen. The ventricles, sulci, and basilar cisterns are normal in size and configuration. The flow voids of the major intracranial arteries appear intact. Atlantooccipital assimilation is incidentally noted. The extracranial structures otherwise appear within normal limits. IMPRESSION: - No hypothalamic pituitary axis abnormality is seen. Labs: Laboratory Tests 05/18/22 13:50 TSH 1.19 Free T4 0.82 Status post FNA. No obstructive symptoms The patient is a 34-year-old female presenting with management of thyroid nodules and polycystic ovarian syndrome during . Currently, at six months gestation, she previously had thyroid nodules that were biopsied and determined to be benign. There are no notable symptoms related to her thyroid such as swallowing difficulties or neck discomfort, and her thyroid levels were reportedly normal in March. During this visit, the patient expressed concern about shortness of breath; however, it is not linked to her thyroid condition. Regarding her PCOS, medication treatment is deferred during the to prevent any potential complications. The patient acknowledges occasional bothersome hair growth, but since she is , no current treatment is recommended. Discussions have covered managing these issues, particularly after childbirth, to explore potential treatment options if the problems persist. [facility] Medical History Multinodular thyroid Goiter Anemia PCOS (polycystic ovarian syndrome) Surgical History Hx of ultrasound guided needle biopsy Hx of cholecystectomy Hx of section Hx of tonsillectomy Family History Father Hypertension Mother Diabetes Maternal Grandmother Diabetes Paternal Grandfather Diabetes Cancer Paternal Grandmother Diabetes Arthritis of knee Social History Household Members: Children Housing: House Alcohol intake: never Patient Tobacco Use Status: Never used Tobacco Current occupational status: employed Current occupation: [employer] Sexual orientation: Straight/Heterosexual Gender identity: Female Female Reproductive History Menstrual Age of Menarche: 11 Physical Exam Const Other: Thyroid gland is normal size weighs about 15 g. There are no palpable thyroid nodules Assessment & Plan Assessment & Plan (1) Multinodular thyroid: Code(s): E04.2 - Nontoxic multinodular goiter Category: Medical Plan: This is a 32-year-old female with a history of multinodular goiter status post FNA of left midpole nodule with benign cytology. She appears clinically and biochemically euthyroid. Recent thyroid ultrasound showed the presence of an additional right midpole nodule warranting biopsy. She is status post FNA of the right midpole nodule with benign cytology. She is clinicallyand biochemically euthyroid Plan is to follow the multinodular goiter with serial ultrasounds. Will have patient follow up with Dr. Jeffrey and reagent tender helper in our practice with expertise in thyroid ultrasound 1. Thyroid Nodules The benign thyroid nodules will be monitored, with a follow-up ultrasound planned post- with Dr. Jeffrey to confirm stability. Thyroid function is currently normal. 2. Management includes addressing shortness of breath with possible [facility] consultation to ensure no underlying issues. 3. Polycystic Ovarian Syndrome (PCOS) Defer treatment until post- due to potential risks; follow-up after delivery for treatment options if necessary. During the consultation, we discussed the potential implications of thyroid nodules and PCOS on . I confirmed the patient's thyroid function is currently normal, and there are no acute issues necessitating intervention during . We reviewed the patient's concern about shortness of breath, noting it may be related to , with no immediate thyroid concerns, and advised consulting primary care or [facility]. I outlined a plan for a follow-up ultrasound with Dr. Jeffrey after childbirth to ensure nodule stability. Regarding PCOS, I highlighted the decision to avoid pharmacological intervention during for safety reasons. The patient expressed understanding and agreement with the proposed management plan. - Monitor for any significant changes in symptoms or health. - Report increased shortness of breath to [facility] or primary care provider. - Schedule a follow-up thyroid ultrasound with Dr. Jeffrey five months post-delivery. - Discuss PCOS-related symptoms with healthcare provider post- if they remain bothersome. The patient had an opportunity to ask questions regarding treatment plan. The patient expressed understanding and agreement with the above treatment plan. Patient was informed and verbally consented to the use of an ambient scribe for clinic note documentation during this visit. (2) PCOS (polycystic ovarian syndrome): Code(s): E28.2 - Polycystic ovarian syndrome Category: Medical Plan: Currently following with OBGYN. Can follow up after if interested in taking spironolactone for hirsutism Coding Level of Care Code Est Pt Level 3 (97329) Diagnoses Multinodular thyroid E04.2 PCOS (polycystic ovarian syndrome) E28.2
[2024-08-14 14:09] VITALS: BP 116/70; PULSE 105; O2SAT 98; BMI 45.8
--- OUTSIDE RECORDS SUMMARY | 2024-08-14 16:42 | XMS_ITS | Encounter Summary ---
Author Organization [employer] Address [address] [place] [address] 7 [place] [address] Care Team Providers Care Gis Mapping Technician Name Role Phone Ria Franks Primary Care Provider [phone] Reason for Visit * Reason Onset Date Comments Appointment Request 05/23/2024 Encounter Details Date Type Department Care Team ([facility] st Contact Info) Description 05/23/2024 Telephone [facility] [address] [place] [address] Ria Franks ANP [address] [place] [address] Appointment Request Social History Tobacco Use Types Packs/Day Years [...] got money to buy more: Never True 05/12/2024 Within the past 12 months,th e food you bought just didn't last and you didn't have enough money to get more: Never True 05/2024 Transportation Answer Date Recorded In the past [...] Internet Access Q2 Not on file 03/19/2024 Estimated Date of Delivery Comme nts Yes 12/03/2024 Based on [facility], [facility] Sex and Gender Information Value Date Recorded Sex Assigned at Female 01/09/2022 10:17 AM EDT Legal Sex Female 10:17 AM EDT Gender Identity Female 01/09/2022 10:17 AM EDT Sexual Orientation Straight 01/09/2022 10 :17 AM EDT documented as of this encounter Miscellaneous Notes * Telephone Encounter - Olikiley Brown - 05/23/2024 4:34 PM EDT Tc from pt requesting to reschedule today's PE. Please contact pt at [phone]. (Lithuanian Speaker) documented in this encounter Plan of Treatment Upcoming Encounters Date Type Department Care Team (Late st Contact Info) Description 10/17/2024 2:30 PM EDT Office Visit [facility] [address] [place] [address] Ria Franks ANP [address] [place] [address] documented as of this encounter Visit Diagnoses Not on filedocumented in this encounter Additional Health Concerns Assessment Noted Time PHQ-9 Depression Total Score: 5 10/05/19 24 9:09 AM EDT documented as of this encounter Care Teams Gis Mapping Technician Relationship Specialty Start Date End Date Ria Franks ANP [address] [place] [address] PCP - General Family Medicine 02/27/20 Analisa Garcia Admittance Attendant 06/27/24 documented as of this encounter
== END 2024-08-14 14:20 | disposition home or self-care (01) ==
LOC: HO.ENCR 14:05
PROVIDERS: PCP Nurse Practitioner Primary Care; Visit Provider Internal Medicine Endocrinology, Diabetes & Metabolism
DX: E04.2 Nontoxic multinodular goiter (principal); E28.2 Polycystic ovarian syndrome
CPT/HCPCS: 99213

== ENCOUNTER → 2024-08-14 14:04 | Outpatient (BNVA) | payer MEDICAID, SELFPAY | PROVIDERS: PCP Nurse Practitioner Primary Care; Visit Provider Internal Medicine Endocrinology, Diabetes & Metabolism | DX: E04.2 Nontoxic multinodular goiter (principal); E28.2 Polycystic ovarian syndrome | CPT/HCPCS: 99212 ==

== ENCOUNTER 2025-02-25 16:30 | Outpatient (AMB) | payer MEDICAID, SELFPAY ==
--- NOTE | 2025-02-25 16:34 | A.OFFVIS_ITS ---
Vital Signs 02/25/25 16:35 Height 5 ft 3 in Weight 249 lb 1.957 oz BMI 44.1 BP 120/68 Blood Pressure Location Rt brachial Position Sitting Pulse 80 Pulse Source Pulse Oximeter Pulse Oximetry (%) 98 Oxygen Delivery Method Room Air Intake Visit Reasons: Multinodular thyroid,PCOS Intake Note: Patient present today for MNG and PCOS follow up. Drag Car Racer Required: Yes Drag Car Racer Language: Automotive Diagnostic Technician Services: Drag Car Racer Present Drag Car Racer Name: GABRIELA Tatum Information Interpreted: non-clinical & clinical Accompanied by: Self / Same As Patient Allergies No Known Allergies Allergy (Verified 02/25/25 16:38) HPI Comments Details: 34 YO Female with PMHx Asthma who is seen in F/U for PCOS/Oligomenorrhea and a NTMNG. 1) PCOS: Menarche was age 11. Menses were regular initially, but have become irregular for 6 years after having her son. She reports gaining approximately 50 lbs with her son, and has since had irregular menses. She skips some months, not having menses for up to 3 months at a time. Sometimes heavy, sometimes very light. She also reported some hirsutism and difficulty conceiving. At her initial visit we completed a full panel including assessing for hyperandrogenism from ovarian and adrenal source. Workup was completely WNL. She did have labs concerning for adrenal insufficiency but underwent cosyntropin stim testing which was WNL. She had taken Metformin 500 mg PO BID, and since that time has had regular monthly menses. She stopped the Metformin of her own accord, but report s menses remain regular. She was also referred to the bariatric weight management program, and only attended the orientation session. OCP use: Not using OCP currently. Metformin use: Was on this previously, but stopped this of her own accord. Hirsutism/hyperandrogenism: Thick coarse hairs on her chin, and acne. She has been following with [facility]. Currently 6 mos 2) NTMNG: She had a thyroid US which revealed a multinodular thyroid. She underwent FNA biopsy of her left mid pole 2.3 cm thyroid nodule 05/04/2022 with benign (bethesda category II) cytology. Thyroid US: 02/17/2022 Right Thyroid Lobe: 4.9 x 1.6 x 1.5 cm, volume 6.3 mL. Parenchyma: The gland echotexture is heterogeneous. Thyroid vascularity is normal. Left Thyroid Lobe: 4.8 x 1.7 x 1.6 cm, volume 6.8 mL. Parenchyma: The gland echotexture is heterogeneous. Thyroid vascularity is normal. Isthmus: 0.2 cm in maximum AP dimension. Estimated total number of nodules greater than or equal to 1 cm: 3. Tailor [employer] nodules are described as follows: 1. Location: Right mid pole. ?? ? Size: 1.2 x 2.2 x 1.2 cm, volume 1.6 mL. ?? ? Nodule characteristics: ?? ? Composition: Solid/almost completely solid (2). ?? ? Echogenicity: Hypoechoic (2). ?? ? Shape: Not taller than wide (0). ?? ? Margins: Lobulated (2). ?? ? Echogenic Foci: None (0). ?? ? ACR TI-RADS total points: 6 ?? ? ACR TI-RADS category: 4 2. Location: Right lower pole. ?? ? Size: 0.7 x 0.5 x 0.6 cm, volume 0.11 mL. ?? ? Nodule characteristics: ?? ? Composition: Solid/almost completely solid (2). ?? ? Echogenicity: Hypoechoic (2). ?? ? Shape: Not taller than wide (0). ?? ? Margins: Smooth (0). ?? ? Echogenic Foci: None (0). ?? ? ACR TI-RADS total points: 4 ?? ? ACR TI-RADS category: 4 3. Location: Left upper pole. ?? ? Size: 0.9 x 0.5 x 0.7 cm, volume 0.16 mL. ?? ? Nodule characteristics: ?? ? Composition: Solid/almost completely solid (2). ?? ? Echogenicity: Hypoechoic (2). ?? ? Shape: Not taller than wide (0). ?? ? Margins: Smooth (0). ?? ? Echogenic Foci: None (0). ?? ? ACR TI-RADS total points: 4 ?? ? ACR TI-RADS category: 4 4. Location: Left mid pole. ?? ? Size: 1.1 x 0.8 x 1.0 cm, volume 0.44 mL. ?? ? Nodule characteristics: ?? ? Composition: Mixed cystic and solid (1). ?? ? Echogenicity: Hypoechoic (2). ?? ? Shape: Not taller than wide (0). ?? ? Margins: Smooth (0). ?? ? Echogenic Foci: None (0). ?? ? ACR TI-RADS total points: 3 ?? ? ACR TI-RADS category: 3 5.? Location: Left lower pole. ?? ? Size: 1.7 x 0.8 x 0.7 cm, volume 0.50 mL. ?? ? Nodule characteristics: ?? ? Composition: Solid/almost completely solid (2). ?? ? Echogenicity: Hypoechoic (2). ?? ? Shape: Not taller than wide (0). ?? ? Margins: Smooth (0). ?? ? Echogenic Foci: Macrocalcifications (1). ?? ? ACR TI-RADS total points: 5 ?? ? ACR TI-RADS category: 4 NODES: No lymphadenopathy is seen in the tissue surrounding the thyroid gland. Pituitary MRI: 06/18/18 FINDINGS: The pituitary gland is normal in size and demonstrates normal homogeneous enhancement. The superior margin is concave. No differentially enhancing lesion is seen to suggest the presence of a microadenoma. The infundibulum inserts just left of midline. The hypothalamus appears normal. The cavernous sinuses demonstrate normal and symmetric enhancement. The optic apparatus appears normal. No pineal fossa region mass is seen. There is no acute infarction, mass, hemorrhage, or extra-axial collection. No abnormal or unexpected intracranial enhancement is seen. The ventricles, sulci, and basilar cisterns are normal in size and configuration. The flow voids of the major intracranial arteries appear intact. Atlantooccipital assimilation is incidentally noted. The extracranial structures otherwise appear within normal limits. IMPRESSION: - No hypothalamic pituitary axis abnormality is seen. Labs: Laboratory Tests 05/18/22 13:50 TSH 1.19 Free T4 0.82 Status post FNA. No obstructive symptoms Regarding her PCOS, medication treatment is deferred during the to prevent any potential complications. The patient acknowledges occasional bothersome hair growth, but since she is , no current treatment is recommended. Discussions have covered managing these issues, particularly after childbirth, to explore potential treatment options if the problems persist. 2 mos . Had menses last mo . Has CONTACT CENTER DIRECTOR appt 04/15/2024. Is breast feeding . Hair growth not burdensome [facility] Medical History Multinodular thyroid Goiter Anemia PCOS (polycystic ovarian syndrome) Surgical History Hx of ultrasound guided needle biopsy Hx of cholecystectomy Hx of section Hx of tonsillectomy Family History Father Hypertension Mother Diabetes Maternal Grandmother Diabetes Paternal Grandfather Diabetes Cancer Paternal Grandmother Diabetes Arthritis of knee Social History Household Members: Children Housing: House Alcohol intake: never Patient Tobacco Use Status: Never used Tobacco Current occupational status: employed Current occupation: [employer] Sexual orientation: Straight/Heterosexual Gender identity: Female Female Reproductive History Menstrual Age of Menarche: 11 Physical Exam Vital Signs: Last Vital Signs Pulse 80 02/25/25 16:35 BP 120/68 02/25/25 16:35 Pulse Ox 98 02/25/25 16:35 Oxygen Delivery Method Room Air 02/25/25 16:35 BMI result Body Mass Index 44.1 Const Other: Thyroid gland is normal size weighs about 15 g. There are no palpable thyroid nodules Assessment & Plan Assessment & Plan (1) Multinodular thyroid: Code(s): E04.2 - Nontoxic multinodular goiter Category: Medical Plan: This is a 32-year-old female with a history of multinodular goiter status post FNA of left midpole nodule with benign cytology. She appears clinically and biochemically euthyroid. Recent thyroid ultrasound showed the presence of an additional right midpole nodule warranting biopsy. She is status post FNA of the right midpole nodule with benign cytology. She is clinicallyand biochemically euthyroid Plan is to follow the multinodular goiter with serial ultrasounds. Will have patient follow up with Dr. Jeffrey and loop tender in our practice with expertise in thyroid ultrasound (2) PCOS (polycystic ovarian syndrome): Code(s): E28.2 - Polycystic ovarian syndrome Category: Medical Plan: Currently following with OBGYN. Can follow up after if interested in taking spironolactone for hirsutism Coding Level of Care Code Est Pt Level 3 (89385) Diagnoses Multinodular thyroid E04.2 PCOS (polycystic ovarian syndrome) E28.2
[2025-02-25 16:35] VITALS: BP 120/68; PULSE 80; O2SAT 98; BMI 44.1
--- OUTSIDE RECORDS SUMMARY | 2025-02-25 21:00 | XMS_ITS | Encounter Summary ---
Author Organization [employer] Address [address] [place] [address] Care Team Providers Care Offshoring Manager Name Role Phone Ria Franks Primary Care Provider [phone] Reason for Visit * Reason Comments Med Refill Encounter Details Date Type Department Care Team (Late st Contact Info) Description 10/03/2022 Refill [facility] [address] [place], [place] [id number] Carmine Roy FNP Heartburn Social History Tobacco Use Types Packs/Day [...] as of this encounter Plan of Treatment Not on file documented as of this encounter Visit Diagnoses Diagnosis Heartburn documented in this encounter Care Teams Offshoring Manager Relationship Specialty Start Date End Date Ria Franks ANP [address] [place] [address] PCP - General Family Medicine 02/27/20 Analisa Garcia Drywall Applicator 06/27/24 documented as of this encounter
--- OUTSIDE RECORDS SUMMARY | 2025-02-25 21:00 | XMS_ITS | Encounter Summary ---
Author Organization [employer] Address [address] [place] [address] Care Team Providers Care Health Professor Name Role Phone Rai Franks Primary Care Provider [phone] Reason for Visit * Reason Onset Date Comments Care Management 02/24/2025 C3CM follow up c all Encounter Details Date Type Department Care Team ([facility] st Contact Info) Description 02/24/2025 Telephone [facility] MEDICINE [address] [place], [place] [phone] Ria Franks ANP [address] [place] [address] Care Management (C3CM follow up call) Social History Tobacco Use Types Packs/Day Years Used Date Smoking Tobacco: Never Passive Smoke Exposure: Never Smokeless Tobacco: Never Alcohol Use Standard Drinks/Week Comments Never 0 (1 standard drink = 0.6 oz pur e alcohol) Depression Answer Date Recorded Patient Health Questionnaire-9 Score 0 01/12/2025 Patient Health Questionnaire-9 Score 0 01/12/2025 Last PHQ-9: Questionnaire Data Not on file 1 03/14/2024 Housing Stability Answer Date Recorded What is [...] Date Recorded Patient Health Questionnaire-2 Score 0 01/12/2025 Internet Access Answer Date Recorded Internet Access Q1 Yes 03/19/2024 Internet Access Q2 Not on file 03/19/2024 Comments No Sex and Gender Information Value Date Recorded Sex Assigned at Female 01/09/2022 10:17 AM EDT Legal Sex Female 10:17 AM EDT Gender Identity Female 01/09/2022 10:17 AM EDT Sexual Orientation Straight 01/09/2022 10 :17 AM EDT documented as of this encounter Miscellaneous Notes * Telephone Encounter - Analisa Nixon - 02/24/2025 10:35 AM EST ALVIN Nixon RN and CHW Sabrina Crane placed outbound call to patient. Patient's name, and address confirmed. Patient states is doing well with no recent illnesses or emergency room visits. Patient and infant are doing well. Patient continues to breast and bottle feed with no difficulties. Patient states her nipple pain has improved and she is no longer having any difficulties. Patient states that she is doing well emotionally, feels a little anxious at times, but manuel well. Patient attended appointment and needs to continue to monitor her blood pressures. Her numbers have been ranging 130's/70's and denies headaches or blurry vision. Patient is scheduled with ob f or BP 04/15/25. At this appointment she is going to discuss control options. Patient aware thatshe can request a sooner appointment if she needs control before 04/15/25. Patient attended physical and Cut Filer reviewed with patient. No further questions or concerns. CM reinforced direct contact information or CHW for any additional questions or concerns. Education provided on [facility] located in [facility] of [facility]. Patient provided with after-hours line for [facility], , which offer night time triage service and option to transfer to international project manager provider if needed. Patient verbalizes understanding, and able to repeat back to gag writer. A follow up call will be placed within 1 month, patientagrees with plan. documented in this encounter Plan of Treatment Not on file documented as of this encounter Visit Diagnoses Not on filedocumented in this encounter Additional Health Concerns Assessment Noted Time PHQ-9 Depression Total Score: 0 01/13/20 25 3:24 PM EST documented as of this encounter Care Teams Health Professor Relationship Specialty Start Date End Date iRa Franks ANP [address] [place] [address] PCP - General Family Medicine 02/27/20 Analisa Garcia Cut Filer 06/27/24 documented as of this encounter
--- OUTSIDE RECORDS SUMMARY | 2025-02-25 21:00 | XMS_ITS | Encounter Summary ---
Author Organization [employer] Address [address] [place] [address] Care Team Providers Care Starbucks Clerk Name Role Phone Ria Franks Primary Care Provider [phone] Reason for Visit * Reason Onset Date Comments Appointment Request 05/23/2024 Encounter Details Date Type Department Care Team (Late st Contact Info) Description 05/23/2024 Telephone [facility] MEDICINE [address] [place] [address] Ria Franks ANP [address] [place] [address] Appointment Request Social History Tobacco Use Types [...] Access Q2 Not on file 03/19/2024 Comments Yes Sex and Gender Information Value Date Recorded Sex Assigned at Female 01/09/2022 10:17 AM EDT Legal Sex Female 10:17 AM EDT Gender Identity Female 01/09/2022 10:17 AM EDT Sexual Orientation Straight 01/09/2022 10 :17 AM EDT documented as of this encounter Miscellaneous Notes * Telephone Encounter - Oli Brown - 05/23/2024 4:34 PM EDT Tc from pt requesting to reschedule today's PE. Please contact pt at [phone]. (Belarusian Speaker) documented in this encounter Plan of Treatment Not on file documented as of this encounter Visit Diagnoses Not on filedocumented in this encounter Additional Health Concerns Assessment Noted Time PHQ-9 Depression Total Score: 5 10/05/19 24 9:09 AM EDT documented as of this encounter Care Teams Starbucks Clerk Relationship Specialty Start Date End Date Ria Franks ANP [address] [place] [address] PCP - General Family Medicine 02/27/20 Analisa Garcia Container Crane Operator 06/27/24 documented as of this encounter
--- OUTSIDE RECORDS SUMMARY | 2025-02-25 21:00 | XMS_ITS | Clinical Summary ---
Author Organization [facility] Address [address] [place] [address] Phone Care Team Providers Care Greige Goods Inspector Name Role Phone Ria Franks NP Primary Care Provider [phone] Allergies No known active allergies Medications albuterol 90 mcg/actuation inhaler Inhale 2 puffs into the lungs every 6 (six) hours as needed for wheezing. Active pantoprazole (PROTONIX) 40 MG tablet Take 1 tablet (40 mg total) by mouth daily. 14 tablet 0 Active Additional Information Patient not taking.Reported on 11/23/2023 senna-docusate (PERICOLACE) 8.6-50 mg Take 1-2 tablets once daily for constipation 3 Active SENNA 8.6 mg tablet TAKE 2 TABLETS BY MOUTH DAILY AT BEDTIME FOR CONSTIPATION 4 Active polyethylene glycol (MIRALAX) 17 gram/dose powder 17G in water or juice as directed on package 1-2 times daily as needed for constipation 3 Active GUMMIES 400 mcg-35 mg- 25 mg-5 mg Chew CHEW 1 GUMMY DIRECTED ON CONTAINER DAILY OTC NOT COVERED 4 Active naproxen (NAPROSYN) 500 MG tablet TAKE 1 TAB TWICE DAILY WITH FOOD FOR 1 WEEK, MAY REPEAT NEEDED FOR BACK PAIN FLARE 4 Active cholecalciferol (VITAMIN D3) 2,000 unit capsule Take 1 capsule by mouth every morning. 4 Active cholecalciferol (VITAMIN D3) 25 MCG (1,000 unit) tablet TAKE 1 TABLET (25 MCG) BY MOUTH IN THE MORNING 3 Active Active Problems Problem Noted Date Diagnosed Date PCOS (polycystic ovarian syndrome) 11/23/2023 Assessment & Plan (11/23/2023 10:44 AM EDT): In review of this patients history (hirsutism, irregular menses) and clinical findings today, PCOS remains suspected. In light of the common public misunderstanding of the disorder, extensive counseling/education was needed. The prevalent relationship of PCOS with insulin resistance, ovarian dysfunction and consequent long-term health issues of diabetes and heart disease were presented to the patient. Further, distinction between treatment of PCOS-associated symptoms and correction of an underlying hyper-insulinemia was offered with the inherent relationship of PCOS to dietary carbohydrate intake, cardiovascular exercise and weight (increase body mass index). Behavioral interventions are preferred and medical options will be reserved should these approaches fail to adequately improve her condition. Pelvic US ordered to evaluate for polycystic appearing ovaries. Methods for management of hirsutism discussed. Patient considering trying to conceive and declines hormonal contraception. Currently having regular menses, will follow up with office if amenorrhea occurs. Referral to [facility] weight management placed to discuss medical weight loss. Plan follow up in 3 months or sooner to discuss US result and patient's plan of care. Social History Tobacco Use Types Packs/Day Years Used Date Smoking Tobacco: Never Tobacco Cessation:Counseling Given: Not Answered Alcohol Use Standard Drinks/Week Comments Not Currently 0 (1 standard drink = 0.6 oz pur e alcohol) Education Answer Date Recorded Are you interested in more education? Not on cheko e 07/07/2022 Are you concerned about learning? Not on file 07/07/2022 No 07/07/2022 No 07/07/2022 Digital Access Answer Date Recorded No 08/05/2022 No 08/05/2022 Reliable internet access at home? Not on file 08/05/2022 Device with a working camera? Not on file Comments No Sex and Gender Information Value Date Recorded Sex Assigned at Female 09/14/2018 5:32 PM EDT Legal Sex Female 1:50 PM EDT Gender Identity Female 09/14/2018 5:32 PM EDT Sexual Orientation Straight 09/14/2018 5: 32 PM EDT Last Filed Vital Signs Vital Sign Reading Time Taken Comments Blood Pressure 120/86 11/23/2023 10:14 AM EDT Pulse 83 03/18/2019 7:22 AM EST Temperature 36.4 C (97.6 F) 03/18/2019 5:48 AM EST Respiratory Rate 18 03/18/2019 7:22 AM EST Oxygen Saturation 96% 03/18/2019 7:22 AM EST Inhaled Oxygen Concentration - - Weight 107 kg (235 lb 12.8 oz) 11/23/2023 10:14 AM EDT Height 165.1 cm (5' 5 ) 11/23/2023 10:14 AM EDT Body Mass Index 39.24 11/23/2023 10:14 AM EDT Plan of Treatment Health Maintenance Due Date Last Done Comments DEPRESSION SCREENING 2002 HEPATITIS C SCREENING 2008 HIV ONE-TIME SCREENING (18-65 YEARS) 2008 PAP SMEAR 07/20/2011 Adult Td,Tdap Booster 03/02/2021 03/02/2011, 004 INFLUENZA VACCINE (#1) 2024 06/25/2015, 2010 COVID-19 VACCINE ( season) 2024 12/10/2020, 11/11/2020 HIB VACCINES Completed 07/10/1992, 04/1991, 02/10/1991, Additional history exists PNEUMOCOCCAL VACCINES (0-49 years) Aged Out 03/02/2011, 03/02/2011 No longer eligibl e based on patient's age to complete this topic SMOKING STATUS SCREENING (Once After 26 Yrs) Completed 11/23/2023 HEPATITIS A VACCINES Aged Out No long er eligible based on patient's age to complete this topic MENINGOCOCCAL VACCINES (ACWY) Aged Out No longer eligible based on patient's age to complete this topic MENINGOCOCCAL VACCINES (B) Aged Out N o longer eligible based on patient's age to complete this topic Medical Devices Not on file Insurance [employer] [place] [address] [place] [address] [place] [address] [place] [address] [employer] [place] [place] [id number] Care Teams Greige Goods Inspector Relationship Specialty Start Date End Date Ria Franks NP [address] [place] [address] PCP - General Nurse Practitioner 10/26/23 Additional Source Comments The information contained in this document represents components of the legal health record. It is not the complete legal health record.[facility]
--- OUTSIDE RECORDS SUMMARY | 2025-02-25 21:00 | XMS_ITS | Clinical Summary ---
Author Organization [employer] Address [address]t [place] [address] Care Team Providers Care Linesperson Name Role Phone Ria Franks Primary Care Provider [phone] Allergies No known active allergies Medications Vit-Fe Fumarate-FA ( Vitamins) 28-0.8 MG tabletIndications :Family Planning Take 1 tablet by mouth Once per day. 90 tablet 3 5 04/01/19 26 Active albuterol 108 (90 Base) MCG/ACT inhalerIndication s:Mild intermittent asthma without complication Inhale 2 puffs every 6 (six) hours if needed for wheezing or shortness of breath. 18 g 5 Active Active Problems Problem Noted Date Diagnosed Date Non-toxic multinodular goiter 10/05/2023 Overview (10/05/2023): [place] [facility] [place] 07/19/23 Thyroid, right nodule, fine needle aspiration: Benign ([place] category II) Status post cholecystectomy 10/05/2023 Gastroesophageal reflux disease 10/05/2023 Overview (10/05/2023): [place] [facility] [place], now PRN. H. pylori testing negative [...] cystitis 08/02/2022 10/05/2023 Acute cholecystitis 07/23/2020 10/05/19 Encounters Date Type Department Care Team Description 02/24/[address] [address] Ria Franks ANP Care Management (C3CM follow up call) 01/27/[address] [address] Ria Franks ANP Care Management ([facility] TC #[id number]) 01/12/2025 2:30 PM EST Office Visit [address] [address] Ria Franks ANP Healthcare maintenance (Primary Dx); Non-toxic multinodular goiter; Mild intermittent asthma without complication; Dietary counseling; Exercise counseling; PCOS (polycystic ovarian syndrome); Gastroesophageal reflux disease, unspecified whether esophagitis present; Mother currently breast-feeding 01/12/2025 Travel 01/09/[address] [address] Ria Franks ANP chart prep 01/07/2025 Patient Outreach [address] [address] Ria Franks ANP Care Coordination ([facility]/ESTER Méndez- Graduated) 01/05/2025 Travel 01/02/2025 Patient Outreach [address] [address] Ria Franks ANP Pre-visit Planning (SDOH screening was completed on 05/12/2024) 12/29/[address] [address] Ria Franks ANP Care Management (C3CM follow up call) 12/10/[address] [address] Ria Franks ANP Care Management (C3CM follow up call) 12/04/2024 Patient Outreach [facility] MEDICINE [address] [place] [id number] Ria Franks ANP Transition Of Care (Tcm) (HDF unscheduled and SDOH screening completed on 05/12/24) from Last 3 Months Immunizations Immunization Administration Dates Next Due DTaP 02/24/2012, 5,07/10/1994,03/13,02/10/1991,1990 Hep B, adult 11/11/1996,09/08/1996,06/25/1996 Hib (HbO) 07/10/1992, 2,02/10/1991,09/09 IPV 01/24/1995, 5,03/13/1991,09/09 Influenza injectable quadriv alent preservative free 12/08/2022,06/25/2015 Influenza, IIV3, injectable 03/02/2011 MMR 01/24/1995,07/25/1991 Pneumococcal Polysaccharide PPSV23 03/02/2011 Pneumococcal, Unspecified 03/02/2011 TD (adult), 2 Lf tetanus tox oid, preservative free, adsorbed 08/25/2021,10/22/2003 Tdap 10/07/2024,03/02/2011 Social History Tobacco Use Types Packs/Day Years [...] Sign Reading Time Taken Comments Blood Pressure 108/62 01/12/2025 2:36 PM EST Pulse 73 01/12/2025 2:36 PM EST Temperature 35.5 C (95.9 F) 01/12/2025 2:36 PM EST Respiratory Rate 20 01/12/2025 2:36 PM EST Oxygen Saturation 98% 01/12/2025 2:36 PM EST Inhaled Oxygen Concentration - - Weight 114 kg (250 lb 6.4 oz) 01/12/2025 2:36 PM EST Height 165.1 cm (5' 5 ) 01/12/2025 2:36 PM EST Body Mass Index 41.67 01/12/2025 2:36 PM EST Plan of Treatment Health Maintenance Due Date Last Done Comments Family Planning (PISQ) 2005 HPV Vaccines (1 - 3-dose series) 2005 Pneumococcal Vaccine: Pediatrics (0 to 5 Years) and At-Risk Patients (6 to 49) Years (2 of 2 - PCV) 03/02/2012 03/02/2011, 03/02/2011 COVID-19 Vaccine ( season) 2024 12/10/2020, 11/11/2020 Influenza Vaccine (#1) 2024 , 06/25/2015, 03/02/2011 SDOH Screening 05/12/2025 05/12/2024 Cervical Cancer Screening 11/01/2025 HPV/Cotest 11/01/2025 11/01/2020, 0805/2020, 11/01/2020 Pap Smear 11/01/2025 11/01/2020 Disability Screening 01/05/2026 01/05/2025 Alcohol/Substance Use Screening 01/12/2026 01/12/2025 Depression Screening 01/12/2026 01/12/2025, 01/13/20 25 Tobacco Screening 01/12/2026 01/12/2025 Lipid Panel 06/14/2028 06/15/2023, 07/08/2021 DTaP/Tdap/Td Vaccines (10 - Td or Tdap) 10/07/2034 10/07/2024, 08/25/2021, 02/24/2012, Additional history exists Zoster Vaccines (1 of [...] 11/23/2022 , 01/13/2022, 01/13/2022, Additional history exists Hepatitis A Vaccines Aged Out No long er eligible based on patient's age to complete this topic Meningococcal B Vaccine Aged Out No l onger eligible based on patient's age to complete [...] Procedure Name Priority Date/Time Associated Diagnosis Comments LIPID PANEL, STANDARD Routine 06/15/2023 10:40 AM EDT HEPATITIS C ANTIBODY Routine 11/23/2022 9:25 AM EDT HIV ANTIBODY/ANTIGEN ([place] DPH) Routine 11/23/2022 9:25 AM EDT HM PAP/HPV Routine 11/01/2020 from Last 3 Months or Most Recently Relevant to Health Maintenance Results * Lipid Panel, Standard (06/15/2023 10:40 AM EDT) Triglycerides 46 <150 mg/dL [facility] Comment:Desirable Triglyceri de: less than 150 mg/dLBorderline High Triglyceride 150-199 mg/dLHigh Triglyceride: 200-499 mg/dLVery High Triglyceride: greater than or equal to 5OO mg/dL Cholesterol 178 <200 mg/dL [facility] Comment:Desirable Cholestero l: less than 200 mg/dLBorderline High Cholesterol: 200-239 mg/dLHigh Cholesterol: greater than 239 mg/dL LDL Cholesterol Calculated 96 <100 mg/dL [facility] Comment:Desirable LDL: less than 100 mg/dLNear Optimal/Above Optimal LDL: 110- 129 mg/dLBorderline High LDL: 130-159 mg/dLHigh LDL: 160-189 mg/dLVery High LDL: greater than or equal to 190 mg/dL HDL Cholesterol 73 >40 mg/dL [facility] Comment:Desirable HDL: great er than 40 mg/dL Note: This HDL assay may give artificially low results in patients with liver disease. 06/15/2023 10:4 0 AM EDT 06/15/2023 10:40 AM EDT us Generic External Data Provider LAB BLOOD ORDERAB LES Final Result [facility] [address] [place] [address] [phone] * Hepatitis C Ab (11/23/2022 9:25 AM EDT) Hepatitis C Antibody Nonreactive Nonreactive [facility] Comment:Antibodies to HCV no t detected; does not exclude early acuteHCV infection. 11/23/2022 9:25 AM EDT 11/23/2022 9:25 AM EDT [facility] External Provider LAB BLO OD ORDERABLES Final Result Performing Organization Address [facility] Co de Phone Number [facility] [address] [place] [phone] * HIV Ab/Ag ([facility]) (11/23/2022 9:25 AM EDT) [facility] HIV AB/AG Nonreactive Nonreactive [facility] Comment:HIV-1 p24 Ag and/or HIV-1/HIV-2 Ab not detected.A test result that is nonreactive does not exclude thepossibility of exposure to or infection with HIV-1 and/orHIV-2. Nonreactive results in this assay for individualswith prior exposure to HIV-1 and/or HIV-2 may be due toantigen and antibody levels that are below the limit ofdetection of this assay.The FoldaxniFabule HIV Ag/Ab Combo assay result andsupplemental assay results should be interpreted inconjunction with the patient's clinical presentation,history and other laboratory results. If the results areinconsistent with clinical evidence, additional testing issuggested to confirm the result. 11/23/2022 9:25 AM EDT 11/23/2022 9:25 AM EDT Generic External Data Provider LAB BLOOD ORDERAB LES Final Result Performing Organization Address [facility] Co de Phone Number [facility] [address] [place] [phone] [phone] * Hm Pap Smear (11/01/2020) Pathologist [facility] Pap Negative for intraephithelial lesion or malignancy Negative for intraephithelial lesion or malignancy, Other HPV Undetected us Historical Provider HEALTH MAINTENANCE Final Result from Last 3 Months or Most Recently Relevant to Health Maintenance Insurance [facility] C3 Care Teams Linesperson Relationship Specialty Start Date End Date Ria Franks ANP [address] [place] [phone] PCP - General Family Medicine 02/27/20 Analisa Garcia Food Bagging Machine Operator 06/27/24
--- OUTSIDE RECORDS SUMMARY | 2025-02-25 21:00 | XMS_ITS | Encounter Summary ---
Author Organization [employer] Address [address] [place] [address] Care Team Providers Care Team Psychologist Name Role Phone Golden Ria RAMOS Primary Care Provider [phone] Encounter Details Date Type Department Care Team (Late st Contact Info) Description 12/15/2022 Abstract [facility] MEDICINE [address] [place] [address] Tamika Barnett Social History Tobacco Use Types [...] on file documented as of this encounter Procedures Procedure Name Priority Date/Time Associated Diagnosis Comments PAP/HPV Routine 11/01/2020 documented in this encounter Results * Pap Smear (11/01/2020) Pap Negative for intraephithelial lesion or malignancy Negative for intraephithelial lesion or malignancy, Other HPV Undetected us Historical Provider HEALTH MAINTENANCE Final Result documented in this encounter Visit Diagnoses Not on filedocumented in this encounter Care Teams Team Psychologist Relationship Specialty Start Date End Date Ria Franks ANP [address] [place] [address] PCP - General Family Medicine 02/27/20 Analisa Garcia Trackman 06/27/24 documented as of this encounter
--- OUTSIDE RECORDS SUMMARY | 2025-02-25 21:00 | XMS_ITS | Clinical Summary ---
Author Organization [facility] Address [address] [place] [address] Care Team Providers Care Automatic Mounter Name Role Phone Unknown Primary Care Provider [phone] Allergies No known active allergies Medications No known medications Social History Tobacco Use Types Packs/Day Years Used Date Smoking Tobacco: Never Assessed Comments Unknown Sex and Gender Information Value Date Recorded Sex Assigned at Not on file Legal Sex Female 6:19 PM EST Gender Identity Not on file Sexual Orientation Not on file Last Filed Vital Signs Vital Sign Reading Time Taken Comments Blood Pressure 144/88 10/14/2018 1:16 PM EDT Pulse 67 10/14/2018 1:16 PM EDT Temperature 36 C (96.8 F) 10/14/2018 1:16 PM EDT Respiratory Rate 18 [...] Pap Smear (Ages 21-65) 07/20/2011 Influenza Vaccine 10/10/2024 COVID-19 Vaccine ( - 2024-2 6 season) 2024 HPV Vaccines (No Doses Required) Completed Pneumococcal Vaccine: Pediat brayan (0-5 Years) and At-Risk Patients (6 to 49 Years) Aged Out No longer eligible b ased on patient's age to complete this topic Insurance MEDICAID OUT OF STATE [facility] Care Teams Automatic Mounter Relationship Specialty Start Date End Date Unknown Unknow Provider Address PCP - General 10/14/18
== END 2025-02-25 16:54 | disposition home or self-care (01) ==
LOC: HO.ENCR 16:31
PROVIDERS: PCP Nurse Practitioner Primary Care; Visit Provider Internal Medicine Endocrinology, Diabetes & Metabolism
DX: E04.2 Nontoxic multinodular goiter (principal); E28.2 Polycystic ovarian syndrome
CPT/HCPCS: 99213

== ENCOUNTER → 2025-02-25 16:30 | Outpatient (BNVA) | payer MEDICAID, SELFPAY | PROVIDERS: PCP Nurse Practitioner Primary Care; Visit Provider Internal Medicine Endocrinology, Diabetes & Metabolism | DX: O99.281 Endocrine, nutritional and metabolic diseases complicating pregnancy, first trimester (principal); E04.2 Nontoxic multinodular goiter; E28.2 Polycystic ovarian syndrome; Z3A.00 Weeks of gestation of pregnancy not specified | CPT/HCPCS: 99212 ==